=== PATIENT | female | born 1980 | race Caucasian/White ===

== ENCOUNTER 2020-04-26 08:40 | Outpatient (RCR) | payer OTHER, SELFPAY | END 2020-06-03 13:23 | disposition home or self-care (01) | LOC: HO.WCC 08:40 | PROVIDERS: PCP Internal Medicine; Visit Provider Plastic Surgery | DX: I87.311 Chronic venous hypertension (idiopathic) with ulcer of right lower extremity (principal); L97.812 Non-pressure chronic ulcer of other part of right lower leg with fat layer exposed; L89.891 Pressure ulcer of other site, stage 1; E66.01 Morbid (severe) obesity due to excess calories; I89.0 Lymphedema, not elsewhere classified | CPT/HCPCS: 11042 ==

== ENCOUNTER 2020-04-26 09:40 | Outpatient (REF) | payer OTHER, SELFPAY ==
[2020-04-26 11:41] LABS: Anion Gap 12 (12-20); Blood Urea Nitrogen 11 mg/dL (9-16); Carbon Dioxide 28 mmol/L (22-29); Chloride 103 mmol/L (96-108); Estimated Glomerular Filt Rate 56; Phosphorus 3.1 mg/dL (2.7-4.5); Potassium 4.2 mmol/l (3.3-5.1); Sodium 139 mmol/L (135-145)
[2020-04-26 11:54] LABS: Creatinine Urine 232.42 mg/dL; Microalbum/Creatinine Ratio Ur 5.4 ug/mg cr; Protein/Creatinine Ratio, Ur 0.08 (<0.2); Total Protein Urine Random 19 mg/dL (<12)
[2020-04-26 12:11] LABS: RBC Urine 0 /HPF (0); Squamous Epithelial Cell Urine 3+ /LPF
[2020-04-26 13:53] LABS: Appearance Urine CLOUDY; Color Urine YELLOW
[2020-04-26 13:54] LABS: Glucose Urine UA NEG (NEG); Leukocyte Esterase Urine 1+ (NEG); Nitrite Urine NEG (NEG); Specific Gravity - Urine 1.025 (1.005-1.025); Urine Blood NEG (NEG); Urine Ketones NEG (NEG); Urine Protein NEG (NEG-TRACE)
[2020-04-26 15:19] LABS: Renal w Reflex Lab Use Only Order verified
== END 2020-04-26 09:41 | disposition home or self-care (01) ==
LOC: HO.LAB 09:40
PROVIDERS: PCP Internal Medicine; Visit Provider Internal Medicine Nephrology
DX: A41.9 Sepsis, unspecified organism (principal); N17.9 Acute kidney failure, unspecified; E03.9 Hypothyroidism, unspecified; I89.0 Lymphedema, not elsewhere classified
CPT/HCPCS: 36415; 80051; 81001; 81003; 81015; 82043; 82310; 82565; 84100; 84156; 84520; 87086

== ENCOUNTER → 2020-06-09 13:13 | Outpatient (BNVA) | payer OTHER, SELFPAY | PROVIDERS: Visit Provider Internal Medicine | DX: Z76.89 Persons encountering health services in other specified circumstances (principal) ==

== ENCOUNTER 2023-12-11 07:30 | Outpatient (REF) | payer OTHER, SELFPAY ==
[2023-12-11 08:05] LABS: Hematocrit 40.8 % (37.0-47.0); Hemoglobin 12.3 g/dl (12.0-16.0); Mean Corpuscular HGB Conc 30.1 g/dl (31.0-35.0); Mean Corpuscular Hemoglobin 23.9 pg (27.0-33.0); Mean Corpuscular Volume 79.2 fL (80.0-98.0); Mean Platelet Volume 11.2 fL (9.4-12.3); Platelet Count 235 X10*3/uL (160-400); Red Blood Count 5.15 X10*6/uL (4.20-5.50); Red Cell Distribution Width 17.2 % (11.0-16.0)
[2023-12-11 08:12] LABS: Estimated Average Glucose 123 mg/dL; Hemoglobin A1c % 5.9 % (<6.0)
[2023-12-11 08:46] LABS: Alanine Aminotransferase 30 U/L (0-31); Alkaline Phosphatase 101 U/L (39-117); Anion Gap 13 (12-20); Aspartate Amino Transferase 18 U/L (5-31); Bilirubin Total 0.4 mg/dL (0.0-1.0); Blood Urea Nitrogen 10 mg/dL (9-16); Calcium 9.4 mg/dL (8.4-10.2); Carbon Dioxide 22 mmol/L (22-29); Chloride 109 mmol/L (96-108); Cholesterol 188 mg/dL (<200); Estimated Glomerular Filt Rate > 60; Glucose Fasting 134 mg/dL (60-99); HDL Cholesterol 34 mg/dL (>40); LDL Cholesterol Calculated 114 mg/dL (<100); Sodium 140 mmol/L (135-145); Total Protein 7.4 g/dL (6.5-8.0); Triglycerides 201 mg/dL (<150)
[2023-12-11 09:03] LABS: TSH reflex Free T4 9.68 uIU/mL (0.32-4.0); Vitamin D 25-OH Total 5.8 ng/mL (>30)
== END 2023-12-11 07:31 | disposition home or self-care (01) ==
LOC: HO.LAB 07:30
PROVIDERS: PCP Physician Assistant; Visit Provider Physician Assistant
DX: E78.2 Mixed hyperlipidemia (principal); R73.01 Impaired fasting glucose; E03.9 Hypothyroidism, unspecified; E55.9 Vitamin D deficiency, unspecified
CPT/HCPCS: 36415; 80053; 80061; 82306; 83036; 84439; 84443; 85027

== ENCOUNTER 2023-12-18 15:25 | Outpatient (AMB) | payer OTHER, SELFPAY ==
--- NOTE | 2023-12-18 15:28 | A.OFFPC_ITS ---
Vital Signs 12/18/23 15:29 Height 5 ft 5.5 in Weight 370 lb 9.553 oz BMI 60.7 BP 142/84 H Blood Pressure Location Rt radial Position Sitting Pulse 97 Pulse Source Pulse Oximeter Pulse Oximetry (%) 97 Oxygen Delivery Method Room Air Intake Visit Reasons: Follow Up [employer] Sales Consultant Required: No Accompanied by: Self / Same As Patient Allergies dog dander [DOG] Allergy (Unknown, Verified 12/18/23 16:08) SNEEZING/ITCHY pollen extracts [POLLEN] Allergy (Unknown, Verified 12/18/23 16:08) SNEEZING, ITCHY Medication List - Last Reconciled 12/18/23 by Hima Mccloud PA-C No Known Home Meds Tobacco use date assessed: 12/18/23 Dental Screening Dental Screen Date: 12/18/23 Did you have a dental visit in the last 12 months?: No Did you have a dental problem in the last 6 months where you did not have access to dental care?: No Was dental information given to patient?: Yes HPI Follow Up HPI Details ?patient is a 43 year female being here today for annual physical. Patient has a past medical history significant for morbid obesity, lymphedema, hypothyroidism and hyperlipidemia. Concern--> Patient does have severe agoraphobia and has not left home in over 3 years. She has severe anxiety about being in crowds or around other people. She reports her mood has been very up and down she feels as though she is bipolar. She is now interested in mental health medication and perhaps giving set up with a mental health therapist. .. Hypothyroid: Patient continues on levothyroxine 150 mcg. Most recent TSH elevated at 9. PLAN: Will increase her levothyroxine to 175 mcg . Hyperlipidemia: Again unable to get fasting labs due to her severe agoraphobia, has not been able to to leave her house in over 3 years. Most recent lipid panel showing excellent control over total cholesterol and LDL She continues on daily use of simvastatin .. ?smoker:? unfortunately patient continues to smoke and understands she does need to completely quit smoking. She reports she has been smoking more since she has been more anxious lately per Vaccines: Up-to-date with pneumonia vaccine, tetanus vaccine :Mammogram: Willing to do mammogram [facility] Medical History (Updated 12/18/23 @ 16:54 by Hima Mccloud PA-C) Lymphedema Hypothyroidism Surgical History No pertinent past surgical history Family History Father No problems noted. Mother Hypertension Hypothyroidism Maternal Grandmother Lung cancer Maternal Grandfather Colon cancer Maternal Uncle Bone cancer Social History Housing: Apartment Alcohol intake: never Patient Tobacco Use Status: Former Tobacco user Years Smoked: 20 e-Cigarette/Vaping Use: Never Used Second Hand Smoke Exposure: No Substance Use Type: Marijuana service: No Current occupational status: unemployed Cognitive needs: No Hearing needs: No Vision needs: Yes (glasses) Questionnaire PHQ-9 Over the last 2 weeks, how often have you been bothered by any of the following problems? 1. Little interest or pleasure in doing things: not at all 2. Feeling down, depressed, or hopeless: nearly every day 3. Trouble falling or staying asleep, or sleeping too much: nearly every day 4. Feeling tired or having little energy: nearly every day 5. Poor appetite or overeating: nearly every day 6. Feeling bad about yourself - or that you are a failure or have let yourself or your family down: nearly every day 7. Trouble concentrating on things, such as reading the newspaper or watching television: nearly every day 8. Moving or speaking so slowly that other people could have noticed. Or the opposite - being so fidgety or restless that you have been moving around a lot more than usual: nearly every day 9. Thoughts that you would be better off or of hurting yourself in some way: nearly every day Total score: 24 Depression Screening Interpretation: Positive Depression Screening Follow-up: Existing condition, New Medication prescribed and Community Mental Health Worker F/U Depression Screening Done: Yes 79965 - PHQ-9 Billing: Yes Source: Developed by Drs. Ryan Linn, Michelle Mckenzie, Edward Fletcher and colleagues, with an educational emil from [employer]. Thrive Questionnaire Date Thrive assessed: 12/18/23 I am a: Patient What is your living situation today?: I have a steady place to live Within the past 12 months, did the food you bought not last and you didn't have the money to get more?: Never true Within the past 12 months, did you worry whether your food would run out before you got money to buy more?: Never true Do you have trouble paying for medicines?: No Do you have trouble getting transportation to medical appointments?: No Do you have trouble paying your heating and electricity bill?: No Do you have trouble taking care of your child, family member or friend?: No Do you have trouble with day-to-day activities such as bathing, preparing meals, shopping, managing finances, etc.?: Yes Are you currently unemployed and looking for a job?: No Are you interested in more education?: No THRIVE Score: 0 AUDIT C Alcohol Use Questionnaire (AUDIT-C) 1. How often do you have a drink containing alcohol?: Never Total Score: 0 STEVEN-7 AMB Questionnaire STEVEN-7 Date STEVEN - 7 assessed: 12/18/23 Feeling nervous, anxious, or on edge: 3 = Nearly every day Not being able to stop or control worryin = Nearly every day Worrying too much about different things: 3 = Nearly every day Trouble relaxin = Nearly every day Being so restless that it is hard to sit still: 3 = Nearly every day Becoming easily annoyed or irritable: 3 = Nearly every day Feeling afraid as if something awful might happen: 3 = Nearly every day Total STEVEN-7 score (0-4 normal; 5-9 mild; 10-14 moderate; 15-21 severe): 21 Source: Developed by Drs. Ryan Linn, Michelle Mckenzie, Edward Fletcher and colleagues, with an educational emil from [employer]. STEVEN-7 Assessment Billing STEVEN-7 Assessment Tool: STEVEN-7 Assessment [id number] Review of Systems Const Denies body aches, Denies chills, Denies excessive sweating, Denies fatigue, Denies fever(s) and Denies headache(s) Eyes Denies blurry vision ENT Denies dysphagia, Denies vertigo, Denies dizziness, Denies headache(s), Denies hearing loss and Denies tinnitus Card Denies chest pain, Denies chest pain with activity, Denies syncope, Denies irregular heart rhythm and Denies dyspnea Resp Denies chest congestion, Denies cough, Denies hemoptysis, Denies dyspnea and Denies wheezing GI Denies abdominal pain, Denies melena, Denies hematochezia, Denies coffee ground emesis, Denies dysphagia, Denies diarrhea, Denies nausea and Denies vomiting Denies urinary frequency, Denies dysuria, Denies urinary hesitancy and Denies urinary urgency Musc Denies arthralgias, Denies limited range of motion, Denies muscle cramps and Denies muscle weakness Skin/Breast Denies rash and Denies skin ulcer Neuro Denies Abnormal speech present, Denies confusion, Denies vertigo, Denies dizziness, Denies syncope, Denies headache(s), Denies memory loss and Denies seizure-like activity Psych Denies anxiety, Denies confusion, Denies depression, Denies memory loss, Denies panic attacks and Denies paranoia Endo Denies excessive sweating, Denies fatigue, Denies flushing, Denies polydipsia an d Denies polyuria Aller/Immun Denies wheezing Physical exam (Primary Care) Vital Signs: Last Vital Signs Pulse 97 12/18/23 15:29 BP 142/84 H 12/18/23 15:29 Pulse Ox 97 12/18/23 15:29 Oxygen Delivery Method Room Air 12/18/23 15:29 BMI result Body Mass Index 60.7 BMI Assessment/Plan discussion: High BMI High, discussed plan: lifestyle, weight reduction, dietary and physical activity Tobacco/Smoking Status: Tobacco use Status Tobacco use date assessed 12/18/23 12/18/23 15:39 Patient Tobacco Use Status Former Tobacco user 12/18/23 15:40 Tobacco use type 12/18/23 15:40 e-Cigarette/Vaping Use Never Used 12/18/23 15:39 PHQ-9: PHQ-9 Score PHQ-9: Total score 12/18/23 16:14 Depression Screening Interpretation: Positive Depression Screening Follow-up: E xisting condition, New Medication prescribed and Community Mental Health Worker F/U Thrive Assessment: Date of Thrive Assessment Date Thrive assessed 12/18/23 12/18/23 15:39 Const Other: Morbidly obese General: cooperative, comfortable, no acute distress, alert and awake; No confusion Orientation/consciousness: oriented to person, oriented to place, patient oriented x3 and No confusion HENMT Head: Yes normocephalic Ears: external ears normal and TM's normal bilaterally Face and sinus: No sinus tenderness Mouth: Normal oral and palatal mucosa present and tongue normal Teeth and gingiva: dentition normal and gingiva normal Throat: Yes posterior oropharynx normal, Yes tonsils normal and Yes uvula midl ine Eyes Conjunctivae: conjunctivae normal Sclerae: sclerae normal Pupils: Equal, round and reactive pupils present EOM: EOMs intact bilaterally Direct Ophthalmoscopy: No no photophobia Neck Neck: Yes no lymphadenopathy, No tender and Yes no JVD Thyroid: Thyroid normal Carotids: no bruits Chest Chest palpation & inspection: no tenderness Resp Effort & Inspection: normal respiratory effort, no audible wheezes, not labored and no stridor Auscultation: no crackles, no rales, no rhonchi and no wheezes Cardio Jugular venous distension: no JVD Rate: regular rate, not bradycardic and not tachycardic Rhythm: regular rhythm Bruits: no carotid bruits Peripheral pulses: Peripheral pulses 2+ throughout GI Inspection: Yes normal to inspection, No abdominal wall ecchymosis and No visible herniation Palpation (GI): Soft to palpation, nontender, no guarding, not rigid and No hepatosplenomegaly present Auscultation: normoactive bowel sounds General: Yes no CVA tenderness Back/Spine/Pelvis Back: no CVA tenderness and No back tenderness Cervical Spine: cervical ROM normal Thoracic/Lumbar Spine: thoracic and lumbar spine normal to inspection, straight leg raise negative bilaterally, No thoraco-lumbar ROM limited and No lumbar spinal tenderness Skin Lesions: no lesions Rashes: no rashes Wounds: no wounds Neuro General: oriented to person, oriented to place, patient oriented x3, CN's II-XI intact bilaterally and No confusion Cranial nerves: Yes Equal, round and reactive pupils present and Yes Normal accommodation reflex present Cognition (Neuro): normal cognition Speech: No Abnormal speech present Gait exam (Neuro): Normal gait present Motor exam (neuro): 5/5 motor strength present throughout Extrem Right upper extremity: full ROM; no cyanosis Left upper extremity: full ROM; no cyanosis Right lower extremity: no edema Left lower extremity: no edema Psych Appearance: grossly normal Mental Status: mental status grossly normal Affect: normal affect Attitude: cooperative Thought process: Normal thought process present Assessment and Plan Assessment & Plan (1) Annual physical exam: Code(s): Z00.00 - Encounter for general adult medical examination without abnormal findings (2) Hypothyroidism: Code(s): E03.9 - Hypothyroidism, unspecified Qualifiers: Hypothyroidism type: unspecified Qualified Code(s): E03.9 - Hypothyroidism, unspecified Plan: Most recent TSH elevated at 9. Will increase her levothyroxine to 175 mcg. Again reviewed proper administration of the levothyroxine dose. (3) Agoraphobia: Code(s): F40.00 - Agoraphobia, unspecified Plan: She has extreme agoraphobia and has left her house in 3 years. Not interested in getting labs to check her cholesterol or thyroid at this time. Offered her telehealth mental health therapy though she is interested (4) HLD (hyperlipidemia): Code(s): E78.5 - Hyperlipidemia, unspecified Qualifiers: Hyperlipidemia type: mixed hyperlipidemia Qualified Code(s): E78.2 - Mixed hyperlipidemia Plan: WILL CONTINUE SIMVASTATIN. AGAIN ADVISED TO DO FASTING LABS. GOAL LDL TO BE BELOW 130 (5) Asthma: Code(s): J45.909 - Unspecified asthma, uncomplicated Qualifiers: Asthma complication type: uncomplicated Asthma persistence: intermittent Asthma severity: mild Qualified Code(s): J45.20 - Mild inter mittent asthma, uncomplicated Plan: PATIENT REPORTS HER ASTHMA HAS BEEN FAIRLY WELL CONTROLLED WITH P.R.N. USE OF HER ALBUTEROL INHALER. UNFORTUNATELY CONTINUES TO SMOKE AND DOES REPORT AT TIMES HAVING COUGHING FITS TO WHICH SHE ATTRIBUTES TO HER SMOKING.. (6) Tobacco dependence: Code(s): F17.200 - Nicotine dependence, unspecified, uncomplicated Plan: Patient does understand she needs to smoking declines my offers to start nicotin e replacement therapy and medications to help her quit. (7) MDD (major depressive disorder), recurrent episode, moderate: Code(s): F33.1 - Major depressive disorder, recurrent, moderate Plan: Patient's PHQ-9 score positive for depression which has been existing condition for her. She is now willing to try mental health medication. Will try Wellbutrin 150 SR to both help her with her depression and smoking. Will also try to set her up with a counselor to help her talk through for jameel feliz. (8) STEVEN (generalized anxiety disorder): Code(s): F41.1 - Generalized anxiety disorder Plan: Patient's STEVEN-7 score positive for anxiety which has been existing condition for her as well. Again will start Wellbutrin in hopes it will help her with her anxiety. She does use cigarette smoking to help her with her anxiety as well. (9) Breast cancer screening: Code(s): Z12.39 - Encounter for other screening for malignant neoplasm of breast Qualifiers: Breast cancer screening modality: mammogram Qualified Code(s): Z12.31 - Encounter for screening mammogram for malignant neoplasm of breast Plan: Willing to do mammogram (10) Bilateral knee pain: Code(s): M25.561 - Pain in right knee; M25.562 - Pain in left knee Qualifiers: Chronicity: chronic Qualified Code(s): M25.561 - Pain in right knee; M25.562 - Pain in left knee; G89.29 - Other chronic pain Plan: Having bilateral knee pain. Will get x-rays (11) Morbid obesity due to excess calories: Code(s): E66.01 - Morbid (severe) obesity due to excess calories Plan: Patient does understand her BMI is well over 50. She reports it is very difficult for her to exercise due to her mental health disorder. (12) Impaired glucose metabolism: Code(s): R73.09 - Other abnormal glucose Plan: Patient does understand her fasting blood sugar and A1c are in prediabetic range. She will work on low carbohydrate diet Orders: Orders XR knee LT 3V Today G89.29 - Other chronic pain, M25.561 - Pain in right knee, M25.562 - Pain in left knee Comprehensive [place]. Panel Fast 5 Months R73.01 - Impaired fasting glucose XR knee RT 3V Today G89.29 - Other chronic pain, M25.561 - Pain in right knee, M25.562 - Pain in left knee Hemoglobin A1c 5 Months R73.01 - Impaired fasting glucose Lipid Panel 5 Months E78.2 - Mixed hyperlipidemia Complete Blood Count no Diff 5 Months J45.20 - Mild intermittent asthma, uncomplicated TSH reflex Free T4 5 Months E03.9 - Hypothyroidism, unspecified MM screening mammo BI Today Z12.31 - Encounter for screening mammogram for malignant neoplasm of breast Referrals Counseling Referral F33.1 - Major depressive disorder, recurrent, moderate Medications: New mometasone 100 mcg/actuation (Asmanex HFA) 1 puff inhalation BID 30 days 13 grams 3RF J45.20 - Mild intermittent asthma, uncomplicated albuterol sulfate 90 mcg/actuation 1 inh inhalation QID 30 days PRN 8.5 grams 3RF shortness of breath or wheezing J45.20 - Mild intermittent asthma, uncomplicated simvastatin 20 mg PO DAILY 90 tabs 1RF E78.2 - Mixed hyperlipidemia levothyroxine 175 mcg PO DAILY 90 days 90 tabs 0RF E03.9 - Hypothyroidism, unspecified bupropion HCl SR (Wellbutrin SR) 150 mg PO BID 30 days 60 tabs 3RF F17.200 - Nicotine dependence, unspecified, uncomplicated Patient Instructions: Goal: LDL to be below 130 Barriers: Her agoraphobia, adherence to physical activity and healthy eating habits Coding Level of Care Code Est Pt Prev Care 40-64y(47320) Diagnoses Annual physical exam Z00.00 Hypothyroidism, unspecified type E03.9 Hypothyroidism type: unspecified Agoraphobia F40.00 Mixed hyperlipidemia E78.2 Hyperlipidemia type: mixed hyperlipidemia Mild intermittent asthma without complication J45.20 Asthma complication type: uncomplicated Asthma persistence: intermittent Asthma severity: mild Tobacco dependence F17.200 MDD (major depressive disorder), recurrent episode, moderate F33.1 STEVEN (generalized anxiety disorder) F41.1 Encounter for screening mammogram for malignant neoplasm of breast Z12.31 Breast cancer screening modality: mammogram Chronic pain of both knees M25.561; M25.562; G89.29 Chronicity: chronic Morbid obesity due to excess calories E66.01 Impaired glucose metabolism R73.09 Additional Codes STEVEN-7 Assessment Billing - STEVEN-7 Assessment Tool: STEVEN-7 Assessment [id number] ([id number])
[2023-12-18 15:29] VITALS: BP 142/84; PULSE 97; O2SAT 97; BMI 60.7
== END 2023-12-18 16:40 | disposition home or self-care (01) ==
PROVIDERS: PCP Physician Assistant; Visit Provider Physician Assistant
DX: Z00.00 Encounter for general adult medical examination without abnormal findings (principal); E03.9 Hypothyroidism, unspecified; F40.00 Agoraphobia, unspecified; E78.2 Mixed hyperlipidemia; J45.20 Mild intermittent asthma, uncomplicated; F17.200 Nicotine dependence, unspecified, uncomplicated; F33.1 Major depressive disorder, recurrent, moderate; F41.1 Generalized anxiety disorder; Z12.31 Encounter for screening mammogram for malignant neoplasm of breast; M25.561 Pain in right knee; E66.01 Morbid (severe) obesity due to excess calories; M25.562 Pain in left knee
CPT/HCPCS: 99396

== ENCOUNTER 2023-12-24 08:21 | Outpatient (REF) | payer OTHER, SELFPAY ==
--- NOTE | ~2023-12-24 | XR_ITS ---
EXAMINATION: XR KNEE, RIGHT CLINICAL INFORMATION: Pain in right knee COMPARISON: None available. TECHNIQUE: 3 views of the right knee. FINDINGS: No fracture. Moderate-sized joint effusion. Alignment is anatomic. There is mild narrowing of the medial joint compartment. Tricompartment marginal osteophytes are seen. No abnormal soft tissue calcification. XR/XR knee RT 3V IMPRESSION: 1. Mild osteoarthritis. 2. Moderate-sized joint effusion.
--- NOTE | ~2023-12-24 | XR_ITS ---
EXAMINATION: XR KNEE, LEFT CLINICAL INFORMATION: Pain in right knee COMPARISON: None available. TECHNIQUE: Three views of the left knee. FINDINGS: The bones are diffusely demineralized. Small joint effusion. Moderate narrowing of the medial compartment. Small tricompartmental osteophytes. XR/XR knee LT 3V IMPRESSION: Moderate degenerative changes.
== END 2023-12-24 08:22 | disposition home or self-care (01) ==
LOC: HO.XRAY 08:21
PROVIDERS: PCP Physician Assistant; Visit Provider Physician Assistant
DX: M25.561 Pain in right knee (principal); M25.562 Pain in left knee; G89.29 Other chronic pain
CPT/HCPCS: 73562

== ENCOUNTER 2024-01-15 11:37 | Outpatient (AMB) | payer OTHER, SELFPAY ==
--- NOTE | 2024-01-15 11:35 | A.OFFPC_ITS ---
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 Information Interpreted: non-clinical & clinical In Flight Technician: Not Required per policy Accompanied by: Self / Same As Patient Allergies dog dander [DOG] Allergy (Unknown, Verified 01/15/24 12:30) SNEEZING/ITCHY pollen extracts [POLLEN] Allergy (Unknown, Verified 01/15/24 12:30) SNEEZING, ITCHY Medication List - Last Reconciled 01/15/24 by Hima Mccloud PA-C albuterol sulfate 90 mcg/actuation 1 inh inhalation QID PRN 30 days budesonide 90 mcg/actuation (Pulmicort Flexhaler) 1 inh inhalation BID 30 days bupropion HCl SR (Wellbutrin SR) 150 mg PO BID 30 days levothyroxine 175 mcg PO DAILY 90 days simvastatin 20 mg PO DAILY Tobacco use date assessed: 12/18/23 Dental Screening Dental Screen Date: 12/18/23 HPI f/u mental health HPI Details Patient is a 43-year-old female being evaluated today via telephone. At last visit we discussed her anxiety and major depressive disorder and was started on Wellbutrin for both her depressive mood and her smoking. Unfortunately she reports she has not felt any difference in has not reduced her smoking. She is interested in trying a different medication to help her with her smoking. Also we discussed her knee x-rays which did show some mild arthritis and a moderate joint effusion. She is willing to see orthopedics to perhaps have fluid drained from knee. [facility] Medical History Lymphedema Hypothyroidism Surgical History No pertinent past surgical history Family History Father No problems noted. Mother Hypertension Hypothyroidism Maternal Grandmother Lung cancer Maternal Grandfather Colon cancer Maternal Uncle Bone cancer Social History Housing: Apartment Alcohol intake: never Patient Tobacco Use Status: Former Tobacco user Years Smoked: 20 e-Cigarette/Vaping Use: Never Used Second Hand Smoke Exposure: No Substance Use Type: Marijuana service: No Current occupational status: unemployed Cognitive needs: No Hearing needs: No Vision needs: Yes (glasses) Questionnaire Thrive Questionnaire Date Thrive assessed: 12/18/23 STEVEN-7 AMB Questionnaire STEVEN-7 Date STEVEN - 7 assessed: 12/18/23 Source: Developed by Drs. Ryan Linn, Michelle Mckenzie, Edward Fletcher and colleagues, with an educational emil from [employer]. Review of Systems Const Denies headache(s) Eyes Denies loss of vision ENT Denies vertigo, Denies dizziness, Denies headache(s) and Denies sore throat Card Denies chest pain, Denies leg edema and Denies lightheadedness Resp Denies cough, Denies hemoptysis and Denies wheezing GI Denies abdominal pain, Denies melena, Denies constipation, Denies diarrhea and Denies vomiting Denies urinary frequency, Denies dysuria and Denies urinary urgency Musc Denies arthralgias, Denies joint swelling, Denies numbness and Denies tingling Neuro Denies behavioral changes, Denies vertigo, Denies dizziness, Denies headache(s), Denies loss of vision, Denies memory loss, Denies numbness and Denies tingling Psych Denies anxiety, Denies behavioral changes, Denies depression, Denies memory loss and Denies panic attacks Kristian/Lymph Denies easy bleeding and Denies easy bruising Aller/Immun Denies wheezing Physical exam (Primary Care) Tobacco/Smoking Status: Tobacco use Status Tobacco use date assessed 12/18/23 01/15/24 11:35 Patient Tobacco Use Status Former Tobacco user 01/15/24 11:35 Tobacco use type 12/18/23 16:36 e-Cigarette/Vaping Use Never Used 01/15/24 11:35 Are you ready to quit: Yes Tobacco cessation counseling provided: Yes Items discussed: [employer]uitWorks Relapse Prevention: discussed the importance of a supportive environment, discussed negative mood or depression after quitting, weight gain after smoking is common and discussed dietary, exercise and/or lifestyle changes Number of minutes spent counselin CPT code: 69335 - 4-10 Minutes Thrive Assessment: Date of Thrive Assessment Date Thrive assessed 12/18/23 01/15/24 11:35 Telehealth Telehealth Telehealth Platform: Telephone Location of provider rendering services: practice address Location of patient: address on file Patient Identification confirmed using: Name, : Yes Telehealth method: voice only Patient verbally consented to treatment: Yes Patient verbally consented to billing insurance company: Yes Patient informed of any privacy concerns related to visit: Yes Minutes spent on Phone/Video with Pt.: 11 Assessment and Plan Assessment & Plan (1) Tobacco dependence: Code(s): F17.200 - Nicotine dependence, unspecified, uncomplicated Plan: As per HPI patient continues to smoke even reports smoking a bit more. Wellbutrin was not effective. She will like to try generic Chantix to help her with smoking cessation. Will follow-up in the next 4-6 weeks to evaluate the effectiveness of medication. (2) MDD (major depressive disorder), recurrent episode, moderate: Code(s): F33.1 - Major depressive disorder, recurrent, moderate Plan: Patient has started Wellbutrin for her depression though felt it was not effective for her depression and smoking cessation. Will discontinue Wellbutrin due to his being ineffective. Will start generic Chantix (3) Bilateral knee pain: Code(s): M25.561 - Pain in right knee; M25.562 - Pain in left knee Qualifiers: Chronicity: chronic Qualified Code(s): M25.561 - Pain in right knee; M25.562 - Pain in left knee; G89.29 - Other chronic pain Plan: Patient continues to have bilateral knee pain likely related to her weight. X- rays did show mild arthritis and moderate joint effusions. She is interested in seeing orthopedics for evaluation Orders: Referrals Orthopedics Referral G89.29 - Other chronic pain, M25.561 - Pain in right knee, M25.562 - Pain in left knee Medications: New varenicline 0.5 mg PO; Take 0.5 mg qd x 3 days, then 0.5 mg b.i.d. x4 days 11 tabs 0RF 7 days F17.200 - Nicotine dependence, unspecified, uncomplicated, F33.1 - Major depressive disorder, recurrent, moderate varenicline 1 mg PO BID 56 tabs 3RF 28 days F17.200 - Nicotine dependence, unspecified, uncomplicated, F33.1 - Major depressive disorder, recurrent, moderate mometasone 100 mcg/actuation (Asmanex HFA) 1 puff inhalation BID 13 grams 3RF 30 days G89.29 - Other chronic pain, M25.561 - Pain in right knee, M25.562 - Pain in left knee Discontinued bupropion HCl SR (Wellbutrin SR) Discontinued Reason: Doctor's Order 150 mg PO BID 30 days 60 tabs 3RF F17.200 - Nicotine dependence, unspecified, uncomplicated budesonide 90 mcg/actuation (Pulmicort Flexhaler) Discontinued Reason: Doctor's Order 1 inh inhalation BID 30 days 1 ea 3RF J45.20 - Mild intermittent asthma, uncomplicated Coding Level of Care Code Tele Est Pt Level 4 (23935) Diagnoses Tobacco dependence F17.200 MDD (major depressive disorder), recurrent episode, moderate F33.1 Chronic pain of both knees M25.561; M25.562; G89.29 Chronicity: chronic Additional Codes Vital Signs *Quality* - CPT code: 60999 - 4-10 Minutes ([id number])
== END 2024-01-15 13:27 | disposition home or self-care (01) ==
LOC: HO.HMGH 11:37
PROVIDERS: PCP Physician Assistant; Visit Provider Physician Assistant
DX: F17.200 Nicotine dependence, unspecified, uncomplicated (principal); F33.1 Major depressive disorder, recurrent, moderate; M25.561 Pain in right knee; M25.562 Pain in left knee; G89.29 Other chronic pain
CPT/HCPCS: 99214; 99406

== ENCOUNTER 2024-01-16 15:26 | Outpatient (REF) | payer OTHER, SELFPAY ==
--- NOTE | ~2024-01-16 | MM_ITS ---
EXAMINATION: MM SCREENING DIGITAL BREAST TOMOSYNTHESIS, BILATERAL CLINICAL INFORMATION: Screening. Asymptomatic. COMPARISON: Mammography: This is a baseline mammogram. TECHNIQUE: Digital breast tomosynthesis is performed in both the craniocaudal and mediolateral oblique views along with computer-aided detection (CAD). Synthesized 2D images are generated from the tomosynthesis. FINDINGS: The breasts are almost entirely fatty (ACR BI-RADS breast composition Category a). There are no significant masses, abnormal calcifications, or other abnormalities. MM/MM tomosynthesis screening BI IMPRESSION: No mammographic evidence of malignancy. ASSESSMENT: BI-RADS BI-RADS 1 - Negative RECOMMENDATION: Routine annual mammography screening. 1 year F/U This examination should not preclude the clinical evaluation of a suspicious palpable abnormality. This patient's information was entered into a reminder system with a target due date for their next mammogram.
== END 2024-01-16 15:27 | disposition home or self-care (01) ==
LOC: HO.MAMMO 15:26
PROVIDERS: PCP Physician Assistant; Visit Provider Physician Assistant
DX: Z12.31 Encounter for screening mammogram for malignant neoplasm of breast (principal)
CPT/HCPCS: 77063; 77067

== ENCOUNTER → 2024-01-16 15:30 | Outpatient (BNV) | payer OTHER, SELFPAY | PROVIDERS: PCP Physician Assistant; Visit Provider Radiology Diagnostic Radiology | DX: Z12.31 Encounter for screening mammogram for malignant neoplasm of breast (principal) | CPT/HCPCS: 77063; 77067 ==

== ENCOUNTER 2024-02-13 08:47 | Outpatient (AMB) | payer OTHER, SELFPAY ==
--- NOTE | 2024-02-13 08:53 | A.OFFVIS_ITS ---
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 Patient reports knee pain has been present for years with her right knee being the worse. States pain is located at the anterior, lateral and medial aspect of knee. Her pain is worse with prolong standing and walking as well as discomfort with sleeping. No previous tx. Finds no relief with Tylenol or Motrin. Allergies dog dander [DOG] Allergy (Unknown, Verified 02/13/24 09:01) SNEEZING/ITCHY pollen extracts [POLLEN] Allergy (Unknown, Verified 02/13/24 09:01) SNEEZING, ITCHY Medication List - Last Reconciled 02/13/24 by Franco Newby PA-C albuterol sulfate 90 mcg/actuation 1 inh inhalation QID PRN 30 days levothyroxine 175 mcg PO DAILY 90 days mometasone 100 mcg/actuation (Asmanex HFA) 1 puff inhalation BID 30 days simvastatin 20 mg PO DAILY varenicline 0.5 mg PO; Take 0.5 mg qd x 3 days, then 0.5 mg b.i.d. 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 She reports knee pain has been present for years with her right knee being the worse. She states pain is located at the anterior, lateral and medial aspect of knee. She reports that pain is worse with prolonged standing and walking. She has been experiencing discomfort while sleeping. Denies any previous treatment. She finds no relief with Tylenol or Motrin. She states she injured her right leg a couple of years ago. She has been experiencing sharp shooting pain while walking, sitting, and standing. She was concerned about bow legs. [facility] Medical History Lymphedema Hypothyroidism Surgical History No pertinent past surgical history Family History Father No problems noted. Mother Hypertension Hypothyroidism Maternal Grandmother Lung cancer Maternal Grandfather Colon cancer Maternal Uncle Bone cancer Social History Housing: Apartment Alcohol intake: never Patient Tobacco Use Status: Former Tobacco user Years Smoked: 20 e-Cigarette/Vaping Use: Never Used Second Hand Smoke Exposure: No Substance Use Type: Marijuana service: No Current occupational status: unemployed Cognitive needs: No Hearing needs: No Vision needs: Yes (glasses) Review of Systems Const All systems reviewed & are unremarkable except as noted in HPI and below Physical Exam Vital Signs: BMI result Body Mass Index 60.6 Const General: cooperative, healthy appearing, comfortable and no acute distress Orientation/consciousness: patient oriented x3 Neck Neck: Yes normal visual inspection and Yes no JVD Chest Chest palpation & inspection: normal inspection of the chest Resp Effort & Inspection: normal respiratory effort Auscultation: clear to auscultation bilaterally, crackles (no), rales (no), rhonchi (no) and wheezes (no) Cardio Jugular venous distension: no JVD Rate: regular rate Rhythm: regular rhythm Heart sounds: S1 normal heart sound present, S2 normal heart sound present, Murmur heart sound present (no) and Rub heart sound present (no) Neuro General: patient oriented x3 Extrem Other: Bilateral knee: Skin intact, no erythema or joint effusion. She has lateral retropatellar tenderness. Full ROM with crepitus. Negative Damion?s. No ligamentous laxity. NVI. General: Yes normal to inspection, Yes no pedal edema and Yes no calf tenderness Office Procedures Joint Injection/Drain Joint Injection/Drain Primary Site: left knee Secondary Site: right knee Prep: site was prepped using aseptic technique, ethochloride spray was applied and injection warnings given Injected: 40 mg of, DepoMedrol, with 8 mL of, 1% plain lidocaine and in the joint Approach Used: anterolateral Procedure: The patient tolerated the procedure well and there was some relief with the local anesthesia Coding 45529 - Glenohumeral/Tronchanteric Bursa/Intraarticular Procedure code (CPT) selection complete Results Reviewed Results Reviewed: xr of bilat knee obtained on 12/24/23 IMPRESSION: 1. Mild osteoarthritis. 2. Moderate-sized joint effusion. Assessment & Plan Assessment & Plan (1) Patellofemoral disorder of both knees: Code(s): M22.2X1 - Patellofemoral disorders, right knee; M22.2X2 - Patellofemoral disorders, left knee Category: Medical Plan We discussed options today, which include steroid injection. The patient did consent to move forward with the bilateral knee steroid injection, which was tolerated well. I recommended rest, ice, and elevation and OTC anti- inflammatories as needed for discomfort. If symptoms persist over the next 6-8 weeks, they will contact the office, otherwise as needed. We also discussed their diabetes and the effect the steroid injection can have on their blood glucose levels; therefore, they will continue to monitor these very closely over the next 72 hours. If there are any concerns, they should report to the ED immediately. Patient Instructions: Scribed for Franco Newby PA-C, by Rocío Soni medical records technician, on 02/13/2024 at 9:30 AM EST. IFranco PA-C, have personally reviewed and agree with the information entered by the scribe. Coding Level of Care Code New Pt Level 3 (74067) Diagnoses Patellofemoral disorder of both knees M22.2X1; M22.2X2 CPT Codes Coding - Joint 7: 20233 - Glenohumeral/Tronchanteric Bursa/Intraarticular ([id number])
[2024-02-13 09:00] VITALS: BMI 60.6
== END 2024-02-13 10:25 | disposition home or self-care (01) ==
LOC: HO.HOS 08:47
PROVIDERS: PCP Physician Assistant; Visit Provider Physician Assistant
DX: M22.2X1 Patellofemoral disorders, right knee (principal); M22.2X2 Patellofemoral disorders, left knee
CPT/HCPCS: 20610; 99203

== ENCOUNTER → 2024-02-13 08:47 | Outpatient (BNVA) | payer OTHER, SELFPAY | PROVIDERS: PCP Physician Assistant; Visit Provider Physician Assistant | DX: M22.2X1 Patellofemoral disorders, right knee (principal); M22.2X2 Patellofemoral disorders, left knee | CPT/HCPCS: 20610; 99202; J1010 ==

== ENCOUNTER 2024-08-06 10:44 | Outpatient (REF) | payer OTHER, SELFPAY ==
--- NOTE | ~2024-08-06 | XR_ITS ---
EXAMINATION: XR CERVICAL SPINE 2-3 VIEWS HISTORY: M54.2 - Cervicalgia COMPARISON: There are no prior studies for comparison. FINDINGS: AP, lateral, and open-mouth odontoid views of the cervical spine are submitted. Osseous mineralization is normal. Seven cervical vertebral bodies are identified maintaining normal height and alignment without evidence of fracture or subluxation. There is mild anterior osteophyte formation at C5-6 and C6-7. The remaining intervertebral disc spaces are maintained. The odontoid and lateral masses of C1 are intact. There is no prevertebral soft tissue swelling. XR/XR cervical spine 3V IMPRESSION: Minimal degenerative changes at C5-6 and C7. Electronically signed by: Ryan Mtz MD 08/08/2024 07:50 AM EST
--- NOTE | ~2024-08-06 | XR_ITS ---
EXAMINATION: XR ANKLE 3 OR MORE VIEWS LEFT HISTORY: M25.572 - Pain in left ankle and joints of left foot COMPARISON: There are no prior studies available for comparison. FINDINGS: Three views of the left ankle are submitted. Osseous mineralization is normal. There is no fracture or dislocation. The joint spaces are preserved. There are prominent calcaneal spurs at the plantar aspect and at the insertion of the Achilles tendon. The soft tissues are unremarkable. XR/XR ankle LT min 3V IMPRESSION: Calcaneal spurs at the plantar aspect and at the insertion of the Achilles tendon. Otherwise unremarkable examination of the left ankle. Electronically signed by: Ryan Mtz MD 08/08/2024 07:54 AM EST
--- NOTE | ~2024-08-06 | XR_ITS ---
EXAMINATION: XR CHEST 2 VIEWS HISTORY: R05.3 - Chronic cough COMPARISON: Comparison is made with the prior examination dated 03/17/2020. FINDINGS: PA and lateral views of the chest are submitted. The lungs are expanded and clear. There is no pleural effusion, pneumothorax, or pulmonary vascular congestion. The heart is normal in size. There is mild degenerative disc disease of the spine. XR/XR chest 2V IMPRESSION: No acute cardiopulmonary abnormality. Electronically signed by: Ryan Mtz MD 08/08/2024 07:55 AM EST
--- NOTE | ~2024-08-06 | XR_ITS ---
EXAMINATION: XR THORACIC SPINE 3 VIEWS HISTORY: M54.6 - Pain in thoracic spine COMPARISON: There are no prior studies for comparison. FINDINGS: AP and lateral views of the thoracic spine are submitted. Osseous mineralization is normal. The vertebral bodies maintain normal height and alignment without evidence of fracture or subluxation. There is mild degenerative disc disease with disc space narrowing and osteophyte formation. The visualized paraspinal soft tissues are unremarkable. XR/XR thoracic spine 3V IMPRESSION: Mild degenerative disc disease. Electronically signed by: Ryan Mtz MD 08/08/2024 07:51 AM EST
--- NOTE | ~2024-08-06 | XR_ITS ---
EXAMINATION: XR ELBOW 1-2 VIEWS LEFT HISTORY: M25.522 - Pain in left elbow COMPARISON: There are no prior studies available for comparison. FINDINGS: Three views of the left elbow are submitted. Osseous mineralization is normal. There is no fracture or dislocation. The joint spaces are preserved. The soft tissues are unremarkable. XR/XR elbow LT 2V IMPRESSION: Unremarkable examination of the left elbow. Electronically signed by: Ryan Mtz MD 08/08/2024 07:52 AM EST
--- NOTE | ~2024-08-06 | XR_ITS ---
EXAMINATION: XR LUMBAR SPINE 2-3 VIEWS HISTORY: M54.50 - Low back pain, unspecified COMPARISON: There are no prior studies for comparison. FINDINGS: AP, lateral, and coned down views of the lumbar spine are submitted. Osseous mineralization is normal. Five nonrib-bearing lumbar vertebral bodies are identified, maintaining normal height and alignment without evidence of fracture or spondylolisthesis. There is minimal degenerative disc disease with anterior osteophyte formation. The posterior elements are intact. The visualized paraspinal soft tissues are unremarkable. XR/XR lumbar spine 2-3V IMPRESSION: Minimal degenerative changes. Electronically signed by: Ryan Mtz MD 08/08/2024 07:54 AM [facility]
== END 2024-08-06 10:45 | disposition home or self-care (01) ==
LOC: HO.LAB 10:44
PROVIDERS: PCP Physician Assistant; Visit Provider Physician Assistant
DX: R73.09 Other abnormal glucose (principal); I10 Essential (primary) hypertension; R05.3 Chronic cough; Z23 Encounter for immunization; F33.1 Major depressive disorder, recurrent, moderate; F41.1 Generalized anxiety disorder; E03.9 Hypothyroidism, unspecified; E78.2 Mixed hyperlipidemia; M25.522 Pain in left elbow; M54.50 Low back pain, unspecified; G89.29 Other chronic pain; M25.572 Pain in left ankle and joints of left foot; M54.6 Pain in thoracic spine; M54.2 Cervicalgia; K59.01 Slow transit constipation; E66.813 Obesity, class 3; Z68.44 Body mass index [BMI] 60.0-69.9, adult; F17.200 Nicotine dependence, unspecified, uncomplicated; Z79.899 Other long term (current) drug therapy
CPT/HCPCS: 71046; 72040; 72072; 72100; 73070; 73610; 83036; 90471; 90656; 96127; 99212

== ENCOUNTER 2024-08-06 10:44 | Outpatient (AMB) | payer OTHER, SELFPAY ==
--- NOTE | 2024-08-06 10:52 | A.OFFPC_ITS ---
Vital Signs 08/06/24 10:59 Height 5 ft 5.5 in Weight 369 lb 14.97 oz BMI 60.6 BP 140/80 H Blood Pressure Location Lt brachial Position Sitting Pulse 92 Pulse Source Pulse Oximeter Temp 97.3 F Temp Source Temporal Artery Scan Pulse Oximetry (%) 97 Oxygen Delivery Method Room Air Intake Visit Reasons: f/u IGM/ HLD Special Delivery Messenger Required: No Accompanied by: Self / Same As Patient Allergies dog dander [DOG] Allergy (Unknown, Verified 08/06/24 11:11) SNEEZING/ITCHY pollen extracts [POLLEN] Allergy (Unknown, Verified 08/06/24 11:11) SNEEZING, ITCHY Medication List - Last Reconciled 08/06/24 by Hima Mccloud PA-C albuterol sulfate 90 mcg/actuation 1 inh inhalation QID PRN 90 days levothyroxine 175 mcg PO DAILY 90 days mometasone 100 mcg/actuation (Asmanex HFA) 1 puff inhalation BID 90 days simvastatin 20 mg PO DAILY varenicline 0.5 mg PO; Take 0.5 mg qd x 3 days, then 0.5 mg b.i.d. x4 days 7 days varenicline 1 mg PO BID 28 days Tobacco use date assessed: 08/06/24 Dental Screening Dental Screen Date: 08/06/24 Did you have a dental visit in the last 12 months?: No Did you have a dental problem in the last 6 months where you did not have access to dental care?: No Was dental information given to patient?: Patient declined HPI f/u IGM/ HLD HPI Details patient is a 44 year female being here today for follow-up visit Patient has a past medical history significant for morbid obesity, lymphedema, h ypothyroidism and hyperlipidemia. Concern--> patient reports having pain in her ankle, elbow, lower back and mid thoracic spine. She is asking for a full body scan . Unfortunately continues to suffer with agoraphobia though she is talking to a mental health therapist and working on getting out of the house more. Generally gets out of the house for medical appointments. .. Hypothyroid: Patient continues on levothyroxine 150 mcg. Most recent TSH elevated at 9. She continues on levothyroxine 175 mcg. Impaired glucose metabolism: Most recent A1c has improved to 5.7 . Hyperlipidemia: Again unable to get fasting labs due to her severe agoraphobia, has not been able to to leave her house in over 3 years. Most recent lipid panel showing excellent control over total cholesterol and LDL She continues on daily use of simvastatin .. ?smoker:? unfortunately patient continues to smoke and understands she does need to completely quit smoking. Has tried Chantix nicotine patches though have not been effective for her. She reports she has been smoking more since she has been more anxious lately . Laboratory Tests 03/19/20 12/11/23 08/06/24 03:04 07:49 10:54 RBC 5.15 Hgb 12.3 Creatinine 0.87 Fasting Glucose 134 H Hgb A1c (Clinic) 5.7 Hemoglobin A1c % 5.9 Triglycerides 201 H LDL Cholesterol, C alc 114 H TSH 3rd Generation 82.70 H TSH 9.68 H PFSH Medical History Lymphedema Hypothyroidism Surgical History No pertinent past surgical history Family History Father No problems noted. Mother Hypertension Hypothyroidism Maternal Grandmother Lung cancer Maternal Grandfather Colon cancer Maternal Uncle Bone cancer Social History Housing: Apartment Alcohol intake: never Patient Tobacco Use Status: Former Tobacco user Years Smoked: 20 e-Cigarette/Vaping Use: Never Used Second Hand Smoke Exposure: No Substance Use Type: Marijuana service: No Current occupational status: unemployed Cognitive needs: No Hearing needs: No Vision needs: Yes (glasses) Questionnaire PHQ-9 Over the last 2 weeks, how often have you been bothered by any of the following problems? 1. Little interest or pleasure in doing things: nearly every day 2. Feeling down, depressed, or hopeless: nearly every day 3. Trouble falling or staying asleep, or sleeping too much: nearly every day 4. Feeling tired or having little energy: nearly every day 5. Poor appetite or overeating: nearly every day 6. Feeling bad about yourself - or that you are a failure or have let yourself or your family down: nearly every day 7. Trouble concentrating on things, such as reading the newspaper or watching television: nearly every day 8. Moving or speaking so slowly that other people could have noticed. Or the opposite - being so fidgety or restless that you have been moving around a lot more than usual: nearly every day 9. Thoughts that you would be better off or of hurting yourself in some way: nearly every day Total score: 27 Depression Screening Interpretation: Positive Depression Screening Follow-up: Existing condition and In treatment Depression Screening Done: Yes 61544 - PHQ-9 Billing: Yes Source: Developed by Drs. Ryan Linn, Michelle Mckenzie, Edward Fletcher and colleagues, with an educational emil from [employer]. Thrive Questionnaire Date Thrive assessed: 08/06/24 I am a: Patient What is your living situation today?: I have a steady place to live Within the past 12 months, did the food you bought not last and you didn't have the money to get more?: Never true Within the past 12 months, did you worry whether your food would run out before you got money to buy more?: Never true Do you have trouble paying for medicines?: No Do you have trouble getting transportation to medical appointments?: No Do you have trouble paying your heating and electricity bill?: No Do you have trouble taking care of your child, family member or friend?: No Do you have trouble with day-to-day activities such as bathing, preparing meals, shopping, managing finances, etc.?: No Are you currently unemployed and looking for a job?: No Are you interested in more education?: No Please select the resources that you would like help with: None Currently or been in a relationship where the following occur: No concerns reported THRIVE Score: 0 AUDIT C Alcohol Use Questionnaire (AUDIT-C) 1. How often do you have a drink containing alcohol?: Never 3. How often do you have six or more drinks on one occasion?: Never Total Score: 0 STEVEN-7 AMB Questionnaire STEVEN-7 Date STEVEN - 7 assessed: 08/06/24 Feeling nervous, anxious, or on edge: 3 = Nearly every day Not being able to stop or control worryin = Nearly every day Worrying too much about different things: 3 = Nearly every day Trouble relaxin = Nearly every day Being so restless that it is hard to sit still: 3 = Nearly every day Becoming easily annoyed or irritable: 3 = Nearly every day Feeling afraid as if something awful might happen: 3 = Nearly every day Total STEVEN-7 score (0-4 normal; 5-9 mild; 10-14 moderate; 15-21 severe): 21 Source: Developed by Drs. Ryan Linn, Michelle Mckenzie, Edward Fletcher and colleagues, with an educational emil from [employer]. STEVEN-7 Assessment Billing STEVEN-7 Assessment Tool: STEVEN-7 Assessment 15379 Physical exam (Primary Care) Vital Signs: Last Vital Signs Temp 97.3 F 08/06/24 10:59 Pulse 92 08/06/24 10:59 BP 140/80 H 08/06/24 10:59 Pulse Ox 97 08/06/24 10:59 Oxygen Delivery Method Room Air 08/06/24 10:59 BMI result Body Mass Index 60.6 BMI Assessment/Plan discussion: High BMI High, discussed plan: lifestyle, weight reduction, dietary and physical activity Tobacco/Smoking Status: Tobacco use Status Tobacco use date assessed 08/06/24 08/06/24 11:12 Patient Tobacco Use Status Former Tobacco user 08/06/24 10:52 Tobacco use type 01/18/24 14:03 e-Cigarette/Vaping Use Never Used 08/06/24 10:52 Are you ready to quit: No Tobacco cessation counseling provided: Yes Items discussed: Nicotine replacement and QuitWorks Relapse Prevention: discussed the importance of a supportive environment, discussed negative mood or depression after quitting, weight gain after smoking is common and discussed dietary, exercise and/or lifestyle changes Number of minutes spent counselin CPT code: 00647 - 4-10 Minutes PHQ-9: PHQ-9 Score PHQ-9: Total score 27 08/06/24 11:22 Depression Screening Interpretation: Positive Depression Screening Follow-up: Existing condition and In treatment Thrive Assessment: Date of Thrive Assessment Date Thrive assessed 08/06/24 08/06/24 11:08 Currently or been in a relationship where the following occur: No concerns reported Office Procedures Flu Questionnaire Does the patient have a severe egg allergy?: No Does the patient have severe life threatening allergies?: No Does the patient have a fever or illness today?: No Has the patient ever had Guillain-[place] Syndrome?: No Has the patient ever had any past reaction to a flu shot?: No Results AMB Hemoglobin A1c AMB Hemoglobin A1c 5.7 % Last Edit by NICK Stacy on 08/06/24 11:09 Immunizations Fluarix Triv [id number] (PF) 45 mcg (15 mcg x 3)/0.5 mL IM syringe Performing Provider: Hima Mccloud PA-C [facility] Administered by: NICK Stacy on 08/06/24 11:09 Dose Route Admin Location Dispensed Lot Number Expiration Date [employer] 0.5 mL IM Left Deltoid 0.5 mL [id number] 01/19/25 [id number] [employer] VIS Given Date VIS Provided VIS Publication Date 08/06/24 Single Vaccine 21 Eligibility Eligibility Date Funding Source Not [facility] Eligible 08/06/24 Private Results Reviewed Results Reviewed: Laboratory Last Values Hgb A1c (Clinic) 5.7 % (4.0-6.0) 08/06/24 10:54 Coding Level of Care Code Est Pt Level 4 (69488) Diagnoses Impaired glucose metabolism R73.09 Primary hypertension I10 Hypertension type: primary hypertension Chronic cough R05.3 Cough type: chronic MDD (major depressive disorder), recurrent episode, moderate F33.1 STEVEN (generalized anxiety disorder) F41.1 Hypothyroidism, unspecified type E03.9 Hypothyroidism type: unspecified Mixed hyperlipidemia E78.2 Hyperlipidemia type: mixed hyperlipidemia Left elbow pain M25.522 Lumbar spine pain M54.50 Chronic pain of left ankle M25.572; G89.29 Chronicity: chronic Thoracic spine pain M54.6 Cervical spine pain M54.2 Slow transit constipation K59.01 Constipation type: slow transit constipation Class 3 obesity E66.813 Tobacco dependence F17.200 Additional Codes STEVEN-7 Assessment Billing - STEVEN-7 Assessment Tool: STEVEN-7 Assessment 16438 ([id number]) PHQ-9 - 39394 - PHQ-9 Billing: Yes ([id number]) Vital Signs *Quality* - CPT code: 40226 - 4-10 Minutes ([id number]) Assessment & Plan Assessment & Plan (1) Impaired glucose metabolism: Code(s): R73.09 - Other abnormal glucose Category: Medical Plan: Today's A1c of 5.7 from 5.9. Unfortunately has not lost much weight. She has been trying to work on a lower calorie diet. (2) HTN (hypertension): Code(s): I10 - Essential (primary) hypertension Category: Medical Qualifiers: Hypertension type: primary hypertension Qualified Code(s): I10 - Essential (primary) hypertension Plan: Patient's blood pressure elevated today in office. She is willing to start blood pressure medication. Will start hydrochlorothiazide 12.5 daily. Goal blood pressures to be below 140/90 (3) Cough: Code(s): R05.9 - Cough, unspecified Category: Medical Qualifiers: Cough type: chronic Qualified Code(s): R05.3 - Chronic cough Plan: Patient reports having a chronic cough over the last several years. She does understand this probably is related to her tobacco use disorder and her asthma. She is willing to get an x-ray of her chest to evaluate for any consolidation. Will also send for PFT testing to evaluate for asthma severity. She is willing to try a maintenance inhaler to help capture better control over asthma. Again advised strongly to stop smoking. (4) MDD (major depressive disorder), recurrent episode, moderate: Code(s): F33.1 - Major depressive disorder, recurrent, moderate Category: Medical Plan: Patient's PHQ-9 score positive for moderate to severe depression which has been existing condition for her.. Patient continues to suffer depression and she is speaking with a mental health therapist at this time. She is not interested in mental health medications at this time (5) STEVEN (generalized anxiety disorder): Code(s): F41.1 - Generalized anxiety disorder Category: Medical Plan: Patient's STEVEN-7 score positive for severe anxiety. Patient continues to suffer with anxiety particularly agoraphobia. She has been working with her mental therapist on this. (6) Hypothyroidism: Code(s): E03.9 - Hypothyroidism, unspecified Category: Medical Qualifiers: Hypothyroidism type: unspecified Qualified Code(s): E03.9 - Hypothyroidism, unspecified Plan: Patient continues on levothyroxine 175 mcg which was increased in the spring. Will recheck TSH to assure normal TSH (7) HLD (hyperlipidemia): Code(s): E78.5 - Hyperlipidemia, unspecified Category: Medical Qualifiers: Hyperlipidemia type: mixed hyperlipidemia Qualified Code(s): E78.2 - Mixed hyperlipidemia Plan: Most recent lipid panel showing good control over total cholesterol and LDL. Will continue simvastatin 20 mg with goal LDL to remain below 130 (8) Left elbow pain: Code(s): M25.522 - Pain in left elbow Category: Medical Plan: As per HPI (9) Lumbar spine pain: Code(s): M54.50 - Low back pain, unspecified Category: Medical Plan: As per HPI will get x-rays (10) Left ankle pain: Code(s): M25.572 - Pain in left ankle and joints of left foot Category: Medical Qualifiers: Chronicity: chronic Qualified Code(s): M25.572 - Pain in left ankle and joints of left foot; G89.29 - Other chronic pain Plan: As per HPI (11) Thoracic spine pain: Code(s): M54.6 - Pain in thoracic spine Category: Medical Plan: As above (12) Cervical spine pain: Code(s): M54.2 - Cervicalgia Category: Medical Plan: As above (13) Constipation: Code(s): K59.00 - Constipation, unspecified Category: Medical Qualifiers: Constipation type: slow transit constipation Qualified Code(s): K59.01 - Slow transit constipation Plan: Patient continues to suffer from constipation. This could be related to her mental health disorder as a irritable bowel constipation type. Will supply patient with thought her MiraLax to use to help reduce bowel movements. (14) Class 3 obesity: Code(s): E66.813 - Obesity, class 3 Category: Medical Plan: Patient does understand her BMI is over 60 and will try to work on better eating habits. She has not been able to be physically active due to her severe anxiety and her pain complaints. (15) Tobacco dependence: Code(s): F17.200 - Nicotine dependence, unspecified, uncomplicated Category: Medical Plan: Patient does understand she needs to quit smoking. Has tried Chantix and nicotine replacement though have not been effective. She has a lot of anxiety and reports smoking does help with her anxiety. Orders: Orders XR chest 2V 08/06/24 R05.3 - Chronic cough XR ankle LT min 3V 08/06/24 M25.572 - Pain in left ankle and joints of left foot XR lumbar spine 2-3V 08/06/24 M54.50 - Low back pain, unspecified XR elbow LT 2V 08/06/24 M25.522 - Pain in left elbow XR cervical spine 3V 08/06/24 M54.2 - Cervicalgia Influenza [id number] Immunization 08/06/24 Z23 - Encounter for immunization AMB Hemoglobin A1c 08/06/24 R73.09 - Other abnormal glucose Microalbumin, Random (w Creat) 08/06/24 I10 - Essential (primary) hypertension Comprehensive [place]. Panel Fast 08/06/24 R73.09 - Other abnormal glucose Lipid Panel 08/06/24 E78.2 - Mixed hyperlipidemia TSH reflex Free T4 08/06/24 E03.9 - Hypothyroidism, unspecified PFT pulmonary function test 08/06/24 J45.20 - Mild intermittent asthma, uncomplicated XR thoracic spine 3V 08/06/24 M54.6 - Pain in thoracic spine Medications: New polyethylene glycol 3350 (Miralax) Makes 17 g packet in to 8 oz of water and drink daily 17 grams PO DAILY 30 ea 2RF Constipation 30 days K59.01 - Slow transit constipation fluticasone propion-salmeterol 115-21 mcg/actuation (Advair HFA) 2 puffs inhalation BID 12 grams 3RF 30 days J45.20 - Mild intermittent asthma, uncomplicated hydrochlorothiazide 12.5 mg PO DAILY 90 tabs 1RF 90 days I10 - Essential (primary) hypertension Refilled simvastatin 20 mg PO DAILY 90 tabs 1RF E78.2 - Mixed hyperlipidemia albuterol sulfate 90 mcg/actuation 1 inh inhalation QID PRN 3 inhalers 3RF shortness of breath or wheezing 90 days J45.20 - Mild intermittent asthma, uncomplicated Discontinued varenicline Discontinued Reason: Doctor's Order 0.5 mg PO; Take 0.5 mg qd x 3 days, then 0.5 mg b.i.d. x4 days 7 days 11 tabs 0RF F17.200 - Nicotine dependence, unspecified, uncomplicated, F33.1 - Major depressive disorder, recurrent, moderate varenicline Discontinued Reason: Doctor's Order 1 mg PO BID 28 days 56 tabs 3RF F17.200 - Nicotine dependence, unspecified, uncomplicated, F33.1 - Major depressive disorder, recurrent, moderate mometasone 100 mcg/actuation (Asmanex HFA) Discontinued Reason: Doctor's Order 1 puff inhalation BID 90 days 3 i katialers 3RF J45.20 - Mild intermittent asthma, uncomplicated
[2024-08-06 10:59] VITALS: BP 140/80; PULSE 92; TEMP 36.3; O2SAT 97; BMI 60.6
== END 2024-08-06 11:40 | disposition home or self-care (01) ==
PROVIDERS: PCP Physician Assistant; Visit Provider Physician Assistant
DX: Z23 Encounter for immunization (principal); R73.09 Other abnormal glucose

== ENCOUNTER 2024-08-14 07:42 | Outpatient (REF) | payer OTHER, SELFPAY ==
--- NOTE | ~2024-08-14 | XR_ITS ---
EXAMINATION: XR ANKLE 3 OR MORE VIEWS RIGHT HISTORY: M25.571 - Pain in right ankle and joints of right foot COMPARISON: There are no prior studies available for comparison. FINDINGS: Three views of the right ankle are submitted. Osseous mineralization is normal. There is no fracture or dislocation. The joint spaces are preserved. There are prominent calcaneal spurs at the plantar aspect and at the insertion of the Achilles tendon. The soft tissues are unremarkable. XR/XR ankle RT min 3V IMPRESSION: Prominent calcaneal spurs at the plantar aspect and at the insertion of the Achilles tendon. Electronically signed by: Ryan Mtz MD 08/14/2024 02:09 PM [facility]
== END 2024-08-14 07:43 | disposition home or self-care (01) ==
LOC: HO.XRAY 07:42
PROVIDERS: PCP Physician Assistant; Visit Provider Physician Assistant
DX: M25.571 Pain in right ankle and joints of right foot (principal)
CPT/HCPCS: 73610

== ENCOUNTER → 2024-08-14 09:04 | Outpatient (BNV) | payer OTHER, SELFPAY | PROVIDERS: PCP Physician Assistant; Visit Provider Radiology Diagnostic Radiology | DX: M77.31 Calcaneal spur, right foot (principal) | CPT/HCPCS: 73610 ==

== ENCOUNTER → 2024-08-27 08:21 | Outpatient (BNVA) | payer OTHER, SELFPAY | PROVIDERS: PCP Physician Assistant; Visit Provider Physician Assistant Surgical ==

== ENCOUNTER 2024-09-10 08:05 | Outpatient (AMB) | payer OTHER, SELFPAY ==
--- NOTE | 2024-09-10 10:30 | MHC.OFFVISWM ---
VS Expanded 09/10/24 10:42 Height 5 ft 5.5 in Weight 357 lb 2 oz BMI 58.5 Body Fat % 48.7 Body Fat Mass 174 Fat Free Mass 183.2 Visceral Fat Rating 20 Body Water % 36.7 Body Water Mass 131 Basal Metabolic Rate/Score 2,671 Intake Visit Reasons: TV JUMPBASTING [employer] [facility] M[facility] Allergies dog dander [DOG] Allergy (Unknown, Verified 09/10/24 10:30) SNEEZING/ITCHY pollen extracts [POLLEN] Allergy (Unknown, Verified 08/06/24 11:11) SNEEZING, ITCHY Medication List - Last Reconciled 09/10/24 by Tyson Mackay MD albuterol sulfate 90 mcg/actuation 1 inh inhalation QID PRN 90 days fluticasone propion-salmeterol 115-21 mcg/actuation (Advair HFA) 2 puffs inhalation BID 30 days hydrochlorothiazide 12.5 mg PO DAILY 90 days levothyroxine 175 mcg PO DAILY 90 days polyethylene glycol 3350 (Miralax) 17 grams PO DAILY 30 days simvastatin 20 mg PO DAILY HPI HPI TV JUMPBASTING [employer]VAS BASTER MWL: Details: Start time: 10.27am, End time: 11.12am ?I spent 40 minutes speaking with the patient on the phone plus an additional 5 minutes reviewing and updating records for a total of 45 minutes HPI Comments Details: Previous weight loss efforts: self diets Wakes up: 8am, Sleeps: 12am Breakfast: none Lunch: none Dinner: 4pm (chicken, pasta, vegetables) Snacks: 1-2 times before dinner (chips, cookies, crackers), 3-4 times after dinner (dessert, fruit) Exercise: Has a stationary bike (no calorie tracking) Fluids: Coffee/tea: none, soda: Pepsi (2 lt per week), Crystal light iced tea, ETOH: none PFSH Medical History (Updated 09/10/24 @ 10:35 by Tyson Mackay MD) Morbid obesity Lymphedema Hypothyroidism Surgical History No pertinent past surgical history Family History Father No problems noted. Mother Hypertension Hypothyroidism Maternal Grandmother Lung cancer Maternal Grandfather Colon cancer Maternal Uncle Bone cancer Social History (Updated 08/27/24 @ 08:39 by Radha Leonard [facility]) Housing: Apartment Alcohol intake: current Alcohol intake frequency: holidays/special occasions only Patient Tobacco Use Status: Current everyday Tobacco user Tobacco use type: Cigarette Cigarette Packs Per Day: 1 Cigarettes Per Day: 20 e-Cigarette/Vaping Use: Never Used Second Hand Smoke Exposure: No Substance Use Type: Marijuana service: No Current occupational status: unemployed Cognitive needs: No Hearing needs: No Vision needs: Yes (glasses) Telehealth Telehealth Telehealth Platform: Telephone Location of provider rendering services: practice address Location of patient: address on file Patient Identification confirmed using: Name, : Yes Telehealth method: voice only Patient verbally consented to treatment: Yes Patient verbally consented to billing insurance company: Yes Patient informed of any privacy concerns related to visit: Yes Minutes spent on Phone/Video with Pt.: 45 Assessment & Plan Assessment & Plan (1) Morbid obesity: Code(s): E66.01 - Morbid (severe) obesity due to excess calories Category: Medical Plan: 1.? Plan for lap sleeve gastrectomy. If diaphragmatic or ventral hernias are present at time of surgery, these will be repaired laparoscopically as well. I emphasized the importance of close follow-up, adherence to instructions and good communication. The surgery does not replace the need to change your lifestlyle which is the cause of the obesity problem. The surgery provides the motivation to try again to change your lifestyle, it reduces the appetite and make the transition to a better lifestyle easier and doubles the amount of weight you would lose compared to doing the lifestyle change without the surgery. You will need to be on a liquid diet with protein shakes for 2 weeks before surgery to maximize weight loss and boost your nutritional status to recover better from surgery and also for the first two weeks after surgery to let the stomach heal before we introduce other foods. After the first 2 weeks we will introduce protein bars and soft foods like scrambled eggs, cottage cheese and yogurt and after the 6th week will introduce meat, fish and cooked vegetables in small amounts. Over time you should be able to eat everything in small amounts. Side effects like nausea, vomiting, heartburn or abdominal pain are not common in the practice unless you are not following in the practice. This operation requires lifetime commitment to following in our practice and communication with me. You will much less weight and experience side effects if you don?t communicate or not following in the practice. Complications are rare and in our practice is about 1/10 of the national average. However, you can develop bleeding that may require transfusion (hasn?t happened for year in the practice), you may from complications (we did not have any deaths in the practice) and infections. Infections are usually a result of breakdown in communication or not understanding or following directions correctly. They are difficult to treat, they can happen during the first 6 weeks, they may require to be in the hospital for weeks or even months, not being able to eat by mouth and you may have drains and surgeries to try and correct the issue. Other risks and complications include possible conversion to an open procedure, leaks, small bowel obstruction, blood clots, cardiac, or pulmonary complications, as fci complications such as ulcers, insufficient weight loss and vitamin deficiencies. 2. You will receive a link of our software brigido to generate an individualized nutritional and exercise plan specific for you. Please send me a screenshot of the plans you will generate Meal to include lean meat (beef, fish, pork, turkey, chicken), or ethiopian yogurt, or egg whites, or beans with a salad with olive oil and fruits (berries, pears, apples, kiwi). Avoid salt, breads, potatoes, rice, pasta, desserts. ?3. If you choose shakes, each shake would be drunk slowly, like coffee in a period of 2 hours. ?4. If you choose bars, cut each bar in 4 pieces and eat each piece in 30min ?to make each bar last 2 hours. ?5. I emphasized the importance of measuring accurately the food portion and measure it when serving the food in plate ?6. The meal portions include a specific number of forks of meat and salad. You always eat the meat portion but you can replace up to half of salad/vegetables portion with rice, potatoes or pasta, or a fruit ?if you like. The less you do it the better weight loss will be. ?7. One full-size fork is what it can be scooped on the fork without falling aside and not what can be bit with the fork. Use regular forks like those you find in a typical restaurant. ?8.? Please buy the body composition scale we discussed and send me weight measurements as soon as possible and then once a week. Always include your diet and exercise plan. 9. The best choice would be to purchase a stationary bike, elliptical or treadmill at home that can track calories. Let me know if you do so I can give you an exercise plan. ?10.?It is important of avoiding and for at least 18 months postoperatively and has been discussed at the infosession. ?11. Goal is to lose at least 1.5-2lbs per week ?12. Goal to lose 10% of your weight before surgery, which is about 37lbs. Ultimate weight goal: 320lbs before surgery 13. Please follow the diet plan exactly without any change. If you don't like something about the plan or you feel hungry you need to communicate with me so I can help you revise the plan. You should not change the plan yourself. 14. To be scheduled for EGD due to the history of GERD. The possibility of biopsies was discussed. Patient needs to avoid use of NSAIDs and aspirin for 1 week prior to EGD. You must be on liquids only the day before your endoscopy. Risks of perforation and bleeding was discussed with the patient. This will be an outpatient procedure with IV sedation. Orders: Orders Insulin Today E03.9 - Hypothyroidism, unspecified, E66.01 - Morbid (severe) obesity due to excess calories, E78.2 - Mixed hyperlipidemia, I10 - Essential (primary) hypertension Hemoglobin A1c Today E03.9 - Hypothyroidism, unspecified, E66.01 - Morbid (severe) obesity due to excess calories, E78.2 - Mixed hyperlipidemia, I10 - Essential (primary) hypertension H Pylori Breath Test Today E03.9 - Hypothyroidism, unspecified, E66.01 - Morbid (severe) obesity due to excess calories, E78.2 - Mixed hyperlipidemia, I10 - Essential (primary) hypertension Lipid Panel Today E03.9 - Hypothyroidism, unspecified, E66.01 - Morbid (severe) obesity due to excess calories, E78.2 - Mixed hyperlipidemia, I10 - Essential (primary) hypertension IRON PROFILE Today E03.9 - Hypothyroidism, unspecified, E66.01 - Morbid (severe) obesity due to excess calories, E78.2 - Mixed hyperlipidemia, I10 - Essential (primary) hypertension Vitamin A Today E03.9 - Hypothyroidism, unspecified, E66.01 - Morbid (severe) obesity due to excess calories, E78.2 - Mixed hyperlipidemia, I10 - Essential (primary) hypertension TSH reflex Free T4 Today E03.9 - Hypothyroidism, unspecified, E66.01 - Morbid (severe) obesity due to excess calories, E78.2 - Mixed hyperlipidemia, I10 - Essential (primary) hypertension Vitamin D 25-OH Total Today E03.9 - Hypothyroidism, unspecified, E66.01 - Morbid (severe) obesity due to excess calories, E78.2 - Mixed hyperlipidemia, I10 - Essential (primary) hypertension FL upper GI w air Today E03.9 - Hypothyroidism, unspecified, E66.01 - Morbid (severe) obesity due to excess calories, E78.2 - Mixed hyperlipidemia, I10 - Essential (primary) hypertension Complete Blood Count Auto Diff Today E03.9 - Hypothyroidism, unspecified, E66.01 - Morbid (severe) obesity due to excess calories, E78.2 - Mixed hyperlipidemia, I10 - Essential (primary) hypertension Comprehensive Met. Panel Today E03.9 - Hypothyroidism, unspecified, E66.01 - Morbid (severe) obesity due to excess calories, E78.2 - Mixed hyperlipidemia, I10 - Essential (primary) hypertension Vitamin B12 and Folate Today E03.9 - Hypothyroidism, unspecified, E66.01 - Morbid (severe) obesity due to excess calories, E78.2 - Mixed hyperlipidemia, I10 - Essential (primary) hypertension Zinc Today E03.9 - Hypothyroidism, unspecified, E66.01 - Morbid (severe) obesity due to excess calories, E78.2 - Mixed hyperlipidemia, I10 - Essential (primary) hypertension C Reactive Protein Today E03.9 - Hypothyroidism, unspecified, E66.01 - Morbid (severe) obesity due to excess calories, E78.2 - Mixed hyperlipidemia, I10 - Essential (primary) hypertension Vitamin B1 Today E03.9 - Hypothyroidism, unspecified, E66.01 - Morbid (severe) obesity due to excess calories, E78.2 - Mixed hyperlipidemia, I10 - Essential (primary) hypertension Ferritin Today E03.9 - Hypothyroidism, unspecified, E66.01 - Morbid (severe) obesity due to excess calories, E78.2 - Mixed hyperlipidemia, I10 - Essential (primary) hypertension US abdomen comp w elastography Today E03.9 - Hypothyroidism, unspecified, E66.01 - Morbid (severe) obesity due to excess calories, E78.2 - Mixed hyperlipidemia, I10 - Essential (primary) hypertension XR chest 2V Today E03.9 - Hypothyroidism, unspecified, E66.01 - Morbid (severe) obesity due to excess calories, E78.2 - Mixed hyperlipidemia, I10 - Essential (primary) hypertension ECG 12 lead EKG Today E03.9 - Hypothyroidism, unspecified, E66.01 - Morbid (severe) obesity due to excess calories, E78.2 - Mixed hyperlipidemia, I10 - Essential (primary) hypertension Referrals Behavioral Health Referral E03.9 - Hypothyroidism, unspecified, E66.01 - Morbid (severe) obesity due to excess calories, E78.2 - Mixed hyperlipidemia, I10 - Essential (primary) hypertension Nutrition/Dietitian Referral E03.9 - Hypothyroidism, unspecified, E66.01 - Morbid (severe) obesity due to excess calories, E78.2 - Mixed hyperlipidemia, I10 - Essential (primary) hypertension
[2024-09-10 10:42] VITALS: BMI 58.5
== END 2024-09-10 11:13 | disposition home or self-care (01) ==
LOC: HO.HBS 08:05
PROVIDERS: PCP Physician Assistant; Visit Provider Surgery
DX: E66.01 Morbid (severe) obesity due to excess calories (principal); E66.813 Obesity, class 3; Z68.43 Body mass index [BMI] 50.0-59.9, adult
CPT/HCPCS: 99204

== ENCOUNTER → 2024-09-10 08:05 | Outpatient (BNVA) | payer OTHER, SELFPAY | PROVIDERS: PCP Physician Assistant; Visit Provider Surgery ==

== ENCOUNTER 2024-09-12 10:01 | Outpatient (REF) | payer OTHER, SELFPAY ==
--- NOTE | ~2024-09-12 | XR_ITS ---
EXAMINATION: XR CHEST CLINICAL INFORMATION: E66.01 - Morbid (severe) obesity due to excess calories COMPARISON: 08/07/2024. TECHNIQUE: 2 views of the chest were obtained. FINDINGS: The cardiac, hilar, and mediastinal contours are normal. The lungs are clear bilaterally. There is no pneumothorax or pleural effusion. There is no focal osseous or soft tissue abnormality. XR/XR chest 2V IMPRESSION: Normal chest. Electronically signed by: Peter Beavers MD 09/12/2024 04:26 PM [facility]
--- NOTE | 2024-09-12 10:07 | ECG_ITS ---
Test Reason : mor obs Blood Pressure : */* mmHG Vent. Rate : 80 BPM Atrial Rate : 80 BPM P-R Int : 188 ms QRS Dur : 98 ms QT Int : 378 ms P-R-T Axes : 64 30 30 degrees QTcB Int : 435 ms Normal sinus rhythm Normal ECG When compared with ECG of 17-Mar-2020 14:30, Nonspecific T wave abnormality, improved in Anterolateral leads Referred By: Tyson Mackay Electronically Signed By: RICHELLE FRIED
[2024-09-12 10:25] LABS: MANUAL DIFF FLAG NO
[2024-09-12 11:37] LABS: Basophils Absolute Auto 0.1 X10*3/uL (0.0-0.2); Basophils Percent Auto 0.6 % (0-2); Eosinophils Absolute Auto 0.3 X10*3/uL (0.0-0.4); Eosinophils Percent Auto 2.8 % (0-4); Hemoglobin 11.5 g/dl (12.0-16.0); Imm Gran Abs Auto 0.04 X10*3/uL (0.00-0.03); Imm Gran Pct Auto 0.4 % (0.0-0.4); Lymphocytes Absolute Auto 2.2 X10*3/uL (1.2-4.9); Lymphocytes Percent Auto 22.5 % (20-40); Mean Corpuscular HGB Conc 30.3 g/dl (31.0-35.0); Mean Corpuscular Hemoglobin 23.5 pg (27.0-33.0); Mean Corpuscular Volume 77.7 fL (80.0-98.0); Mean Platelet Volume 11.4 fL (9.4-12.3); Monocytes Absolute Auto 0.6 X10*3/uL (0.1-1.2); Monocytes Percent Auto 6.3 % (2-11); Neutrophils Absolute Auto 6.7 x10*3/uL (2.0-8.3); Neutrophils Percent Auto 67.4 % (45-73); Platelet Count 224 X10*3/uL (160-400); Red Blood Count 4.89 X10*6/uL (4.20-5.50); Red Cell Distribution Width 17.7 % (11.0-16.0); White Blood Count 9.9 X10*3/uL (4.8-10.8)
[2024-09-12 11:44] LABS: Estimated Average Glucose 123 mg/dL; Hemoglobin A1c % 5.9 % (<6.0); Total Hemoglobin (HGBA1C) 3046.5748 umol/L
[2024-09-12 12:32] LABS: Alanine Aminotransferase 31 U/L (0-31); Albumin Level 3.7 g/dL (3.5-5.0); Alkaline Phosphatase 98 U/L (39-117); Anion Gap 11 (12-20); Aspartate Amino Transferase 25 U/L (5-31); Bilirubin Total 0.3 mg/dL (0.0-1.0); Blood Urea Nitrogen 16 mg/dL (9-16); C Reactive Protein 1.11 mg/dL (< or = 0.50); Calcium 8.9 mg/dL (8.4-10.2); Carbon Dioxide 26 mmol/L (22-29); Chloride 105 mmol/L (96-108); Cholesterol 150 mg/dL (<200); Estimated Glomerular Filt Rate > 60; Glucose Random 107 mg/dL (60-115); HDL Cholesterol 45 mg/dL (>40); Iron 23 mcg/dL (30-160); LDL Cholesterol Calculated 90 mg/dL (<100); Percent Iron Saturation 7 % (15-50); Potassium 4.1 mmol/L (3.3-5.1); Sodium 138 mmol/L (135-145); Total Iron Binding Capacity 315 mcg/dL (228-428); Total Protein 7.2 g/dL (6.5-8.0); Triglycerides 75 mg/dL (<150); Unsaturated Iron Binding 292 ug/dL
[2024-09-12 12:40] LABS: Ferritin 8 ng/mL (10-250)
[2024-09-12 12:45] LABS: Folate 5.6 ng/mL (> or = 4.0); Vitamin B12 238 pg/mL (200-900)
[2024-09-12 13:13] LABS: Insulin 22 uU/mL (2-29)
[2024-09-16 12:08] LABS: Zinc 60 mcg/dL (60-130)
[2024-09-16 18:33] LABS: Vitamin A 41 mcg/dL (38-98)
[2024-09-18 14:44] LABS: Vitamin B1 8 nmol/L (8-30)
== END 2024-09-12 10:02 | disposition home or self-care (01) ==
LOC: HO.LAB 10:01
PROVIDERS: PCP Physician Assistant; Visit Provider Surgery
DX: E66.01 Morbid (severe) obesity due to excess calories (principal); E03.9 Hypothyroidism, unspecified; E78.2 Mixed hyperlipidemia; I10 Essential (primary) hypertension
CPT/HCPCS: 36415; 71046; 80053; 80061; 82306; 82607; 82728; 82746; 83036; 83525; 83540; 84425; 84443; 84590; 84630; 85025; 86140; 93005

== ENCOUNTER → 2024-09-12 10:07 | Outpatient (BNV) | payer OTHER, SELFPAY | PROVIDERS: PCP Physician Assistant; Visit Provider Internal Medicine | DX: E66.01 Morbid (severe) obesity due to excess calories (principal) | CPT/HCPCS: 93010 ==

== ENCOUNTER → 2024-09-12 10:33 | Outpatient (BNV) | payer OTHER, SELFPAY | PROVIDERS: PCP Physician Assistant; Visit Provider Radiology Diagnostic Radiology | DX: E66.01 Morbid (severe) obesity due to excess calories (principal); Z01.818 Encounter for other preprocedural examination | CPT/HCPCS: 71046 ==

== ENCOUNTER 2024-09-16 09:47 | Outpatient (RCR) | payer OTHER, SELFPAY ==
--- NOTE | 2024-07-10 16:22 | MHC.PT.EP ---
[facility] [place] [facility] [place] [facility] [place] [facility] [address] [place]ada [address] [phone] F: [phone] F: [phone] F: [phone] F: [phone] Physical Therapy Plan of Care Date of Evaluation: 07/10/24 Date of Surgery: Diagnosis: patellofemoral syndrome B knees. Assessment: Pt is a 43 y/o female with Hx of hypothyroidism, anxiety, lymphedema who is referred to PT for eval and treat of B knee PF syndrome which is resulting in decreased tolerance for sitting for duration, static standing, squatting and heavy HH chores, negotiating stairs and curbs as well as disturbed sleep secondary to decreased B knee and hip strength, mild gait abnormalities, mild TTP R joint line, Hx of agoraphobia which contributes to her sedentary lifestyle. Pt is deemed an appropriate candidate to receive skilled PT services to address their physical impairments in order to improve their functional ability. Frequency and Duration: The patient will be seen 1 x / wk x 6 wks. Short Term Goals: Initiate home program. Pt will improve baseline pain to < 3-4-/10; initial: 4-6/10. Porcelain Mixer Goals: I with home program. Pt will improve LEFI outcome measure by at least 9 points. Pt will improve B knee extension strength by at least 1/2 MMT strength. Pt will improve B hip abd strength by at least 1/2 MMT grade. Pt will report able to walk 2 blocks with at most moderate difficulty; initial: extreme difficulty or unable to perform. Treatment Plan: Modalities to reduce pain, spasms and effusion. Manual therapy to restore motion and function. Therapeutic exercise to improve strength and flexibility. Neuromuscular re-education for posture and balance. Therapeutic activities to return to functional activities of daily living. Electronically signed by: Vivek Yang PT. Please sign and return to therapist. Thank you for your referral.
--- NOTE | 2024-09-16 12:42 | MHC.PT.DC ---
[facility] [place] Office [place] Office [place] Office [address] [facility] [phone] F: [phone] F: [phone] F: [phone] F: [phone] Physical Therapy Discharge Report Diagnosis: patellofemoral syndrome B knees. Date of Surgery: Date of Evaluation: 07/10/24 Date of Discharge: 09/16/24 Treatments to Date: 12 Cancellations to Date: 1 No Shows to Date: Discharge Status: Improved Function Independent with HEP Discharge Summary: Gabby has been an active and motivated participant in her therapy in and out of the clinic, she has med many of her therapeutic goals, has become I with her home program, and though persists with knee pain has improved her function. Electronically signed by: Vivek Yang PT. Please sign and return to therapist. Thank you for your referral.
== END 2024-09-16 12:42 | disposition home or self-care (01) ==
LOC: HO.PT 09:47
PROVIDERS: PCP Physician Assistant; Visit Provider Physician Assistant
DX: M22.2X1 Patellofemoral disorders, right knee (principal); M22.2X2 Patellofemoral disorders, left knee
CPT/HCPCS: 97110; 97161; 97530

== ENCOUNTER → 2024-10-08 10:09 | Outpatient (AMB) | payer OTHER, SELFPAY ==
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
--- OUTSIDE RECORDS SUMMARY | 2024-10-08 11:46 | XMS_ITS | Clinical Summary ---
Author Organization 175 [facility] Address 175 [place] [address] Phone Care Team Providers Care Detail Supervisor Name Role Phone Hima Mccloud Primary Care Provider Social History Tobacco Use Types Packs/Day Years Used Date Smoking Tobacco: Never Assessed Comments Unknown Sex and Gender Information Value Date Recorded Sex Assigned at Not on file Legal Sex Female 1:34 PM EDT Gender Identity Not on file Sexual Orientation Not on file Plan of Treatment Upcoming Encounters Date Type Department Care Team (Late st Contact Info) Description 11/24/2024 10:45 AM EDT Consult Orthopedic Surgery - [place] [address] [address] Kolby Blankenship, DPM [address] [address] Health Maintenance Due Date Last Done Comments Breast Cancer Screening 1981 DTaP,Tdap,and Td Vaccines (1 - Tdap) 2000 Hepatitis B Vaccines (1 of 3 - 19+ 3-dose series) 2000 Cervical Cancer Screening: P ap Smear 2002 COVID-19 Vaccine ( - 2023-2 5 season) 2024 Influenza Vaccine (#1) 2024 Depression Screening 09/29/2024 HIV Screening 09/29/2024 Hepatitis C Screening 09/29/2024 Social Influencers of Health Screening 09/29/2024 HIB Vaccines Aged Out No longer eligi ble based on patient's age to complete this topic HPV Vaccines Aged Out No longer eligi ble based on patient's age to complete this topic Hepatitis A Vaccines Aged Out No long er eligible based on patient's age to complete this topic IPV Vaccines Aged Out No longer eligi ble based on patient's age to complete this topic MMR Vaccines Aged Out No longer eligi ble based on patient's age to complete this topic Meningococcal ACWY Vaccine Aged Out N o longer eligible based on patient's age to complete this topic Meningococcal B Vacine Aged Out No lo nger eligible based on patient's age to complete this topic Pneumococcal Vaccine: Pediat rics (0 to 5 Years) and At-Risk Patients (6 to 64 Years) Aged Out No longer eligible b ased on patient's age to complete this topic RSV Immunization Patients Un johnna 20 months Aged Out No longer eligible b ased on patient's age to complete this topic Varicella Vaccines Aged Out No longer eligible based on patient's age to complete this topic Insurance [facility] Care Teams Detail Supervisor Relationship Specialty Start Date End Date Hima Mccloud PA [address] [place] [phone] PCP - General Physician Joint Special Operations 09/29/24
== END ==
PROVIDERS: PCP Physician Assistant; Visit Provider Counselor Mental Health
DX: F43.9 Reaction to severe stress, unspecified (principal); F32.A Depression, unspecified
CPT/HCPCS: 90791

== ENCOUNTER 2024-10-10 08:44 | Outpatient (REF) | payer OTHER, SELFPAY ==
--- NOTE | 2024-10-10 08:52 | PFT_ITS ---
Flows: FEV1: 102 % of predicted at 3.11 L FVC: 110 % of predicted at 4.14 L FEV1/FVC: 75 % Bronchodilator response: Absent Volumes: Total lung capacity: 110 % of predicted at 5.96 L Residual volume: 135 % of predicted at 1.88 L Slow vital capacity: 102 % of predicted at 4.08 L Expiratory reserve volume: 94 % of predicted at 1.16 L Diffusion capacity: Normal Impression: Obstructive or restrictive ventilatory defect. No bronchodilator response. Increased residual volume suggests air trapping. MTDD
--- OUTSIDE RECORDS SUMMARY | 2024-10-10 09:02 | XMS_ITS | Clinical Summary ---
Author Organization 175 [facility] Address [address] [place] [address] Phone Care Team Providers Care Coal Washer Name Role Phone Hima Mccloud Primary Care [...] 10:45 AM EDT Consult Orthopedic Surgery - [place] [address] [address] Kolby Blankenship, DPM [address] [address] Health Maintenance Due Date Last Done Comments [...] patient's age to complete this topic Insurance [facility] Care Teams Coal Washer Relationship Specialty Start Date End Date Hima Mccloud PA [address] [place] [phone] PCP - General Physician Instrument Repair Supervisor 09/29/24
[2024-10-10 09:34] VITALS: PULSE 100; O2SAT 97
== END 2024-10-10 08:45 | disposition home or self-care (01) ==
LOC: HO.RESP 08:44
PROVIDERS: PCP Physician Assistant; Visit Provider Physician Assistant
DX: J45.20 Mild intermittent asthma, uncomplicated (principal)
CPT/HCPCS: 94010; 94640; 94727; 94729

== ENCOUNTER → 2024-10-10 08:52 | Outpatient (BNV) | payer OTHER, SELFPAY | PROVIDERS: PCP Physician Assistant; Visit Provider Internal Medicine Pulmonary Disease | DX: J45.909 Unspecified asthma, uncomplicated (principal) | CPT/HCPCS: 94060; 94727; 94729 ==

== ENCOUNTER 2024-10-10 12:02 | Day surgery (SDC) | payer OTHER, SELFPAY ==
[2024-09-29 10:51] VITALS: BMI 58.5
[2024-10-08 11:00] VITALS: BMI 58.5
--- NOTE | 2024-10-08 15:05 | P.CONAN_ITS ---
Documented by User: Nyasia Galan NP 10/08/24 15:06 HPI - Anesthesia Eval Consult details Narrative: 44yo F for Upper Endoscopy Anesthesia Pre-Procedure Meds Is the patient on any of the following meds?: GLP1/DPP4 PMFSH Active Problems Active Problems: All Active Problems Morbid obesity (Acute) Left foot pain (Acute) Calcaneal spur, left foot (Acute) Right ankle pain (Acute) Class 3 obesity (Acute) Constipation (Acute) Cervical spine pain (Acute) Thoracic spine pain (Acute) Left ankle pain (Acute) Lumbar spine pain (Acute) Left elbow pain (Acute) Cough (Acute) HTN (hypertension) (Acute) Patellofemoral disorder of both knees (Acute) Impaired glucose metabolism (Acute) Bilateral knee pain (Acute) Breast cancer screening (Acute) STEVEN (generalized anxiety disorder) (Acute) MDD (major depressive disorder), recurrent episode, moderate (Acute) Annual physical exam (Acute) Elevated fasting blood sugar (Acute) Tobacco dependence (Acute) Agoraphobia (Acute) HLD (hyperlipidemia) (Acute) Asthma (Acute) Goiter (Acute) Vitamin D deficiency (Acute) Hypothyroidism (Acute) Influenza vaccine needed (Acute) Lymphedema (Acute) Morbid obesity due to excess calories (Acute) Smoking (Acute) Past Medical History Medical History (Updated 10/10/24 @ 13:11 by Autumn Major RN) Anemia Asthma Elevated cholesterol HTN (hypertension) Morbid obesity Lymphedema Hypothyroidism Family History Family History Father No problems noted. Mother Hypertension Hypothyroidism Maternal Grandmother Lung cancer Maternal Grandfather Colon cancer Maternal Uncle Bone cancer Surgical History Surgical History No pertinent past surgical history Social History Social History (Updated 08/27/24 @ 08:39 by Radha Leonard CMA) Housing: Apartment Alcohol intake: current Alcohol intake frequency: holidays/special occasions only Patient Tobacco Use Status: Current everyday Tobacco user Tobacco use type: Cigarette Cigarette Packs Per Day: 1 Cigarettes Per Day: 20 e-Cigarette/Vaping Use: Never Used Second Hand Smoke Exposure: No Substance Use Type: Marijuana service: No Current occupational status: unemployed Cognitive needs: No Hearing needs: No Vision needs: Yes (glasses) Meds Allergies Allergy/AdvReac Type Severity Reaction Status Date / Time dog dander [DOG] Allergy Unknown SNEEZING/IT Verified 10/10/24 13:12 CLAU pollen extracts [POLLEN] Allergy Unknown SNEEZING, Verified 10/10/24 13:12 ITCHY Exam Height,Weight and Vital Signs: Height 5 ft 5.5 in Weight 162.023 kg Narrative Narrative: EKG 08/2024 Vent. Rate : 80 BPM Atrial Rate : 80 BPM P-R Int : 188 ms QRS Dur : 98 ms QT Int : 378 ms P-R-T Axes : 64 30 30 degrees QTcB Int : 435 ms Normal sinus rhythm Normal ECG When compared with ECG of 17-Mar-2020 14:30, Nonspecific T wave abnormality, improved in Anterolateral leads Assessment and Plan Assessment Anesthesia Assessment: Chart Reviewed Documented by User: Cricket Vigil MD 10/10/24 14:03 [facility] Past Medical History Medical History (Updated 10/10/24 @ 13:11 by Autumn Major RN) Anemia Asthma Elevated cholesterol HTN (hypertension) Morbid obesity Lymphedema Hypothyroidism Patient : No Family History Family History Father No problems noted. Mother Hypertension Hypothyroidism Maternal Grandmother Lung cancer Maternal Grandfather Colon cancer Maternal Uncle Bone cancer Family history of problems with anesthesia: No Surgical History Surgical History No pertinent past surgical history History of Problems with Anesthesia: No Social History Social History (Updated 08/27/24 @ 08:39 by Radha Leonard CMA) Housing: Apartment Alcohol intake: current Alcohol intake frequency: holidays/special occasions only Patient Tobacco Use Status: Current everyday Tobacco user Tobacco use type: Cigarette Cigarette Packs Per Day: 1 Cigarettes Per Day: 20 e-Cigarette/Vaping Use: Never Used Second Hand Smoke Exposure: No Substance Use Type: Marijuana service: No Current occupational status: unemployed Cognitive needs: No Hearing needs: No Vision needs: Yes (glasses) Meds Allergies Allergy/AdvReac Type Severity Reaction Status Date / Time dog dander [DOG] Allergy Unknown SNEEZING/IT Verified 10/10/24 13:12 CLAU pollen extracts [POLLEN] Allergy Unknown SNEEZING, Verified 10/10/24 13:12 ITCHY Exam Airway Mallampati Class: I TM Dist: <=3cm Neck ROM: Full Loose/Missing/Broken Teeth: Yes, Upper and Lower Heart: ok. Lungs: ok. Sat 96% on ra. Assessment and Plan Assessment Anesthesia Assessment: Anesthesia Plan Discussed Final Anesthetic Review Family History of Problems with Anesthesia: No History of Problems with Anesthesia: No NPO: Yes ASA Class: III Final Preanesthetic Review: No Changes in Pt Med Stat, Meds/Allgs Chart Reviewed, Consent Obtained/Reviewed and Anes Risks/Benef Reviewed Patient Risk: High Procedure Risk: Intermediate Anesthetic Plan Anesthetic Plan: Agree w/ Assess. and Plan and TIVA Disposition: Standard PACU
[2024-10-10 13:15] LABS: UPreg QC Valid YES; Urine Pregnancy NEGATIVE (NEGATIVE)
[2024-10-10 13:18] VITALS: BMI 57.4
[2024-10-10 13:30] VITALS: BP 137/79; PULSE 90; RESP 16; TEMP 36.5; O2SAT 96
[2024-10-10] MEDS: Lactated Ringers 1,000 ML 100 ML IVCONT (13:41)
--- NOTE | 2024-10-10 13:50 | MHC.SHP ---
Pre-Procedural Eval Section A - 24 Hr Update-Section A only Date of Service: 10/10/24 The patient is an INPATIENT: No The patient has been examined within 24 hours of the surgical procedure. The History & Physical has been completed within 30 days and I have reviewed it.: Yes Section B - Complete if H&P > 30 days Chief Complaint: Morbid (severe) obesity due to excess calories Relevant Family History (Specify if Yes): No Relevant Social History: None Present Medications: None Medical History: No relevant PMH History of Previous Operations: No relevant previous surgery Allergies: Allergies Allergy/AdvReac Type Severity Reaction Status Date / Time dog dander [DOG] Allergy Unknown SNEEZING/IT Verified 10/10/24 13:12 CLAU pollen extracts [POLLEN] Allergy Unknown SNEEZING, Verified 10/10/24 13:12 ITCHY Review of Systems Sugical H&P ROS: Negative: Constitution, Cardiovascular, Respiratory, Neurological, Psychiatric, Hem-Onc, Allergic/Immunologic, Gastrointestinal, Genitourinary, Musculoskeletal, Integumentary, Endocrine and Eyes/Ears/Nose/Throat Exam Surgical H&P Exam: Normal: HEENT, Normal: Heart, Normal: Lungs, Normal: Extremities, Normal: Abdomen, Normal: Skin and Normal: Neurological Plan Diagnosis/Plan: Unchanged ( EGD to assess the stomach's anatomy. Risks of bleeding and perforation were discussed with the patient and she is in agreement with the plan.) I have reviewed the history and physical and performed a pertinent physical examination on my patient. No changes have occurred unless specified. Time Spent With Patient Time: Total time managing care of this patient today ____ minutes.
--- NOTE | 2024-10-10 13:53 | P.BOP_ITS ---
Brief Operative Note Date of Service: 10/10/24 Pre-op diagnosis: Morbid obesity Post-op diagnosis: same Procedure: PROCEDURE DATE: 10/10/2024 PREOPERATIVE DIAGNOSIS: Morbid obesity POSTOPERATIVE DIAGNOSIS: ?Same as above. Normal PROCEDURE: [id number] with biopsies Surgeon: ?Darrin Mackay M.D.. Ph.D. Corporate Compliance Manager: None ? Anesthesia: IV sedation Estimated blood loss: ?Minimal FINDINGS AND PROCEDURE: ? OPERATIVE INDICATIONS: ?The patient is a 44 year old female known to me who is interested in bariatric surgery. Based on this information I recommended an upper endoscopy to evaluate the stomach's anatomy. Risks and complications of the surgery were discussed with the patient in advance particularly the possibility of perforation or bleeding that may require surgical intervention. The patient understood the risks and was in agreement with the plan. ? PROCEDURE: After informed consent was obtained by the patient, the patient was ?transferred to the Operating Room and was placed in the supine position.? After successful induction of IV sedation, a mouth block was inserted and the patient was placed in the left lateral decubitus position. An upper endoscopy was performed next, the oropharynx and esophagus appeared within the normal limits. There was no hiatal hernia. The z-line was smooth. Two biopsies were obtained from the distal esophagus 2-3 cm proximal to the GE ez ction and two additional biopsies from the GE junction. The stomach was entered and it appeared to be of normal size. There was no gastritis. There was no stricture or ulcer. A biopsy was obtained from the gastric fundus and the antrum. No significant bleeding was noted from any of the biopsy sites. Retroflexion of the scope confirmed a normal GE junction. The scope was then advanced into the duodenum which appeared to be normal as well. At that point the duodenum ?and the stomach were decompressed and the scope was withdrawn from the patient's mouth. The patient extubated and was transferred in stable condition to the Recovery Room for further care. I was present and performed all steps of the procedure. There were no residents to assist with this case. Darrin Mackay M.D., Ph.D. Surgeon: Tyson Mackay MD Anesthesia: MAC Was an Corporate Compliance Manager used for this Procedure?: No Estimated blood loss (mL): 0 IV fluids (mL): 400 Urine output (mL): 0 (No Botello to record output) Pathology: other (1) antrum x1, 2) fundus x1, 3) GE junction x2, 4) distal esophagus x2) Condition: stable Disposition: PACU
[2024-10-10 14:40] VITALS: BP 133/68; PULSE 128; RESP 26; TEMP 36.1; O2SAT 93
[2024-10-10 14:55] VITALS: BP 102/56; PULSE 96; RESP 20; O2SAT 91
[2024-10-10 15:10] VITALS: BP 119/67; PULSE 91; RESP 20; O2SAT 93
[2024-10-10 15:25] VITALS: BP 117/69; PULSE 100; RESP 18; O2SAT 95
[2024-10-10 15:40] VITALS: BP 115/73; PULSE 95; RESP 16; TEMP 36.1; O2SAT 95
== END 2024-10-10 15:56 | disposition home or self-care (01) ==
PROVIDERS: Nurse Practitioner; PCP Physician Assistant; Visit Provider Surgery
PROC: 0DJ08ZZ Inspection of Upper Intestinal Tract, Via Natural or Artificial Opening Endoscopic (ICD-10-PCS; CPT 43235; principal; 2024-10-10 14:00)
DX: E66.01 Morbid (severe) obesity due to excess calories (principal); Z68.43 Body mass index [BMI] 50.0-59.9, adult; I10 Essential (primary) hypertension; I89.0 Lymphedema, not elsewhere classified; E78.2 Mixed hyperlipidemia; E03.9 Hypothyroidism, unspecified; D64.9 Anemia, unspecified; J45.909 Unspecified asthma, uncomplicated; Z79.51 Long term (current) use of inhaled steroids; Z79.899 Other long term (current) drug therapy; F17.210 Nicotine dependence, cigarettes, uncomplicated; Z56.0 Unemployment, unspecified
CPT/HCPCS: 43239; 81025; 88305; 88313; 88342; J2003; J2704; J3010

== ENCOUNTER → 2024-10-10 12:02 | Outpatient (BNV) | payer OTHER, SELFPAY | PROVIDERS: PCP Physician Assistant; Visit Provider Surgery | DX: E66.813 Obesity, class 3 (principal); Z68.42 Body mass index [BMI] 45.0-49.9, adult | CPT/HCPCS: 43239 ==

== ENCOUNTER 2024-10-15 08:46 | Outpatient (REF) | payer OTHER, SELFPAY ==
--- NOTE | ~2024-10-15 | US_ITS ---
EXAMINATION: US ABDOMEN COMPLETE WITH LIVER ELASTOGRAPHY HISTORY: E66.01 - Morbid (severe) obesity due to excess calories TECHNIQUE: Real-time grayscale ultrasound imaging of the abdomen was performed and images were reviewed. COMPARISON: There are no prior studies for comparison. FINDINGS: Liver: The right lobe of the liver measures 21.4 cm in size. The left lobe of the liver measures 14.0 cm in size. The liver demonstrates increased echotexture, consistent with steatosis. No focal mass or intrahepatic biliary ductal dilatation is identified. There is normal hepatopedal flow in the portal vein. Ultrasound elastography of the liver was performed with 10 separate measurements of the liver parenchyma with the patient in the supine position. Measurements were obtained approximately 2 cm below Jason's capsule and perpendicular to the capsule. Images are of satisfactory quality. The median shear wave velocity is 1.25 m/s. The interquartile range/median (IQR/median) is 0.12. Gallbladder and biliary tree: The gallbladder is unremarkable, without evidence of calculi, wall thickening, or pericholecystic fluid. There is no sonographic Yancey sign. The common bile duct is normal in caliber measuring 5 mm. Kidneys: The right kidney measures 11.4 cm in length. The left kidney measures 12.8 cm in length. The kidneys are unremarkable, without evidence of masses, hydronephrosis, or calculi. Pancreas: The pancreatic head, neck, and body are unremarkable. The pancreatic tail is obscured by bowel gas. Spleen: The spleen is normal in size and contour, measuring 10.8 cm in length. Abdominal aorta and inferior vena cava: The visualized portions of the abdominal aorta and inferior vena cava are normal in caliber. There is no free fluid in the abdomen. US/US abdomen comp w elastography IMPRESSION: Hepatomegaly and hepatic steatosis. The median shear wave velocity in the liver is 1.25 m/s, corresponding to a median liver stiffness of 4.78 kPa. The IQR/median value is 0.12. This is indicative of a quality data set. Findings are indicative of a normal elastography value with a low likelihood of severe fibrosis or cirrhosis. REFERENCE: Society of Radiologists in Ultrasound Liver Stiffness Thresholds (2020): LIVER STIFFNESS THRESHOLDS: *Shear wave velocity less than 1.3 m/s (Liver Stiffness equal or less than 5 kPa): High probability of being normal. *Shear wave velocity less than 1.7 m/s (Liver Stiffness less than 9 kPa): In the absence of other known clinical signs, rules out compensated advanced chronic liver disease. *Shear wave velocity between 1.7-2.1 m/s (Liver Stiffness 9-13 kPa): Suggestive of compensated advanced chronic liver disease but need further test for confirmation. *Shear wave velocity between 2.1-2.4 m/s (Liver Stiffness 13-17 kPa): Rules in compensated advanced chronic liver disease. *Shear wave velocity greater than 2.4 m/s (Liver Stiffness over 17 kPa): Suggestive of clinically significant portal hypertension. QUALITY OF DATA SET: *IQR/Median value equal or less than 0.15 implies a quality data set. *IQR/Median value over 0.15 implies a poor quality data set. SIGNIFICANT CHANGE FROM PRIOR EXAM: Significant change if liver stiffness measurement is 10% or greater from prior exam. OTHER CONSIDERATIONS: The stage of liver fibrosis may be overestimated in the setting of acute hepatitis, liver inflammation, elevated liver function tests, hepatic vascular congestion, obstructive cholestasis, non-fasting state, and infiltrative diseases such as amyloidosis and lymphoma. In some patients with NAFLD, the liver stiffness thresholds for compensated advanced chronic liver disease may be lower. In causes other than viral hepatitis and NAFLD, liver stiffness thresholds are not well established. Electronically signed by: Ryan Mtz MD 10/15/2024 10:40 AM EDT
--- OUTSIDE RECORDS SUMMARY | 2024-10-15 09:25 | XMS_ITS | Clinical Summary ---
Author Organization 175 [facility] Address [address] [place] [address] Phone Care Team Providers Care Cement Truck Loader Name Role Phone Hima Mccloud Primary Care [...] 10:45 AM EDT Consult Orthopedic Surgery - [place] [address] [address] Kolby Blankenship, DPM [address] [address] Health Maintenance Due Date Last Done Comments [...] patient's age to complete this topic Insurance [facility] Care Teams Cement Truck Loader Relationship Specialty Start Date End Date Hima Mccloud PA [address] [place] [phone] PCP - General Physician Protohistorian 09/29/24
== END 2024-10-15 08:47 | disposition home or self-care (01) ==
LOC: HO.US 08:46
PROVIDERS: PCP Physician Assistant; Visit Provider Surgery
DX: E03.9 Hypothyroidism, unspecified (principal); E66.01 Morbid (severe) obesity due to excess calories; E78.2 Mixed hyperlipidemia; I10 Essential (primary) hypertension
CPT/HCPCS: 76700; 76981

== ENCOUNTER → 2024-10-15 08:49 | Outpatient (BNV) | payer OTHER, SELFPAY | PROVIDERS: PCP Physician Assistant; Visit Provider Radiology Diagnostic Radiology | DX: R16.0 Hepatomegaly, not elsewhere classified (principal); K76.0 Fatty (change of) liver, not elsewhere classified | CPT/HCPCS: 76700; 76981 ==

== ENCOUNTER 2024-11-07 08:19 | Outpatient (AMB) | payer OTHER, SELFPAY ==
--- NOTE | 2024-11-07 08:30 | MHC.OFFVIS ---
Intake Visit Reasons: OV-B/L knee pain mild arthritis-F/U due to pain Intake Note: Gabby is a 44 year old female who presents today for a follow up of bilateral knee OA, last injection on 02/13/24. Patient reports she did find relief with these injections for roughly 2 months. She says she started a weight program and she has been becoming more active doing exercises such as biking and ambulation so she would like to repeat injections to help her continue being active. Allergies dog dander [DOG] Allergy (Unknown, Verified 11/07/24 08:31) SNEEZING/ITCHY pollen extracts [POLLEN] Allergy (Unknown, Verified 11/07/24 08:31) SNEEZING, ITCHY Medication List - Last Reconciled 11/07/24 by Franco Newby PA-C albuterol sulfate 90 mcg/actuation 1 inh inhalation QID PRN 90 days fluticasone propion-salmeterol 115-21 mcg/actuation (Advair HFA) 2 puffs inhalation BID 30 days hydrochlorothiazide 12.5 mg PO DAILY 90 days levothyroxine 175 mcg PO DAILY 90 days polyethylene glycol 3350 (Miralax) 17 grams PO DAILY 30 days simvastatin 20 mg PO DAILY HPI HPI OV-B/L knee pain mild arthritis-F/U due to pain: Details: 44-year-old female returns to the office today for bilateral knee pain. She states the injection lasted for a few months and as she was doing physical therapy she was able to increase her activities and is working on weight loss. Over the last several months she has noticed worsening pain and limitations in activities which prompted her to return for potential injections. [facility] Medical History (Updated 10/15/24 @ 12:45 by Hima Mccloud PA-C) Anemia Asthma Elevated cholesterol HTN (hypertension) Morbid obesity Lymphedema Hypothyroidism Surgical History No pertinent past surgical history Family History Father No problems noted. Mother Hypertension Hypothyroidism Maternal Grandmother Lung cancer Maternal Grandfather Colon cancer Maternal Uncle Bone cancer Social History Housing: Apartment Alcohol intake: current Alcohol intake frequency: holidays/special occasions only Patient Tobacco Use Status: Current everyday Tobacco user Tobacco use type: Cigarette Cigarette Packs Per Day: 1 Cigarettes Per Day: 20 e-Cigarette/Vaping Use: Never Used Second Hand Smoke Exposure: No Substance Use Type: Marijuana service: No Current occupational status: unemployed Cognitive needs: No Hearing needs: No Vision needs: Yes (glasses) Review of Systems Const All systems reviewed & are unremarkable except as noted in HPI and below Physical Exam Const General: cooperative, healthy appearing, comfortable and no acute distress Orientation/consciousness: patient oriented x3 Neck Neck: Yes normal visual inspection and Yes no JVD Chest Chest palpation & inspection: normal inspection of the chest Resp Effort & Inspection: normal respiratory effort Auscultation: clear to auscultation bilaterally, crackles (no), rales (no), rhonchi (no) and wheezes (no) Cardio Jugular venous distension: no JVD Rate: regular rate Rhythm: regular rhythm Heart sounds: S1 normal heart sound present, S2 normal heart sound present, Murmur heart sound present (no) and Rub heart sound present (no) Neuro General: patient oriented x3 Extrem Other: Bilateral knee: Skin intact, no erythema or joint effusion. She has lateral retropatellar tenderness. Full ROM with crepitus. Negative Damion?s. No ligamentous laxity. NVI. General: Yes normal to inspection, Yes no pedal edema and Yes no calf tenderness Office Procedures AMB Joint Injection/Aspiration Joint Injection/Aspiration Primary Site: right knee Secondary Site: left knee Prep: site was prepped using aseptic technique, ethochloride spray was applied and injection warnings given Injected: 40 mg of, DepoMedrol, with 8 mL of, 1% plain lidocaine and in the joint Approach Used: anterolateral Procedure: The patient tolerated the procedure well and there was some relief with the local anesthesia Coding 33863 - Glenohumeral/Tronchanteric Bursa/Intraarticular Procedure code (CPT) selection complete Assessment & Plan Assessment & Plan (1) Patellofemoral disorder of both knees: Code(s): M22.2X1 - Patellofemoral disorders, right knee; M22.2X2 - Patellofemoral disorders, left knee Category: Medical Plan We discussed options today, which include steroid injection. The patient did consent to move forward with the bilateral knee steroid injection, which was tolerated well. I recommended rest, ice, and elevation and OTC anti-inflammatories as needed for discomfort. If symptoms persist over the next 6-8 weeks, they will contact the office, otherwise as needed. We also discussed their diabetes and the effect the steroid injection can have on their blood glucose levels; therefore, they will continue to monitor these very closely over the next 72 hours. If there are any concerns, they should report to the ED immediately. Coding Level of Care Code Est Pt Level 3 (37832) Complex EM visit Add On G2211 Diagnoses Patellofemoral disorder of both knees M22.2X1; M22.2X2 CPT Codes Coding - Joint 7: 30703 - Glenohumeral/Tronchanteric Bursa/Intraarticular ([id number])
--- OUTSIDE RECORDS SUMMARY | 2024-11-07 08:36 | XMS_ITS | Clinical Summary ---
Author Organization 175 [facility] Address 175 [place] [address] Phone Care Team Providers Care Ski Base Trimmer Name Role Phone Hima Mccloud Primary Care Provider Social History Tobacco Use Types Packs/Day Years Used Date Smoking Tobacco: Never Assessed Comments Unknown Sex and Gender Information Value Date Recorded Sex Assigned at Not on file Legal Sex Female 1:34 PM EDT Gender Identity Not on file Sexual Orientation Not on file Plan of Treatment Upcoming Encounters Date Type Department Care Team ([facility] st Contact Info) Description 11/24/2024 10:45 AM EDT Consult Orthopedic Surgery - [place] [address] [address] Kolby Blankenship, DPM [address] [address] Health Maintenance Due Date Last Done Comments Breast Cancer Screening 1981 DTaP,Tdap,and Td Vaccines (1 - Tdap) 2000 Hepatitis B Vaccines (1 of 3 - 19+ 3-dose series) 2000 Cervical Cancer Screening: P ap Smear 2002 COVID-19 Vaccine ( - 2023-2 5 season) 2024 Depression Screening 09/29/2024 HIV Screening 09/29/2024 Hepatitis C Screening 09/29/2024 Social Influencers of Health Screening 09/29/2024 Influenza Vaccine (Season Ended) 2025 HIB Vaccines Aged Out No longer eligi [...] age to complete this topic Meningococcal B Vaccine Aged Out No l onger eligible based on patient's age to complete [...] patient's age to complete this topic Insurance Care Teams Ski Base Trimmer Relationship Specialty Start Date End Date Hima Mccloud PA PCP - General Physician Roller Setter 09/29/24
== END 2024-11-07 10:23 | disposition home or self-care (01) ==
LOC: HO.HOS 08:19
PROVIDERS: PCP Physician Assistant; Visit Provider Physician Assistant
DX: M22.2X1 Patellofemoral disorders, right knee (principal); M22.2X2 Patellofemoral disorders, left knee
CPT/HCPCS: 20610; 99213

== ENCOUNTER → 2024-11-07 08:19 | Outpatient (BNVA) | payer OTHER, SELFPAY | PROVIDERS: PCP Physician Assistant; Visit Provider Physician Assistant | DX: M22.2X1 Patellofemoral disorders, right knee (principal); M22.2X2 Patellofemoral disorders, left knee | CPT/HCPCS: 20610; 99212; J1010; J2003 ==

== ENCOUNTER 2024-12-01 08:25 | Outpatient (REF) | payer OTHER, SELFPAY ==
--- NOTE | ~2024-12-01 | FL_ITS ---
EXAMINATION: XR FLUOROSCOPY UPPER GI WITH AIR CLINICAL INFORMATION: Moderate to severe obesity due to excess calories COMPARISON: Ultrasound abdomen 10/15/2024. TECHNIQUE: Routine upper GI air contrast study was performed in upright and lying position. FINDINGS: Following oral administration of thick barium in upright view there is normal propagation bolus from the oral cavity through the pharynx, esophagus into stomach without any evidence of obstruction, narrowing or stricture. On placing patient in supine and prone lying the course, caliber and peristalsis of the stomach, duodenal bulb and sweep is normal. The mucosal pattern of the stomach, duodenum is normal. FLUOROSCOPY TIME: 1 minute 31 seconds DOSE AREA PRODUCT: 266.7 uGy-m2 (microgray-meter squared) FL/FL upper GI w air IMPRESSION: Unremarkable upper GI air contrast study. Electronically signed by: Skip Smith MD 12/01/2024 02:03 PM EDT
--- OUTSIDE RECORDS SUMMARY | 2024-12-01 08:30 | XMS_ITS | Clinical Summary ---
Author Organization 175 [facility] Address [address] [place] [address] Phone Care Team Providers Care External Grinder Tender Name Role Phone Hima Mccloud Primary Care Provider Allergies Active Allergy Reactions Criticality Noted Date Comments Dog Dander 11/21/2024 Pollen Extracts 11/21/2024 Medications albuterol HFA (PROAIR HFA ; PROVENTIL HFA ; VENTOLIN HFA) 90 mcg/actuation inhaler Inhale 2 puffs by mouth every 6 (six) hours if needed for wheezing. Active levothyroxine (SYNTHROID, LEVOTHROID) 175 mcg tablet Take 1 tablet (175 mcg total) by mouth 1 (one) time each day before breakfast. Active mometasone (ASMANEX) 220 mcg/ actuation (14) inhaler Inhale 1 puff by mouth 1 (one) time each day in the evening. Rinse mouth with water after use to reduce aftertaste and incidence of candidiasis. Do not swallow. Active simvastatin (ZOCOR) 20 mg tablet Take 1 tablet (20 mg total) by mouth at bedtime. Active varenicline tartrate (CHANTIX) 0.5 mg tablet Take 1 tablet (0.5 mg total) by mouth 2 (two) times daily after breakfast and dinner. Take with full glass of water. Active varenicline tartrate (CHANTIX) 1 mg tablet Take 1 tablet (1 mg total) by mouth 2 (two) times daily after breakfast and dinner. Take with full glass of water. Active ammonium lactate (AmLactin) 12 % lotion Apply topically if needed for dry skin. 400 g 2 5 11/25/19 26 Active Encounters Date Type Department Care Team Description 11/24/2024 10:45 AM EDT Consult Orthopedic Surgery [facility] [address] [address] Kolby Blankenship DPM Pain in left foot (Primary Dx); Calcaneal spur, left foot; Metatarsalgia of right foot; Hammertoes of both feet; Dermatophytosis, nail from Last 3 Months Social History Tobacco Use Types Packs/Day Years Used Date Smoking Tobacco: Never Assessed Comments Unknown Sex and Gender Information Value Date Recorded Sex Assigned at Not on file Legal Sex Female 1:34 PM EDT Gender Identity Not on file Sexual Orientation Not on file Last Filed Vital Signs Vital Sign Reading Time Taken Comments Blood Pressure - - Pulse - - Temperature - - Respiratory Rate - - Oxygen Saturation - - Inhaled Oxygen Concentration - - Weight 167 kg (369 lb) 11/24/2024 10:53 AM EDT Height 175.3 cm (5' 9 ) 11/24/2024 10:53 AM EDT Body Mass Index 54.49 11/24/2024 10:53 AM EDT Plan of Treatment Upcoming Encounters Date Type Department Care Team (Late st Contact Info) Description 01/19/2025 10:00 AM EDT Office Visit Orthopedic Surgery [facility] [address] [address] Kolby Blankenship DPM [address] [address] Health Maintenance Due Date Last Done Comments [...] patient's age to complete this topic [place] [address] Care Teams External Grinder Tender Relationship Specialty Start Date End Date Hima Mccloud PA [address] [place] [address] PCP - General Physician Display Artist 09/29/24
== END 2024-12-01 08:26 | disposition home or self-care (01) ==
LOC: HO.XRAY 08:25
PROVIDERS: PCP Physician Assistant; Visit Provider Surgery
DX: E66.01 Morbid (severe) obesity due to excess calories (principal); E03.9 Hypothyroidism, unspecified; E78.2 Mixed hyperlipidemia; I10 Essential (primary) hypertension
CPT/HCPCS: 74246

== ENCOUNTER → 2024-12-01 08:26 | Outpatient (BNV) | payer OTHER, SELFPAY | PROVIDERS: PCP Physician Assistant; Visit Provider Radiology Diagnostic Radiology | DX: E66.01 Morbid (severe) obesity due to excess calories (principal) | CPT/HCPCS: 74246 ==

== ENCOUNTER 2024-12-10 08:47 | Outpatient (AMB) | payer OTHER, SELFPAY ==
--- NOTE | 2024-12-10 08:56 | A.OFFVIS_ITS ---
Intake Visit Reasons: INJ- b/l knee Euflexxa injection #1 Intake Note: Gabby is a 44 year old female who presents today for bilateral knee Euflexxa injection #1. Allergies dog dander [DOG] Allergy (Unknown, Verified 12/10/24 09:00) SNEEZING/ITCHY pollen extracts [POLLEN] Allergy (Unknown, Verified 12/10/24 09:00) SNEEZING, ITCHY HPI HPI INJ- b/l knee Euflexxa injection #1: Details: 44 year old female who presents today for bilateral knee Euflexxa injection #1. [facility] Medical History (Updated 10/15/24 @ 12:45 by Hima Mccloud PA-C) Anemia Asthma Elevated cholesterol HTN (hypertension) Morbid obesity Lymphedema Hypothyroidism Surgical History No pertinent past surgical history Family History Father No problems noted. Mother Hypertension Hypothyroidism Maternal Grandmother Lung cancer Maternal Grandfather Colon cancer Maternal Uncle Bone cancer Social History Housing: Apartment Alcohol intake: current Alcohol intake frequency: holidays/special occasions only Patient Tobacco Use Status: Current everyday Tobacco user Tobacco use type: Cigarette Cigarette Packs Per Day: 1 Cigarettes Per Day: 20 e-Cigarette/Vaping Use: Never Used Second Hand Smoke Exposure: No Substance Use Type: Marijuana service: No Current occupational status: unemployed Cognitive needs: No Hearing needs: No Vision needs: Yes (glasses) Review of Systems Const All systems reviewed & are unremarkable except as noted in HPI and below Physical Exam Const General: cooperative, healthy appearing, comfortable and no acute distress Orientation/consciousness: patient oriented x3 Neck Neck: Yes normal visual inspection and Yes no JVD Chest Chest palpation & inspection: normal inspection of the chest Resp Effort & Inspection: normal respiratory effort Auscultation: clear to auscultation bilaterally, crackles (no), rales (no), rhonchi (no) and wheezes (no) Cardio Jugular venous distension: no JVD Rate: regular rate Rhythm: regular rhythm Heart sounds: S1 normal heart sound present, S2 normal heart sound present, Murmur heart sound present (no) and Rub heart sound present (no) Neuro General: patient oriented x3 Extrem Other: Bilateral knee: Skin intact, no erythema or joint effusion. She has lateral retropatellar tenderness. Full ROM with crepitus. Negative Damion?s. No ligamentous laxity. NVI. General: Yes normal to inspection, Yes no pedal edema and Yes no calf tenderness Office Procedures AMB Joint Injection/Aspiration Joint Injection/Aspiration Details: #1 bilat knee euflexxa Primary Site: right knee Secondary Site: left knee Prep: site was prepped using aseptic technique, ethochloride spray was applied and injection warnings given Injected: in the joint Approach Used: anterolateral Procedure: The patient tolerated the procedure well Coding 66181 - Glenohumeral/Tronchanteric Bursa/Intraarticular Procedure code (CPT) selection complete Assessment & Plan Assessment & Plan (1) Patellofemoral disorder of both knees: Code(s): M22.2X1 - Patellofemoral disorders, right knee; M22.2X2 - Patellofemoral disorders, left knee Category: Medical Plan: Plan was to proceed with gel injection today. #1 Bilateral knee Euflexxa Injection performed today which the patient tolerated well. She will rest ice and use anti-inflammatories as needed for the next several days. I will see her back in 1 week for injection number 2 Coding Level of Care Code Procedure Only Diagnoses Patellofemoral disorder of both knees M22.2X1; M22.2X2 CPT Codes Coding - Joint 7: 94135 - Glenohumeral/Tronchanteric Bursa/Intraarticular ([id number])
--- OUTSIDE RECORDS SUMMARY | 2024-12-10 10:04 | XMS_ITS | Clinical Summary ---
Author Organization 175 [facility] Address [address] [place] [address] Phone Care Team Providers Care Outside Residential Sales Professional Name Role Phone Hima Mccloud Primary Care [...] 11/24/2024 10:45 AM EDT Consult Orthopedic Surgery [facility] [address] [address] Kolby Blankenship DPM Pain in left foot [...] 10:00 AM EDT Office Visit Orthopedic Surgery [facility] [address] [address] Kolyb Blankenship DPM [address] [address] Health Maintenance Due Date Last Done Comments [...] patient's age to complete this topic [place] [address] [place] [address] Care Teams Outside Residential Sales Professional Relationship Specialty Start Date End Date Hima Mccloud PA [address] [place] [address] PCP - General Physician Digital Strategy Manager 09/29/24
== END 2024-12-10 09:52 | disposition home or self-care (01) ==
LOC: HO.HOS 08:47
PROVIDERS: PCP Physician Assistant; Visit Provider Physician Assistant
DX: M22.2X1 Patellofemoral disorders, right knee (principal); M22.2X2 Patellofemoral disorders, left knee
CPT/HCPCS: 20610

== ENCOUNTER → 2024-12-10 08:47 | Outpatient (BNVA) | payer OTHER, SELFPAY | PROVIDERS: PCP Physician Assistant; Visit Provider Physician Assistant | DX: M22.2X1 Patellofemoral disorders, right knee (principal); M22.2X2 Patellofemoral disorders, left knee | CPT/HCPCS: 20610; J7323 ==

== ENCOUNTER 2024-12-17 08:46 | Outpatient (AMB) | payer OTHER, SELFPAY ==
--- NOTE | 2024-12-17 08:57 | A.OFFVIS_ITS ---
Intake Visit Reasons: INJ- b/l knee Euflexxa injection #2 Intake Note: Gabby is a 44 year old female who presents today for bilateral knee Euflexxa injection #2. Allergies dog dander [DOG] Allergy (Unknown, Verified 12/17/24 08:57) SNEEZING/ITCHY pollen extracts [POLLEN] Allergy (Unknown, Verified 12/17/24 08:57) SNEEZING, ITCHY HPI HPI INJ- b/l knee Euflexxa injection #2: Details: 44 year old female who presents today for bilateral knee Euflexxa injection #2. [facility] Medical History (Updated 10/15/24 @ 12:45 by Hima Mccloud PA-C) Anemia Asthma Elevated cholesterol HTN (hypertension) Morbid obesity Lymphedema Hypothyroidism Surgical History No pertinent past surgical history Family History Father No problems noted. Mother Hypertension Hypothyroidism Maternal Grandmother Lung cancer Maternal Grandfather Colon cancer Maternal Uncle Bone cancer Social History Housing: Apartment Alcohol intake: current Alcohol intake frequency: holidays/special occasions only Patient Tobacco Use Status: Current everyday Tobacco user Tobacco use type: Cigarette Cigarette Packs Per Day: 1 Cigarettes Per Day: 20 e-Cigarette/Vaping Use: Never Used Second Hand Smoke Exposure: No Substance Use Type: Marijuana service: No Current occupational status: unemployed Cognitive needs: No Hearing needs: No Vision needs: Yes (glasses) Review of Systems Const All systems reviewed & are unremarkable except as noted in HPI and below Physical Exam Const General: cooperative, healthy appearing, comfortable and no acute distress Orientation/consciousness: patient oriented x3 Neck Neck: Yes normal visual inspection and Yes no JVD Chest Chest palpation & inspection: normal inspection of the chest Resp Effort & Inspection: normal respiratory effort Auscultation: clear to auscultation bilaterally, crackles (no), rales (no), rhonchi (no) and wheezes (no) Cardio Jugular venous distension: no JVD Rate: regular rate Rhythm: regular rhythm Heart sounds: S1 normal heart sound present, S2 normal heart sound present, Murmur heart sound present (no) and Rub heart sound present (no) Neuro General: patient oriented x3 Extrem Other: Bilateral knee: Skin intact, no erythema or joint effusion. She has lateral retropatellar tenderness. Full ROM with crepitus. Negative Damion?s. No ligamentous laxity. NVI. General: Yes normal to inspection, Yes no pedal edema and Yes no calf tenderness Office Procedures AMB Joint Injection/Aspiration Joint Injection/Aspiration Details: #1 euflexxa Primary Site: right knee Secondary Site: left knee Prep: site was prepped using aseptic technique, ethochloride spray was applied and injection warnings given Injected: in the joint Approach Used: anterolateral Coding - Glenohumeral/Tronchanteric Bursa/Intraarticular Procedure code (CPT) selection complete Assessment & Plan Assessment & Plan (1) Patellofemoral disorder of both knees: Code(s): M22.2X1 - Patellofemoral disorders, right knee; M22.2X2 - Patellofemoral disorders, left knee Category: Medical Plan Plan was to proceed with gel injection today. #1 bilat knee euflexxa Injection performed today which the patient tolerated well. She will rest ice and use anti-inflammatories as needed for the next several days. I will see her back in 1 week for injection number 2 Coding Level of Care Code Procedure Only Diagnoses Patellofemoral disorder of both knees M22.2X1; M22.2X2 CPT Codes Coding - Joint 7: - Glenohumeral/Tronchanteric Bursa/Intraarticular ([id number])
--- OUTSIDE RECORDS SUMMARY | 2024-12-17 09:07 | XMS_ITS | Clinical Summary ---
Author Organization 175 [facility] Address [address] [place] [address] Phone Care Team Providers Care Orchardist Name Role Phone Hima Mccloud Primary Care [...] 11/24/2024 10:45 AM EDT Consult Orthopedic Surgery [facility] [address] [address] Kolby Blankenship DPM Pain in left foot [...] 10:00 AM EDT Office Visit Orthopedic Surgery [facility] [address] [address] Kolby Blankenship DPM [address] [address] Health Maintenance Due Date Last Done Comments [...] patient's age to complete this topic Insurance [address] [address] [place] [address] Care Teams Orchardist Relationship Specialty Start Date End Date Hima Mccloud PA [address] [place] [address] PCP - General Physician Casing Flusher 09/29/24
== END 2024-12-17 09:41 | disposition home or self-care (01) ==
LOC: HO.HOS 08:47
PROVIDERS: PCP Physician Assistant; Visit Provider Physician Assistant
DX: M22.2X1 Patellofemoral disorders, right knee (principal); M22.2X2 Patellofemoral disorders, left knee
CPT/HCPCS: 20610

== ENCOUNTER 2024-12-17 08:46 | Outpatient (REF) | payer OTHER, SELFPAY ==
[2024-12-17 10:37] LABS: Alanine Aminotransferase 44 U/L (0-31); Albumin Level 3.7 g/dL (3.5-5.0); Alkaline Phosphatase 77 U/L (39-117); Anion Gap 10 (12-20); Aspartate Amino Transferase 33 U/L (5-31); Bilirubin Total 0.2 mg/dL (0.0-1.0); Blood Urea Nitrogen 14 mg/dL (9-16); Calcium 8.6 mg/dL (8.4-10.2); Carbon Dioxide 24 mmol/L (22-29); Chloride 109 mmol/L (96-108); Cholesterol 164 mg/dL (<200); Estimated Glomerular Filt Rate > 60; Glucose Fasting 101 mg/dL (60-99); HDL Cholesterol 39 mg/dL (>40); LDL Cholesterol Calculated 106 mg/dL (<100); Potassium 4.2 mmol/L (3.3-5.1); Sodium 139 mmol/L (135-145); Total Protein 6.5 g/dL (6.5-8.0); Triglycerides 99 mg/dL (<150)
[2024-12-17 10:44] LABS: TSH reflex Free T4 25.16 uIU/mL (0.32-4.0)
[2024-12-17 11:20] LABS: Free T4 (Free Thyroxine) 0.82 ng/dL (0.71-1.85)
== END 2024-12-17 08:47 | disposition home or self-care (01) ==
LOC: HO.LAB 08:46
PROVIDERS: Absent Provider Physician Assistant; PCP Physician Assistant; Visit Provider Physician Assistant
DX: M22.2X1 Patellofemoral disorders, right knee (principal); M22.2X2 Patellofemoral disorders, left knee; R73.09 Other abnormal glucose; E78.2 Mixed hyperlipidemia; E03.9 Hypothyroidism, unspecified
CPT/HCPCS: 20610; 36415; 80053; 80061; 84439; 84443; J7323

== ENCOUNTER 2024-12-23 08:46 | Outpatient (AMB) | payer OTHER, SELFPAY ==
--- NOTE | 2024-12-23 08:58 | MHC.PC.OV ---
Vital Signs 12/23/24 08:59 Height 5 ft 5.5 in Weight 362 lb 7.039 oz BMI 59.4 BP 130/74 Blood Pressure Location Lt brachial Position Sitting Pulse 81 Pulse Source Pulse Oximeter Temp 97.3 F Temp Source Temporal Artery Scan Pulse Oximetry (%) 96 Oxygen Delivery Method Room Air Intake Visit Reasons: Annual Exam Intake Note: Patient is here today for a physical. Gaming Cage Worker Required: No Hydraulic Design Engineer: Not Required per policy Accompanied by: Self / Same As Patient Allergies dog dander [DOG] Allergy (Unknown, Verified 12/23/24 09:17) SNEEZING/ITCHY pollen extracts [POLLEN] Allergy (Unknown, Verified 12/23/24 09:17) SNEEZING, ITCHY Medication List - Last Reconciled 12/23/24 by Hima Mccloud PA-C albuterol sulfate 90 mcg/actuation 1 inh inhalation QID PRN 90 days fluticasone propion-salmeterol 115-21 mcg/actuation (Advair HFA) 2 puffs inhalation BID 30 days hydrochlorothiazide 12.5 mg PO DAILY 90 days levothyroxine 175 mcg PO DAILY 90 days polyethylene glycol 3350 (Miralax) 17 grams PO DAILY 30 days simvastatin 20 mg PO DAILY Tobacco use date assessed: 12/23/24 Dental Screening Dental Screen Date: 08/06/24 [facility] Annual Exam HPI Details patient is a 44 year female being here today for follow-up visit Patient has a past medical history significant for morbid obesity, lymphedema, hypothyroidism and hyperlipidemia. Concern--> patient reports she has been having more frequent and severe headaches. Has a long-term history of migraine disorder. She has been using obgn-geo-rvyimyr Excedrin and ibuprofen though have not been effective on reducing her headaches. PLAN: Will supply patient with magnesium and vitamin B2 supplement to help reduce frequency of migraines. Also will supply patient with Imitrex to use to abort migraines. Knee pain: Now followed by Orthopedics and getting a series of gel injections. She reports some minimal improvement though still has knee pain. .. Hypothyroid: Patient continues on levothyroxine 150 mcg. Most recent TSH elevated at 25. PLAN: Will increase her levothyroxine to 200 mcg. Impaired glucose metabolism: Most recent A1c has improved to 5.7 . Hyperlipidemia: Again unable to get fasting labs due to her severe agoraphobia, has not been able to to leave her house in over 3 years. Most recent lipid panel showing excellent control over total cholesterol and LDL She continues on daily use of simvastatin .. ?smoker:? unfortunately patient continues to smoke and understands she does need to completely quit smoking. Has tried Chantix nicotine patches though have not been effective for her. She reports she has been smoking more since she has been more anxious lately .. Class 3 obesity: Unfortunately patient has gained weight over the last few months. Unclear if this is related to her thyroid issue. Fortunately not able to be physically active due to chronic knee pain and agoraphobia of leaving her home. Breast cancer screening: Has upcoming appointment for mammogram January 21 2025 Cervical cancer screening: Need PAP though declines at this time as she is still getting over fears of having this done. Vaccines: Up-to-date with tetanus vaccine, flu vaccine, needs PCV-20 Laboratory Tests 04/25/19 09/12/24 12/17/24 09:35 10:23 09:25 Fasting Glucose 101 H AST 33 H ALT 44 H LDL Cholesterol, C alc 90 106 H TSH 2.80 25.16 H Thyroid Peroxidase Ab 1774 H PFSH Medical History Anemia Asthma Elevated cholesterol HTN (hypertension) Morbid obesity Lymphedema Hypothyroidism Surgical History History of endoscopy Family History Father No problems noted. Mother Hypertension Hypothyroidism Maternal Grandmother Lung cancer Maternal Grandfather Colon cancer Maternal Uncle Bone cancer Social History (Updated 12/23/24 @ 09:22 by Hima Mccloud PA-C) Housing: Apartment Alcohol intake: current Alcohol intake frequency: holidays/special occasions only Patient Tobacco Use Status: Current everyday Tobacco user Tobacco use type: Cigarette Cigarette Packs Per Day: 1 Cigarettes Per Day: 20 e-Cigarette/Vaping Use: Never Used Second Hand Smoke Exposure: Yes Substance Use Type: Marijuana service: No Current occupational status: unemployed Cognitive needs: No Hearing needs: No Vision needs: Yes (glasses) Questionnaire PHQ-9 Over the last 2 weeks, how often have you been bothered by any of the following problems? 1. Little interest or pleasure in doing things: nearly every day 2. Feeling down, depressed, or hopeless: nearly every day 3. Trouble falling or staying asleep, or sleeping too much: nearly every day 4. Feeling tired or having little energy: nearly every day 5. Poor appetite or overeating: more than half the days 6. Feeling bad about yourself - or that you are a failure or have let yourself or your family down: nearly every day 7. Trouble concentrating on things, such as reading the newspaper or watching television: nearly every day 8. Moving or speaking so slowly that other people could have noticed. Or the opposite - being so fidgety or restless that you have been moving around a lot more than usual: more than half the days 9. Thoughts that you would be better off or of hurting yourself in some way: nearly every day Total score: 25 Depression Screening Interpretation: Positive Depression Screening Follow-up: Existing condition Depression Screening Done: Yes 51593 - PHQ-9 Billing: Yes Source: Developed by Drs. Ryan Linn, Michelle Mckenzie, Edward Fletcher and colleagues, with an educational emil from [employer]. Thrive Questionnaire Date Thrive assessed: 12/23/24 I am a: Patient What is your living situation today?: I have a place to live, but I am worried about losing it in the future Within the past 12 months, did the food you bought not last and you didn't have the money to get more?: Sometimes True Within the past 12 months, did you worry whether your food would run out before you got money to buy more?: Sometimes True Do you have trouble paying for medicines?: No Do you have trouble getting transportation to medical appointments?: No Do you have trouble paying your heating and electricity bill?: I choose not to answer this question Do you have trouble taking care of your child, family member or friend?: No Do you have trouble with day-to-day activities such as bathing, preparing meals, shopping, managing finances, etc.?: I choose not to answer this question Are you currently unemployed and looking for a job?: I choose not to answer this question Are you interested in more education?: I choose not to answer this question Please select the resources that you would like help with: None Currently or been in a relationship where the following occur: No concerns reported THRIVE Score: 3 AUDIT C Alcohol Use Questionnaire (AUDIT-C) 1. How often do you have a drink containing alcohol?: Never Total Score: 0 STEVEN-7 AMB Questionnaire STEVEN-7 Date STEVEN - 7 assessed: 12/23/24 Feeling nervous, anxious, or on edge: 3 = Nearly every day Not being able to stop or control worryin = Nearly every day Worrying too much about different things: 3 = Nearly every day Trouble relaxin = Nearly every day Being so restless that it is hard to sit still: 3 = Nearly every day Becoming easily annoyed or irritable: 3 = Nearly every day Feeling afraid as if something awful might happen: 2 = More than half the days Total STEVEN-7 score (0-4 normal; 5-9 mild; 10-14 moderate; 15-21 severe): 20 Source: Developed by Drs. Ryan Linn, Michelle Mckenzie, Edward Fletcher and colleagues, with an educational emil from [employer]. STEVEN-7 Assessment Billing STEVEN-7 Assessment Tool: STEVEN-7 Assessment 11733 Review of Systems Const Denies body aches, Denies chills, Denies excessive sweating, Denies fatigue, Denies fever(s) and Denies headache(s) Eyes Denies blurry vision ENT Denies dysphagia, Denies vertigo, Denies dizziness, Denies headache(s), Denies hearing loss and Denies tinnitus Card Denies chest pain, Denies chest pain with activity, Denies syncope, Denies irregular heart rhythm and Denies dyspnea Resp Denies chest congestion, Denies cough, Denies hemoptysis, Denies dyspnea and Denies wheezing GI Denies abdominal pain, Denies melena, Denies hematochezia, Denies coffee ground emesis, Denies dysphagia, Denies diarrhea, Denies nausea and Denies vomiting Denies urinary frequency, Denies dysuria, Denies urinary hesitancy and Denies urinary urgency Musc Denies arthralgias, Denies limited range of motion, Denies muscle cramps and Denies muscle weakness Skin/Breast Denies rash and Denies skin ulcer Neuro Denies Abnormal speech present, Denies confusion, Denies vertigo, Denies dizziness, Denies syncope, Denies headache(s), Denies memory loss and Denies seizure-like activity Psych Denies anxiety, Denies confusion, Denies depression, Denies memory loss, Denies panic attacks and Denies paranoia Endo Denies excessive sweating, Denies fatigue, Denies flushing, Denies polydipsia and Denies polyuria Aller/Immun Denies wheezing Physical exam (Primary Care) Vital Signs: Last Vital Signs Temp 97.3 F 12/23/24 08:59 Pulse 81 12/23/24 08:59 BP 130/74 12/23/24 08:59 Pulse Ox 96 12/23/24 08:59 Oxygen Delivery Method Room Air 12/23/24 08:59 BMI result Body Mass Index 59.4 BMI Assessment/Plan discussion: High BMI High, discussed plan: lifestyle, weight reduction, dietary and physical activity Tobacco/Smoking Status: Tobacco use Status Tobacco use date assessed 12/23/24 12/23/24 09:05 Patient Tobacco Use Status Current everyday Tobacco 12/23/24 09:22 Tobacco use type Cigarette 12/23/24 09:22 e-Cigarette/Vaping Use Never Used 12/23/24 09:22 Are you ready to quit: No Tobacco cessation counseling provided: Yes Items discussed: Nicotine replacement Relapse Prevention: discussed the importance of a supportive environment, discussed negative mood or depression after quitting, weight gain after smoking is common and discussed dietary, exercise and/or lifestyle changes Number of minutes spent counselin CPT code: 88429 - 4-10 Minutes PHQ-9: PHQ-9 Score PHQ-9: Total score 12/23/24 09:37 Depression Screening Interpretation: Positive Depression Screening Follow-up: Existing condition Thrive Assessment: Date of Thrive Assessment Date Thrive assessed 12/23/24 12/23/24 09:05 Currently or been in a relationship where the following occur: No concerns reported Const Other: Morbidly obese General: cooperative, comfortable, no acute distress, alert and awake; No confusion Orientation/consciousness: oriented to person, oriented to place, patient oriented x3 and No confusion HENMT Head: Yes normocephalic Ears: external ears normal and TM's normal bilaterally Face and sinus: No sinus tenderness Mouth: Normal oral and palatal mucosa present and tongue normal Teeth and gingiva: dentition normal and gingiva normal Throat: Yes posterior oropharynx normal, Yes tonsils normal and Yes uvula midline Eyes Conjunctivae: conjunctivae normal Sclerae: sclerae normal Pupils: Equal, round and reactive pupils present EOM: EOMs intact bilaterally Direct Ophthalmoscopy: No no photophobia Neck Neck: Yes no lymphadenopathy, No tender and Yes no JVD Thyroid: Thyroid normal Carotids: no bruits Chest Chest palpation & inspection: no tenderness Resp Effort & Inspection: normal respiratory effort, no audible wheezes, not labored and no stridor Auscultation: no crackles, no rales, no rhonchi and no wheezes Cardio Jugular venous distension: no JVD Rate: regular rate, not bradycardic and not tachycardic Rhythm: regular rhythm Bruits: no carotid bruits Peripheral pulses: Peripheral pulses 2+ throughout GI Inspection: Yes normal to inspection, No abdominal wall ecchymosis and No visible herniation Palpation (GI): Soft to palpation, nontender, no guarding, not rigid and No hepatosplenomegaly present Auscultation: normoactive bowel sounds General: Yes no CVA tenderness Back/Spine/Pelvis Back: no CVA tenderness and No back tenderness Cervical Spine: cervical ROM normal Thoracic/Lumbar Spine: thoracic and lumbar spine normal to inspection, straight leg raise negative bilaterally, No thoraco-lumbar ROM limited and No lumbar spinal tenderness Skin Lesions: no lesions Rashes: no rashes Wounds: no wounds Neuro General: oriented to person, oriented to place, patient oriented x3, CN's II-XI intact bilaterally and No confusion Cranial nerves: Yes Equal, round and reactive pupils present and Yes Normal accommodation reflex present Cognition (Neuro): normal cognition Speech: No Abnormal speech present Gait exam (Neuro): Normal gait present Motor exam (neuro): 5/5 motor strength present throughout Extrem Right upper extremity: full ROM; no cyanosis Left upper extremity: full ROM; no cyanosis Right lower extremity: no edema Left lower extremity: no edema Psych Appearance: grossly normal Mental Status: mental status grossly normal Affect: normal affect Attitude: cooperative Thought process: Normal thought process present Immunizations pneumoc 20-katty conj-dip cr(PF) 0.5 mL IM syringe Performing Provider: Hima Mccloud PA-C Performing Location: [facility] Administered by: Carmina Rubio CMA on 12/23/24 09:37 Dose Route Admin Location Dispensed Lot Number Expiration Date NDC Student Teacher 0.5 mL IM Left Deltoid 0.5 mL [id number] 09/19/25 [employer] Calendar VIS Given Date VIS Provided VIS Publication Date 12/23/24 Single Vaccine 22 Eligibility Eligibility Date Funding Source Not [facility] Eligible 12/23/24 Private Coding Level of Care Code Est Pt Level 4 (71965) Diagnoses Annual physical exam Z00.00 Impaired glucose metabolism R73.09 Primary hypertension I10 Hypertension type: primary hypertension Hypothyroidism, unspecified type E03.9 Hypothyroidism type: unspecified Mixed hyperlipidemia E78.2 Hyperlipidemia type: mixed hyperlipidemia Class 3 obesity E66.813 Tobacco dependence F17.200 Migraine without status migrainosus, not intractable, unspecified migraine type G43.909 Intractability: not intractable Migraine type: unspecified Status migrainosus presence: without status migrainosus Additional Codes PHQ-9 - 86242 - PHQ-9 Billing: Yes ([id number]) STEVEN-7 Assessment Billing - STEVEN-7 Assessment Tool: STEVEN-7 Assessment 77488 ([id number]) Vital Signs *Quality* - CPT code: 28935 - 4-10 Minutes ([id number]) Assessment & Plan Assessment & Plan (1) Annual physical exam: Code(s): Z00.00 - Encounter for general adult medical examination without abnormal findings Category: Medical Plan: As per HPI (2) Impaired glucose metabolism: Code(s): R73.09 - Other abnormal glucose Category: Medical Plan: Today's A1c of 5.7 from 5.9. Unfortunately has not lost much weight. She has been trying to work on a lower calorie diet. (3) HTN (hypertension): Code(s): I10 - Essential (primary) hypertension Category: Medical Qualifiers: Hypertension type: primary hypertension Qualified Code(s): I10 - Essential (primary) hypertension Plan: Patient's blood pressure acceptable today in office. She continues on hydrochlorothiazide with good effect. Goal blood pressures to be below 140/90 (4) Hypothyroidism: Code(s): E03.9 - Hypothyroidism, unspecified Category: Medical Qualifiers: Hypothyroidism type: unspecified Qualified Code(s): E03.9 - Hypothyroidism, unspecified Plan: Patient continues on levothyroxine 175 mcg which was increased in the spring. Unfortunately TSH elevated at 25. Will increase her levothyroxine 200 mcg every morning Refer to endocrinology as she has had high doses of levothyroxine and TSH still difficult to manage (5) HLD (hyperlipidemia): Code(s): E78.5 - Hyperlipidemia, unspecified Category: Medical Qualifiers: Hyperlipidemia type: mixed hyperlipidemia Qualified Code(s): E78.2 - Mixed hyperlipidemia Plan: Most recent lipid panel showing good control over total cholesterol and LDL. Will continue simvastatin 20 mg with goal LDL to remain below 130 (6) Class 3 obesity: Code(s): E66.813 - Obesity, class 3 Category: Medical Plan: Patient does understand her BMI is over 60 and will try to work on better eating habits. She has not been able to be physically active due to her severe anxiety and her pain complaints. (7) Tobacco dependence: Code(s): F17.200 - Nicotine dependence, unspecified, uncomplicated Category: Medical Plan: Patient does understand she needs to quit smoking. Has tried Chantix and nicotine replacement though have not been effective. She has a lot of anxiety and reports smoking does help with her anxiety. (8) Migraine: Code(s): G43.909 - Migraine, unspecified, not intractable, without status migrainosus Category: Medical Qualifiers: Intractability: not intractable Migraine type: unspecified Status migrainosus presence: without status migrainosus Qualified Code(s): G43.909 - Migraine, unspecified, not intractable, without status migrainosus Plan: Patient reporting 20 years of migraines though lately has been more frequent and severe. Will supply patient with Imitrex to use for migraine . Will also start magnesium and riboflavin supplementation to help reduce her frequency of migraines. Orders: Orders Pneumococcal 20 Immunization Today E03.9 - Hypothyroidism, unspecified, Z23 - Encounter for immunization TSH reflex Free T4 Today E03.9 - Hypothyroidism, unspecified Complete Blood Count no Diff Today E03.9 - Hypothyroidism, unspecified Lipid Panel Today E78.2 - Mixed hyperlipidemia Comprehensive [place]. Panel Fast Today E03.9 - Hypothyroidism, unspecified Referrals Endocrinology Referral E03.9 - Hypothyroidism, unspecified Medications: New magnesium oxide 250 mg PO BID 180 tabs 1RF 90 days G43.909 - Migraine, unspecified, not intractable, without status migrainosus, R51.9 - Headache, unspecified levothyroxine 200 mcg PO DAILY 30 tabs 3RF 30 days E03.9 - Hypothyroidism, unspecified sumatriptan succinate take 1 tab at onset of headache; if no relief may repeat 1 tab after at least 2 hrs; max = 4 tabs/24 hr PO 9 tabs 1RF 30 days G43.909 - Migraine, unspecified, not intractable, without status migrainosus riboflavin (vitamin B2) 400 mg PO DAILY 90 tabs 1RF 90 days G43.909 - Migraine, unspecified, not intractable, without status migrainosus On Hold levothyroxine Hold Comment: Doctor's Order 175 mcg PO DAILY 90 days 90 tabs 0RF E03.9 - Hypothyroidism, unspecified
[2024-12-23 08:59] VITALS: BP 130/74; PULSE 81; TEMP 36.3; O2SAT 96; BMI 59.4
--- OUTSIDE RECORDS SUMMARY | 2024-12-23 09:19 | XMS_ITS | Clinical Summary ---
Author Organization 175 [facility] Address [address] [place] [address] Phone Care Team Providers Care Executive Vice President Name Role Phone Hima Mccloud Primary Care [...] 11/24/2024 10:45 AM EDT Consult Orthopedic Surgery [facility] [address] [phone] Kolby Blankenship DPM Pain in left foot [...] 10:00 AM EDT Office Visit Orthopedic Surgery [facility] [address] [phone] Kolby Blankenship DPM [address] [address] Health Maintenance Due Date Last Done Comments Breast Cancer Screening 1981 DTaP,Tdap,and Td Vaccines (1 - Tdap) 2000 Hepatitis B Vaccines (1 of 3 - 19+ 3-dose series) 2000 Cervical Cancer Screening: P ap Smear 2002 COVID-19 Vaccine (2023-2 5 season) 2024 Depression Screening 09/29/2024 HIV [...] patient's age to complete this topic Insurance [facility] Care Teams Executive Vice President Relationship Specialty Start Date End Date Hima Mccloud PA PCP - General Physician Wheel Worker 09/29/24
== END 2024-12-23 09:42 | disposition home or self-care (01) ==
LOC: HO.HMCH 08:47
PROVIDERS: PCP Physician Assistant; Visit Provider Physician Assistant
DX: Z00.00 Encounter for general adult medical examination without abnormal findings (principal); R73.09 Other abnormal glucose; I10 Essential (primary) hypertension; Z68.43 Body mass index [BMI] 50.0-59.9, adult; E66.813 Obesity, class 3; E03.9 Hypothyroidism, unspecified; E78.2 Mixed hyperlipidemia; F17.200 Nicotine dependence, unspecified, uncomplicated; G43.909 Migraine, unspecified, not intractable, without status migrainosus; Z23 Encounter for immunization

== ENCOUNTER → 2024-12-23 08:46 | Outpatient (BNVA) | payer OTHER, SELFPAY | PROVIDERS: PCP Physician Assistant; Visit Provider Physician Assistant | DX: Z00.00 Encounter for general adult medical examination without abnormal findings (principal); E03.9 Hypothyroidism, unspecified; F17.210 Nicotine dependence, cigarettes, uncomplicated; E66.813 Obesity, class 3; M25.569 Pain in unspecified knee; R73.01 Impaired fasting glucose; I10 Essential (primary) hypertension; E78.2 Mixed hyperlipidemia; G43.909 Migraine, unspecified, not intractable, without status migrainosus; Z23 Encounter for immunization; Z68.43 Body mass index [BMI] 50.0-59.9, adult | CPT/HCPCS: 90471; 90677; 96127; 99212; 99396 ==

== ENCOUNTER 2024-12-24 08:48 | Outpatient (AMB) | payer OTHER, SELFPAY ==
--- NOTE | 2024-12-24 08:57 | MHC.OFFVIS ---
Intake Visit Reasons: INJ- b/l knee Euflexxa injection #3 Intake Note: Gabby is a 44 year old female who presents today for bilateral knee Euflexxa injection #3. Allergies dog dander [DOG] Allergy (Unknown, Verified 12/23/24 09:17) SNEEZING/ITCHY pollen extracts [POLLEN] Allergy (Unknown, Verified 12/23/24 09:17) SNEEZING, ITCHY Medication List - Last Reconciled 12/24/24 by Franco Newby PA-C albuterol sulfate 90 mcg/actuation 1 inh inhalation QID PRN 90 days fluticasone propion-salmeterol 115-21 mcg/actuation (Advair HFA) 2 puffs inhalation BID 30 days hydrochlorothiazide 12.5 mg PO DAILY 90 days levothyroxine 200 mcg PO DAILY 30 days levothyroxine 175 mcg PO DAILY 90 days magnesium oxide 250 mg PO BID 90 days polyethylene glycol 3350 (Miralax) 17 grams PO DAILY 30 days riboflavin (vitamin B2) 400 mg PO DAILY 90 days simvastatin 20 mg PO DAILY sumatriptan succinate take 1 tab at onset of headache; if no relief may repeat 1 tab after at least 2 hrs; max = 4 tabs/24 hr PO 30 days HPI HPI INJ- b/l knee Euflexxa injection #3: Details: 44 year old female who presents today for bilateral knee Euflexxa injection #3 PFSH Medical History Anemia Asthma Elevated cholesterol HTN (hypertension) Morbid obesity Lymphedema Hypothyroidism Surgical History History of endoscopy Family History Father No problems noted. Mother Hypertension Hypothyroidism Maternal Grandmother Lung cancer Maternal Grandfather Colon cancer Maternal Uncle Bone cancer Social History (Updated 12/23/24 @ 09:22 by Hima Mccloud PA-C) Housing: Apartment Alcohol intake: current Alcohol intake frequency: holidays/special occasions only Patient Tobacco Use Status: Current everyday Tobacco user Tobacco use type: Cigarette Cigarette Packs Per Day: 1 Cigarettes Per Day: 20 e-Cigarette/Vaping Use: Never Used Second Hand Smoke Exposure: Yes Substance Use Type: Marijuana service: No Current occupational status: unemployed Cognitive needs: No Hearing needs: No Vision needs: Yes (glasses) Review of Systems Const All systems reviewed & are unremarkable except as noted in HPI and below Physical Exam Const General: cooperative, healthy appearing, comfortable and no acute distress Orientation/consciousness: patient oriented x3 Neck Neck: Yes normal visual inspection and Yes no JVD Chest Chest palpation & inspection: normal inspection of the chest Resp Effort & Inspection: normal respiratory effort Auscultation: clear to auscultation bilaterally, crackles (no), rales (no), rhonchi (no) and wheezes (no) Cardio Jugular venous distension: no JVD Rate: regular rate Rhythm: regular rhythm Heart sounds: S1 normal heart sound present, S2 normal heart sound present, Murmur heart sound present (no) and Rub heart sound present (no) Neuro General: patient oriented x3 Extrem Other: Bilateral knee: Skin intact, no erythema or joint effusion. She has lateral retropatellar tenderness. Full ROM with crepitus. Negative Damion?s. No ligamentous laxity. NVI. General: Yes normal to inspection, Yes no pedal edema and Yes no calf tenderness Office Procedures AMB Joint Injection/Aspiration Joint Injection/Aspiration Details: #3 euflexxa Primary Site: right knee Secondary Site: left knee Prep: site was prepped using aseptic technique, ethochloride spray was applied and injection warnings given Injected: in the joint Approach Used: anterolateral Procedure: The patient tolerated the procedure well Coding - Glenohumeral/Tronchanteric Bursa/Intraarticular Procedure code (CPT) selection complete Assessment & Plan Assessment & Plan (1) Patellofemoral disorder of both knees: Code(s): M22.2X1 - Patellofemoral disorders, right knee; M22.2X2 - Patellofemoral disorders, left knee Category: Medical Plan Plan was to proceed with gel injection today. #3 bilat knee euflexxa Injection performed today which the patient tolerated well. She will rest ice and use anti-inflammatories as needed for the next several days. She will see me back prn if symptoms persist. Coding Level of Care Code Procedure Only Diagnoses Patellofemoral disorder of both knees M22.2X1; M22.2X2 CPT Codes Coding - Joint 7: 70432 - Glenohumeral/Tronchanteric Bursa/Intraarticular ([id number])
--- OUTSIDE RECORDS SUMMARY | 2024-12-24 09:08 | XMS_ITS | Clinical Summary ---
Author Organization 175 [facility] Address [address] [place] [address] Phone Care Team Providers Care Deli Department Manager Name Role Phone Hima Mccloud Primary Care [...] 11/24/2024 10:45 AM EDT Consult Orthopedic Surgery [facility] [address] [phone] Kolby Blankenship DPM Pain in left foot [...] 10:00 AM EDT Office Visit Orthopedic Surgery [facility] [address] [phone] Kolby Blankenship DPM [address] [address] Health Maintenance Due Date Last Done Comments [...] [facility] Care Teams Deli Department Manager Relationship Specialty Start Date End Date Hima Mccloud PA PCP - General Physician Training Development Director 09/29/24
== END 2024-12-24 10:19 | disposition home or self-care (01) ==
LOC: HO.HOS 08:50
PROVIDERS: PCP Physician Assistant; Visit Provider Physician Assistant
DX: M22.2X1 Patellofemoral disorders, right knee (principal); M22.2X2 Patellofemoral disorders, left knee
CPT/HCPCS: 20610

== ENCOUNTER → 2024-12-24 08:48 | Outpatient (BNVA) | payer OTHER, SELFPAY | PROVIDERS: PCP Physician Assistant; Visit Provider Physician Assistant | DX: M22.2X1 Patellofemoral disorders, right knee (principal); M22.2X2 Patellofemoral disorders, left knee | CPT/HCPCS: 20610; J7323 ==

== ENCOUNTER 2024-12-29 10:23 | Outpatient (REF) | payer OTHER, SELFPAY ==
[2024-12-29 11:12] LABS: MANUAL DIFF FLAG NO
[2024-12-29 11:33] LABS: Basophils Absolute Auto 0.1 X10*3/uL (0.0-0.2); Basophils Percent Auto 0.9 % (0-2); Eosinophils Absolute Auto 0.2 X10*3/uL (0.0-0.4); Hematocrit 39.8 % (37.0-47.0); Imm Gran Abs Auto 0.02 X10*3/uL (0.00-0.03); Imm Gran Pct Auto 0.2 % (0.0-0.4); Lymphocytes Absolute Auto 2.4 X10*3/uL (1.2-4.9); Lymphocytes Percent Auto 27.1 % (20-40); Mean Corpuscular HGB Conc 30.2 g/dl (31.0-35.0); Mean Corpuscular Hemoglobin 23.4 pg (27.0-33.0); Mean Corpuscular Volume 77.6 fL (80.0-98.0); Mean Platelet Volume 11.1 fL (9.4-12.3); Monocytes Absolute Auto 0.6 X10*3/uL (0.1-1.2); Monocytes Percent Auto 6.7 % (2-11); Neutrophils Absolute Auto 5.5 x10*3/uL (2.0-8.3); Neutrophils Percent Auto 63.1 % (45-73); Platelet Count 297 X10*3/uL (160-400); Red Blood Count 5.13 X10*6/uL (4.20-5.50); Red Cell Distribution Width 18.9 % (11.0-16.0); White Blood Count 8.8 X10*3/uL (4.8-10.8)
[2024-12-29 12:11] LABS: Alanine Aminotransferase 21 U/L (0-31); Albumin Level 4.1 g/dL (3.5-5.0); Alkaline Phosphatase 77 U/L (39-117); Anion Gap 12 (12-20); Aspartate Amino Transferase 19 U/L (5-31); Bilirubin Total 0.3 mg/dL (0.0-1.0); Blood Urea Nitrogen 10 mg/dL (9-16); Calcium 9.3 mg/dL (8.4-10.2); Carbon Dioxide 26 mmol/L (22-29); Chloride 106 mmol/L (96-108); Cholesterol 163 mg/dL (<200); Estimated Glomerular Filt Rate > 60; Glucose Fasting 94 mg/dL (60-99); HDL Cholesterol 39 mg/dL (>40); LDL Cholesterol Calculated 93 mg/dL (<100); Sodium 140 mmol/L (135-145); Total Protein 7.1 g/dL (6.5-8.0); Triglycerides 157 mg/dL (<150)
[2024-12-29 12:13] LABS: TSH reflex Free T4 19.98 uIU/mL (0.32-4.0)
[2024-12-29 12:45] LABS: Free T4 (Free Thyroxine) 1.07 ng/dL (0.71-1.85)
[2025-01-02 21:18] LABS: Class Alternaria alternata 0; Class Aspergillus fumigatus 0; Class Bermuda Grass 0; Class Birch 0; Class Cat Dander 0; Class Cladosporium herbarum 0; Class Cockroach 0; Class Common Ragweed 0; Class Cottonwood 0; Class Derm. pterony 2; Class Dermatophagoides farinae 0/1; Class Dog Dander 0; Class Elm 0; Class Maple Box Elder 0; Class Mountain Cedar 0; Class Mouse Urine Protein 0; Class Mugwort 0; Class Oak 0; Class Penicillium crysogenum 0; Class Rough Pigweed 0; Class Sheep Sorrel 0; Class Sycamore 0; Class Timothy Grass 0; Class Walnut Tree 0; Class White Ash 0; Class White Mulberry 0; D001 IgE D pteronyssinus 0.72 kU/L; E001 - IgE Cat Dander <0.10 kU/L; E005 - IgE Dog Dander <0.10 kU/L; E072-IgE Mouse Urine <0.10 kU/L; G002 IgE Bermuda Grass <0.10 kU/L; G006 - IgE Timothy Grass <0.10 kU/L; I006-IgE Cockroach, German <0.10 kU/L; Immunoglobulin E 238 kU/L (<OR=114); M001 IgE Penicillium chrysogen <0.10 kU/L; M002 - IgE Cladosporium herbar <0.10 kU/L; M003 - IgE Aspergillus fumigat <0.10 kU/L; M006 - IgE Alternaria alternat <0.10 kU/L; T001 IgE Maple/Box Elder <0.10 kU/L; T003 IgE Common Silver Birch <0.10 kU/L; T006 - IgE Cedar, Mountain <0.10 kU/L; T007 - IgE Oak, White <0.10 kU/L; T008 IgE Elm, American <0.10 kU/L; T010 - IgE Walnut <0.10 kU/L; T011 - IgE Maple Leaf Sycamore <0.10 kU/L; T014 - IgE Cottonwood <0.10 kU/L; T015 - IgE Ash, White <0.10 kU/L; T070 - IgE White Mulberry <0.10 kU/L; W001 - IgE Ragweed, Short <0.10 kU/L; W006 - IgE Mugwort <0.10 kU/L; W014 IgE Pigweed, Common <0.10 kU/L; W018 IgE Sheep Sorrel <0.10 kU/L
== END 2024-12-29 10:24 | disposition home or self-care (01) ==
LOC: HO.LAB 10:23
PROVIDERS: PCP Physician Assistant; Referring Provider Physician Assistant; Visit Provider Nurse Practitioner Family
DX: E03.9 Hypothyroidism, unspecified (principal); E78.2 Mixed hyperlipidemia; Z91.09 Other allergy status, other than to drugs and biological substances; J45.20 Mild intermittent asthma, uncomplicated; R04.2 Hemoptysis; F17.210 Nicotine dependence, cigarettes, uncomplicated; Z71.6 Tobacco abuse counseling
CPT/HCPCS: 36415; 80053; 80061; 82785; 84439; 84443; 85025; 86003; 99202

== ENCOUNTER 2024-12-29 10:23 | Outpatient (AMB) | payer OTHER, SELFPAY ==
[2024-12-29 10:25] VITALS: BP 136/88; PULSE 69; O2SAT 97; BMI 59.4
--- NOTE | 2024-12-29 10:25 | MHC.OFFVIS ---
Vital Signs 12/29/24 10:25 Height 5 ft 5.5 in Weight 362 lb 10.566 oz BMI 59.4 BP 136/88 Blood Pressure Location Rt brachial Position Sitting Pulse 69 Pulse Source Pulse Oximeter Pulse Oximetry (%) 97 Oxygen Delivery Method Room Air Intake Visit Reasons: Abnormal PFT Allergies dog dander [DOG] Allergy (Unknown, Verified 12/29/24 10:29) SNEEZING/ITCHY pollen extracts [POLLEN] Allergy (Unknown, Verified 12/29/24 10:29) SNEEZING, ITCHY HPI HPI Abnormal PFT: Details: Gabby is a pleasant 44 year old female, current smoker, with approximately 40 pack year history with underlying asthma, HTN, hypothyroidism, and HLD. She was referred by PCP for pulmonary evaluation for worsening control of asthma, currently on Advair 115 mcg with suboptimal effect, requiring frequent use of albuterol MDI. She continues with dyspnea on exertion, intermittent cough occasionally with small volume hemoptypsis, wheezing and chest tightness. She reports asthma diagnosed as a child, never requiring intubation, symptoms resolved up until 10 years ago. She endorses seasonal allergies, no recent allergy testing. She denies occupational exposures. She reports mother with respiratory symptoms unknown, and multiple first degree family members with asthma. Recent PFT 51491 revealed no obstructive or restrictive ventilatory defect and no bronchodilator response. There was note of increased residual volume suggests air trapping. DLCO normal. CXR 09/16 unremarkable. She currently smokes an average 1 ppd since the age of 11, did smoke 2 ppd 5-7 years and previously trialed NRT as well as Chantix with no effect. She is not interested in quitting at this time. [facility] Medical History Anemia Asthma Elevated cholesterol HTN (hypertension) Morbid obesity Lymphedema Hypothyroidism Surgical History History of endoscopy Family History Father No problems noted. Mother Hypertension Hypothyroidism Maternal Grandmother Lung cancer Maternal Grandfather Colon cancer Maternal Uncle Bone cancer Social History Housing: Apartment Alcohol intake: current Alcohol intake frequency: holidays/special occasions only Patient Tobacco Use Status: Current everyday Tobacco user Tobacco use type: Cigarette Cigarette Packs Per Day: 1 Cigarettes Per Day: 20 e-Cigarette/Vaping Use: Never Used Second Hand Smoke Exposure: Yes Substance Use Type: Marijuana service: No Current occupational status: unemployed Cognitive needs: No Hearing needs: No Vision needs: Yes (glasses) Review of Systems Const Denies chills, Denies excessive sweating, Denies fever(s), Denies headache(s) and Denies night sweats Eyes Denies dry eyes, Denies irritation and Denies itchy eyes ENT Reports Normal hearing present, Denies headache(s), Reports nasal congestion, Denies nasal discharge, Reports post nasal drip and Denies sore throat Card Denies chest pain, Denies chest pain at rest, Denies chest pain with activity, Denies claudication, Denies leg edema, Reports dyspnea on exertion, Denies orthopnea and Denies paroxysmal nocturnal dyspnea Resp Denies chest congestion, Reports cough, Reports hemoptysis, Denies excessive phlegm production, Denies pain on inspiration, Denies pain with cough, Reports dyspnea on exertion, Denies stridor and Reports wheezing Musc Denies myalgias Neuro Reports Normal hearing present and Denies headache(s) Endo Denies excessive sweating Kristian/Lymph Denies lymphadenopathy Aller/Immun Denies itchy eyes and Reports wheezing Physical Exam Vital Signs: Last Vital Signs Pulse 69 12/29/24 10:25 BP 136/88 12/29/24 10:25 Pulse Ox 97 12/29/24 10:25 Oxygen Delivery Method Room Air 12/29/24 10:25 BMI result Body Mass Index 59.4 Const General: cooperative, healthy appearing, comfortable, no acute distress, well developed and alert Nutritional Appearance: obese Orientation/consciousness: patient oriented x3 Limitations: no limitations HEENT Head: Yes normal to inspection, Yes normocephalic and Yes atraumatic Ears: hearing grossly normal bilaterally and external ears normal Eyes General: appearance normal, both eyes and all related structures Eyelids: Yes eyelids normal Sclerae: sclerae normal EOM: EOMs intact bilaterally Neck Neck: Yes normal visual inspection and Yes no lymphadenopathy Lymphatic: no lymphadenopathy noted Chest Chest palpation & inspection: normal inspection of the chest Resp Effort & Inspection: normal respiratory effort, able to speak in complete sentences, no audible wheezes, no cough, no stridor, not tachypneic, no tripod positioning and no use of accessory muscles Auscultation: diminished lung sounds Cardio Jugular venous distension: no JVD Rate: regular rate Rhythm: regular rhythm Skin Other: warm, dry General skin exam: no rashes or lesions noted Neuro General: patient oriented x3 Cranial nerves: Yes Normal hearing present Cognition (Neuro): normal cognition Gait exam (Neuro): Normal gait present Extrem General: Yes normal to inspection, Yes capillary refill normal, Yes no clubbing, cyanosis or edema and Yes no pedal edema Psych Appearance: grossly normal and well kempt Speech and movement: Normal speech and movement present and Clear speech present Affect: normal affect Attitude: cooperative Thought process: Normal thought process present Thought content: Normal thought content present Insight: Good insight present (Psych) Judgement: Good judgement present (Psych) Assessment & Plan Assessment & Plan (1) Asthma: Code(s): J45.909 - Unspecified asthma, uncomplicated Category: Medical Qualifiers: Asthma severity: mild Asthma persistence: intermittent Asthma complication type: uncomplicated Qualified Code(s): J45.20 - Mild intermittent asthma, uncomplicated (2) Hemoptysis: Code(s): R04.2 - Hemoptysis Category: Medical (3) Nicotine dependence, cigarettes, uncomplicated: Code(s): F17.210 - Nicotine dependence, cigarettes, uncomplicated Category: Medical Plan Gabby presents for pulmonary evaluation for suboptimal control of asthma. Will increase Advair to 230mcg and discussed importance of good oral hygiene to prevent thrush. Patient reports intermittent hemoptypsis likely from bronchitis however will send for CTA to assess for any underlying vascular malformations. She reports worsening respiratory symptoms triggered by seasonal allergies, will send for RAST. Smoking cessation reviewed, patient not ready to quit at this time. All questions were answered and patient is in agreement of plan. Will follow up in 6-8 weeks or sooner if needed. Orders: Orders Immunoglobulin E Today Z91.09 - Other allergy status, other than to drugs and biological substances Resp Allergy Profile Region I Today Z91.09 - Other allergy status, other than to drugs and biological substances Complete Blood Count Auto Diff Today Z91.09 - Other allergy status, other than to drugs and biological substances CT angio chest PE protocol Today R04.2 - Hemoptysis Medications: New fluticasone propion-salmeterol 230-21 mcg/actuation (Advair HFA) 2 puffs inhalation Q12H 12 grams 6RF Coding Level of Care Code New Pt Level 4 (17242) Diagnoses Mild intermittent asthma without complication J45.20 Asthma severity: mild Asthma persistence: intermittent Asthma complication type: uncomplicated Hemoptysis R04.2 Nicotine dependence, cigarettes, uncomplicated F17.210
--- OUTSIDE RECORDS SUMMARY | 2024-12-29 11:36 | XMS_ITS | Clinical Summary ---
Author Organization 175 [facility] Address [address] [place] [address] Phone Care Team Providers Care Delimber Operator Name Role Phone Hima Mccloud Primary Care Provider [phone] Allergies Active Allergy Reactions Criticality Noted Date [...] 11/24/2024 10:45 AM EDT Consult Orthopedic Surgery [facility] [address] [phone] Kolby Blankenship DPM Pain in left foot [...] 10:00 AM EDT Office Visit Orthopedic Surgery [facility] [address] [phone] Kolby Blankenship DPM [address] [address] Health Maintenance Due Date Last Done Comments [...] patient's age to complete this topic Insurance [facility] Care Teams Delimber Operator Relationship Specialty Start Date End Date Hima Mccloud PA PCP - General Physician Die Filer 09/29/24
== END 2024-12-29 10:56 | disposition home or self-care (01) ==
LOC: HO.HPS 10:24
PROVIDERS: PCP Physician Assistant; Referring Provider Physician Assistant; Visit Provider Nurse Practitioner Family
DX: J45.20 Mild intermittent asthma, uncomplicated (principal); R04.2 Hemoptysis; F17.210 Nicotine dependence, cigarettes, uncomplicated
CPT/HCPCS: 99204

== ENCOUNTER 2025-01-15 08:21 | Outpatient (AMB) | payer OTHER, SELFPAY ==
--- NOTE | 2025-01-15 08:23 | A.OFFVIS_ITS ---
Vital Signs 01/15/25 08:24 Weight 350 lb BP 108/68 Blood Pressure Location Lt brachial Position Sitting Pulse 76 Pulse Source Pulse Oximeter Pulse Oximetry (%) 93 Oxygen Delivery Method Room Air Intake Visit Reasons: Hypothyroidism (Adult) Intake Note: New patient present today for Hypothyroidism (Adult). Wildlife Photographer Required: No Accompanied by: Self / Same As Patient Allergies dog dander (DOG) Allergy (Unknown, Verified 01/15/25 08:29) SNEEZING/ITCHY pollen extracts (POLLEN) Allergy (Unknown, Verified 01/15/25 08:29) SNEEZING, ITCHY Medication List - Last Reconciled 01/15/25 by Loida Jacobsen MD albuterol sulfate 90 mcg/actuation 1 inh inhalation QID PRN 90 days fluticasone propion-salmeterol 115-21 mcg/actuation (Advair HFA) 2 puffs inhalation BID 30 days fluticasone propion-salmeterol 230-21 mcg/actuation (Advair HFA) 2 puffs inhalation Q12H hydrochlorothiazide 12.5 mg PO DAILY 90 days levothyroxine 200 mcg PO DAILY 30 days magnesium oxide 250 mg PO BID 90 days polyethylene glycol 3350 (Miralax) 17 grams PO DAILY 30 days riboflavin (vitamin B2) 400 mg PO DAILY 90 days simvastatin 20 mg PO DAILY sumatriptan succinate take 1 tab at onset of headache; if no relief may repeat 1 tab after at least 2 hrs; max = 4 tabs/24 hr PO 30 days HPI Comments Details: 44-year-old female here today for initial evaluation of hypothyroidism. Hypothyroidism diagnosed sometime around 2014 Reports initially was not good about taking the medication but now for the past 2 years good about taking the medicine Now on levothyroxine 200 mcg daily, was previously on 175 for at least a year , increased 12/23/24. Says in the last month she might have missed it 3-4 times. Back in August 2024 TSH was normal at 2.8, then in November 2024 TSH went up to 25.16 with free T4 normal at 0.82, labs repeated 12/29/2024 showed TSH improved but still high at 19.98 with a free T4 of 1.07. Patient currently denies hair loss, , mood changes, changes in appearance of eyes or vision changes,, increased diaphoresis or dry skin. Reports some increased tiredness. Has constipation resolved with miralax. no palpitations. Has some history of anxiety and associated tremors. ?has lost some weight but seeing bariatric surgery with plan for sleeve gastrectomy in the future and working on weight loss with them. Reports some difficulty swallowing. Feels she is getting a lisp intermittently Patient denies any history of childhood neck radiation. Denies having ever used lithium, amiodarone or biotin supplements. Patient denies any family history of thyroid cancer. Mother: hypothyroidism Maternal uncle: hypothyroidism. Physical exam General: sitting comfortably in no acute distress HEENT: normocephalic/atraumatic, skin tags noted on the neck Neck: supple, symmetrical Cardiac: normal heart sounds Pulm: normal breath sounds B/L, no added breath sounds Abd: not distended, no tenderness Extremities: no edema, no signs of myxedema Neuro: AAO x3, Speech: normal, no facial droop, moving all 4 extremities Laboratory Tests 01/22/19 04/25/19 12/11/23 15:49 09:35 07:49 Free T4 < 0.40 L 1.00 TSH 9.68 H Thyroid Peroxidase Ab 1774 H 09/12/24 12/17/24 12/29/24 10:23 09:25 11:11 Free T4 0.82 1.07 TSH 2.80 25.16 H 19.98 H Thyroid Peroxidase Ab PFSH Medical History Anemia Asthma Elevated cholesterol HTN (hypertension) Morbid obesity Lymphedema Hypothyroidism Surgical History History of endoscopy Family History Father No problems noted. Mother Hypertension Hypothyroidism Maternal Grandmother Lung cancer Maternal Grandfather Colon cancer Maternal Uncle Bone cancer Social History Housing: Apartment Alcohol intake: current Alcohol intake frequency: holidays/special occasions only Patient Tobacco Use Status: Current everyday Tobacco user Tobacco use type: Cigarette Cigarette Packs Per Day: 1 Cigarettes Per Day: 20 e-Cigarette/Vaping Use: Never Used Second Hand Smoke Exposure: Yes Substance Use Type: Marijuana service: No Current occupational status: unemployed Cognitive needs: No Hearing needs: No Vision needs: Yes (glasses) Physical Exam Vital Signs: Last Vital Signs Pulse 76 01/15/25 08:24 BP 108/68 01/15/25 08:24 Pulse Ox 93 01/15/25 08:24 Oxygen Delivery Method Room Air 01/15/25 08:24 Assessment & Plan Assessment & Plan (1) Hypothyroidism: Code(s): E03.9 - Hypothyroidism, unspecified Category: Medical Qualifiers: 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 Back in August 2024 TSH was normal at 2.8, then in November 2024 TSH went up to 25.16 with free T4 normal at 0.82, labs repeated 12/29/2024 showed TSH improved but still high at 19.98 with a free T4 of 1.07. 12/23/2024: PCP increased dose of levothyroxine from 175 to 200 mcg daily. At this point it has only been 3 weeks since dose change, I have asked her to repeat blood work in another 3 weeks for us to see if 200 is working better for her. At this time she is saying she has mostly been taking the medication she maybe missed it 3 or 4 times in the past month. We discussed importance of taking it 1st thing in the morning on an empty stomach and waiting at least an hour before she eats breakfast or coffee or tea. She has been taking it with ice tea, I told her to take it with only plain water to avoid any absorption issues. I also told her to separate it out from her other medications by at least an hour 2. Plan: -continue levothyroxine 200 mcg daily -do blood work ordered TSH, free T4 in 3 weeks , we will reach out with the results -follow up in 10 weeks (2) Morbid obesity due to excess calories: Code(s): E66.01 - Morbid (severe) obesity due to excess calories Category: Medical Plan: Noted some skin tags on the neck, very high BMI, does have some spacing between her teeth, reports increase in shoe size, does not wear rings to tell me if there has been an increase in ring size, but some of these features could be concerning for possible acromegaly. We will check IGF-1 and growth hormone levels. Plan: -ordered IGF-1 and growth hormone levels Plan I spent 45 minutes in reviewing the record, seeing the patient and documenting in the medical record. 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
[2025-01-15 08:24] VITALS: BP 108/68; PULSE 76; O2SAT 93
--- OUTSIDE RECORDS SUMMARY | 2025-01-15 08:35 | XMS_ITS | Clinical Summary ---
Author Organization 175 [facility] Address [address] [place] [address] Phone Care Team Providers Care Electrician Name Role Phone Hima Mccloud Primary Care [...] 11/24/2024 10:45 AM EDT Consult Orthopedic Surgery [facility] [address] [phone] Kolby Blankenship DPM Pain in left foot [...] 10:00 AM EDT Office Visit Orthopedic Surgery [facility] [address] [phone] Kolby Blankenship DPM [address] [address] Health Maintenance Due Date Last Done Comments [...] patient's age to complete this topic Insurance [address] [address] Care Teams Electrician Relationship Specialty Start Date End Date Hima Mccloud PA PCP - General Physician Wash And Greaser 09/29/24
== END 2025-01-15 09:07 | disposition home or self-care (01) ==
LOC: HO.ENCR 08:22
PROVIDERS: PCP Physician Assistant; Visit Provider Student in an Organized Health Care Education/Training Program
DX: E06.3 Autoimmune thyroiditis (principal); E66.01 Morbid (severe) obesity due to excess calories
CPT/HCPCS: 99204

== ENCOUNTER → 2025-01-15 08:21 | Outpatient (BNVA) | payer OTHER, SELFPAY | PROVIDERS: PCP Physician Assistant; Visit Provider Student in an Organized Health Care Education/Training Program | DX: E06.3 Autoimmune thyroiditis (principal); E66.01 Morbid (severe) obesity due to excess calories | CPT/HCPCS: 99202 ==

== ENCOUNTER 2025-02-02 08:23 | Outpatient (REF) | payer OTHER, SELFPAY ==
--- NOTE | ~2025-02-02 | CT_ITS ---
EXAMINATION: CT ANGIOGRAM CHEST CLINICAL INFORMATION: Hemoptysis. COMPARISON: None available. TECHNIQUE: Multiple axial images were obtained through the chest after the administration of 65 mL of Omnipaque 350 intravenous contrast. Extensive vascular post-processing including two-dimensional and three-dimensional reformatted images were created and reviewed on an independent workstation. SmartPrep technique. This CT examination was performed using dose optimization techniques as appropriate, variously including the following: *Automated exposure control *Adjustment of mA and/or kV according to patient size (this includes techniques or standardized protocols for targeted exams where dose is matched to indication/reason for exam; i.e. extremities or head) *Use of iterative reconstruction technique DLP: 222 mGy centimeter. FINDINGS: Patient's large body habitus/obesity. Inadequate smart prepped technique. Suboptimal IV contrast enhancement of the main left and right pulmonary artery branches and the subsegmental pulmonary branches. No aneurysm or dissection, thoracic aorta. No pericardial effusion. No mediastinal lymphadenopathy. No hemothorax. No pneumothorax. No gross pleural effusion. No gross consolidation. No bronchiectasis. No honeycombing. The respiratory airways is patent. No acute rib fracture. Multilevel spondylosis without acute fracture or listhesis in the axial skeleton. CT/CT angio chest PE protocol IMPRESSION: Inadequate evaluation of the pulmonary artery and its subsegmental pulmonary branches. No aneurysm or dissection, thoracic aorta. No acute airspace disease. Fleischner guidelines were followed. Electronically signed by: Michael Gould MD 02/02/2025 09:34 AM EDT
--- OUTSIDE RECORDS SUMMARY | 2025-02-02 08:26 | XMS_ITS | Clinical Summary ---
Author Organization 175 [facility] Address [address] [place] [address] Phone Care Team Providers Care Epic Professional Name Role Phone Hima Mccloud Primary [...] needed for dry skin. 400 g 2 05/0511/25/19 26 Active Encounters Date Type Department Care Team Description 11/24/2024 10:45 AM EDT Consult Orthopedic Surgery - [place] [address] [place] [address] [place] [phone] Kolby Blankenship, DPFaar Pain in left foot (Primary Dx); Calcaneal [...] 11/24/2024 10:53 AM EDT Plan of Treatment Health Maintenance Due Date Last Done Comments Breast Cancer Screening 1981 DTaP,Tdap,and Td Vaccines (1 - Tdap) 2000 Hepatitis B Vaccines (1 of 3 - 19+ 3-dose series) 2000 Cervical Cancer Screening: P ap Smear 2002 COVID-19 Vaccine (2023-2 5 season) 2024 Depression Screening 09/29/2024 HIV Screening 09/29/2024 Hepatitis C Screening 09/29/2024 Social Influencers of Health Screening 09/29/2024 Influenza Vaccine (#1) 2025 HIB Vaccines Aged Out No longer [...] 5 Years) and At-Risk Patients (6 to 49 Years) Aged Out No longer eligible b ased on patient's age to complete this topic RSV Immunization Patients Un johnna 20 months Aged Out No longer eligible b ased on patient's age to complete this topic Varicella Vaccines Aged Out No longer eligible based on patient's age to complete this topic Insurance [facility] [employer] Care Teams Epic Professional Relationship Specialty Start Date End Date Hima Mccloud PA PCP - General Physician Cloth Folder Machine 09/29/24
[2025-02-02] MEDS: iohexoL 350 MG/ML 100 ML INFUS..BTL IV (09:22)
[2025-02-02 10:38] LABS: Free T4 (Free Thyroxine) 1.15 ng/dL (0.71-1.85); Thyroid Stimulating Hormone 5.86 uIU/mL (0.32-4.0)
== END 2025-02-02 08:24 | disposition home or self-care (01) ==
LOC: HO.CT 08:23
PROVIDERS: Absent Provider Student in an Organized Health Care Education/Training Program; PCP Physician Assistant; Visit Provider Nurse Practitioner Family
DX: R04.2 Hemoptysis (principal); E03.9 Hypothyroidism, unspecified; E66.01 Morbid (severe) obesity due to excess calories; E66.813 Obesity, class 3
CPT/HCPCS: 36415; 71275; 83003; 84305; 84439; 84443; Q9967

== ENCOUNTER → 2025-02-02 08:25 | Outpatient (BNV) | payer OTHER, SELFPAY | PROVIDERS: Absent Provider Student in an Organized Health Care Education/Training Program; PCP Physician Assistant; Visit Provider Radiology Diagnostic Radiology | DX: R04.2 Hemoptysis (principal) | CPT/HCPCS: 71275 ==

== ENCOUNTER 2025-02-23 09:41 | Outpatient (AMB) | payer OTHER, SELFPAY ==
--- NOTE | 2025-02-23 09:47 | A.OFFVIS_ITS ---
Vital Signs 02/23/25 09:48 Height 5 ft 5.5 in Weight 356 lb BMI 58.3 BP 118/69 Blood Pressure Location Rt brachial Position Sitting Respiration 18 Pulse 75 Pulse Source Pulse Oximeter Pulse Oximetry (%) 97 Oxygen Delivery Method Room Air Intake Visit Reasons: Abnormal PFT Angle Shear Operator Required: No Allergies dog dander (DOG) Allergy (Unknown, Verified 02/23/25 09:47) SNEEZING/ITCHY pollen extracts (POLLEN) Allergy (Unknown, Verified 02/23/25 09:47) SNEEZING, ITCHY HPI HPI Abnormal PFT: Details: Gabby is a pleasant 44 year old female, current smoker, with approximately 40 pack year history with underlying asthma, HTN, hypothyroidism, and HLD. At the last visit she reported suboptimal control using Advair 115 mcg and switched to Advair 230 mcg. Unfortunately she reports minimal change and continues with dyspnea, wheezing and chest tightness. She also reports productive cough with yellowish brown sputum with associated chest congestion. Denies fevers, chills or sick contacts. She denies any visits to urgent care or hospitalizations related to respiratory distress since the last visit. Today she presents to review CTA and RAST results. [facility] Medical History Anemia Asthma Elevated cholesterol HTN (hypertension) Morbid obesity Lymphedema Hypothyroidism Surgical History History of endoscopy Family History Father No problems noted. Mother Hypertension Hypothyroidism Maternal Grandmother Lung cancer Maternal Grandfather Colon cancer Maternal Uncle Bone cancer Social History Housing: Apartment Alcohol intake: current Alcohol intake frequency: holidays/special occasions only Patient Tobacco Use Status: Current everyday Tobacco user Tobacco use type: Cigarette Cigarette Packs Per Day: 1 Cigarettes Per Day: 20 e-Cigarette/Vaping Use: Never Used Second Hand Smoke Exposure: Yes Substance Use Type: Marijuana service: No Current occupational status: unemployed Cognitive needs: No Hearing needs: No Vision needs: Yes (glasses) Review of Systems Const Denies chills, Denies excessive sweating, Denies fever(s), Denies headache(s) and Denies night sweats Eyes Denies dry eyes, Denies irritation and Denies itchy eyes ENT Reports Normal hearing present, Denies headache(s), Reports nasal congestion, Denies nasal discharge, Reports post nasal drip and Denies sore throat Card Denies chest pain, Denies chest pain at rest, Denies chest pain with activity, Denies claudication, Denies leg edema, Reports dyspnea on exertion, Denies orthopnea and Denies paroxysmal nocturnal dyspnea Resp Reports change in phlegm color, Reports chest congestion, Reports cough, Denies hemoptysis, Denies excessive phlegm production, Denies pain on inspiration, Denies pain with cough, Reports dyspnea on exertion, Denies stridor and Reports wheezing Musc Denies myalgias Neuro Reports Normal hearing present and Denies headache(s) Endo Denies excessive sweating Kristian/Lymph Denies lymphadenopathy Aller/Immun Denies itchy eyes and Reports wheezing Physical Exam Vital Signs: Last Vital Signs Pulse 75 02/23/25 09:48 Resp 18 02/23/25 09:48 BP 118/69 02/23/25 09:48 Pulse Ox 97 02/23/25 09:48 Oxygen Delivery Method Room Air 02/23/25 09:48 BMI result Body Mass Index 58.3 Const General: cooperative, healthy appearing, comfortable, no acute distress, well developed and alert Nutritional Appearance: obese Orientation/consciousness: patient oriented x3 Limitations: no limitations HEENT Head: Yes normal to inspection, Yes normocephalic and Yes atraumatic Ears: hearing grossly normal bilaterally and external ears normal Eyes General: appearance normal, both eyes and all related structures Eyelids: Yes eyelids normal Sclerae: sclerae normal EOM: EOMs intact bilaterally Neck Neck: Yes normal visual inspection and Yes no lymphadenopathy Lymphatic: no lymphadenopathy noted Chest Chest palpation & inspection: normal inspection of the chest Resp Effort & Inspection: normal respiratory effort, able to speak in complete sentences, no audible wheezes, no cough, no stridor, not tachypneic, no tripod positioning and no use of accessory muscles Auscultation: diminished lung sounds Cardio Jugular venous distension: no JVD Rate: regular rate Rhythm: regular rhythm Skin Other: warm, dry General skin exam: no rashes or lesions noted Neuro General: patient oriented x3 Cranial nerves: Yes Normal hearing present Cognition (Neuro): normal cognition Gait exam (Neuro): Normal gait present Extrem General: Yes normal to inspection, Yes capillary refill normal, Yes no clubbing, cyanosis or edema and Yes no pedal edema Psych Appearance: grossly normal and well kempt Speech and movement: Normal speech and movement present and Clear speech present Affect: normal affect Attitude: cooperative Thought process: Normal thought process present Thought content: Normal thought content present Insight: Good insight present (Psych) Judgement: Good judgement present (Psych) Assessment & Plan Assessment & Plan (1) Asthma: Code(s): J45.909 - Unspecified asthma, uncomplicated Category: Medical Qualifiers: Asthma complication type: uncomplicated Asthma persistence: intermittent Asthma severity: mild Qualified Code(s): J45.20 - Mild intermittent asthma, uncomplicated (2) Nicotine dependence, cigarettes, uncomplicated: Code(s): F17.210 - Nicotine dependence, cigarettes, uncomplicated Category: Medical Plan Patient continues with suboptimal control on Advair 230 mcg, will trial Trelegy as well as Flonase for allergic rhinitis. She currently reports bronchitic symptoms, will send in azithromycin. She is aware to call if symptoms do not improve. She was sent for CTA to assess for any underlying vascular malformations as she previously reported intermittent hemoptypsis which has since resolved and no significant abnormalities on CTA however poor visualization. May need further testing if hemoptypsis returns. RAST + dust mites, discussed ways to minimize allergen exposure. Smoking cessation reviewed, patient working towards quitting. All questions were answered and patient is in agreement of plan. Will follow up in 6-8 weeks or sooner if needed. Medications: New azithromycin For 250 mg dose pack: take 500 mg today (day 1), then 250 mg for 4 days (days 2-5) PO 6 tabs 0RF nhtbtqlhgqi-nnmbusgfn-qbsjmvno 200-62.5-25 mcg (Trelegy Ellipta) 1 inh inha lation DAILY 60 ea 3RF fluticasone propionate 50 mcg/actuation (Flonase Allergy Relief) administer into each nostril 1 spray intranasal DAILY 16 grams 3RF Discontinued fluticasone propion-salmeterol 230-21 mcg/actuation (Advair HFA) Discontinued Reason: Patient Completed Course 2 puffs inhalation Q12H 12 gr ams 6RF fluticasone propion-salmeterol 115-21 mcg/actuation (Advair HFA) Discontinued Reason: Patient Completed Course 2 puffs inhalation BID 30 days 12 grams 3RF J45.20 - Mild intermittent asthma, uncomplicated Coding Level of Care Code Est Pt Level 4 (58586) Diagnoses Mild intermittent asthma without complication J45.20 Asthma complication type: uncomplicated Asthma persistence: intermittent Asthma severity: mild Nicotine dependence, cigarettes, uncomplicated F17.210
[2025-02-23 09:48] VITALS: BP 118/69; PULSE 75; RESP 18; O2SAT 97; BMI 58.3
--- OUTSIDE RECORDS SUMMARY | 2025-02-23 10:14 | XMS_ITS | Clinical Summary ---
Author Organization 175 [facility] Address [address] [place] [address] Phone Care Team Providers Care Hand Sewer Name Role Phone Hima Mccloud Primary Care [...] 10:45 AM EDT Consult Orthopedic Surgery - [place] [address] [place] [address] [place] [id number] Kolby Blankenship, DPFara Pain in left foot (Primary Dx); Calcaneal [...] Vaccine (2023-2 5 season) 2024 Depression Screening 07/23/2024 HIV Screening 09/29/2024 Hepatitis C Screening 09/29/2024 [...] patient's age to complete this topic Insurance [facility] [place] [address] Care Teams Hand Sewer Relationship Specialty Start Date End Date Hima Mccloud PA PCP - General Physician Photo Technician 09/29/24
== END 2025-02-23 10:17 | disposition home or self-care (01) ==
LOC: HO.HPS 09:42
PROVIDERS: PCP Physician Assistant; Visit Provider Nurse Practitioner Family
DX: J45.20 Mild intermittent asthma, uncomplicated (principal); F17.210 Nicotine dependence, cigarettes, uncomplicated
CPT/HCPCS: 99214

== ENCOUNTER → 2025-02-23 09:41 | Outpatient (BNVA) | payer OTHER, SELFPAY | PROVIDERS: PCP Physician Assistant; Visit Provider Nurse Practitioner Family | DX: J45.20 Mild intermittent asthma, uncomplicated (principal); Z91.09 Other allergy status, other than to drugs and biological substances; F17.210 Nicotine dependence, cigarettes, uncomplicated | CPT/HCPCS: 99212 ==

== ENCOUNTER 2025-03-13 09:22 | Outpatient (REF) | payer OTHER, SELFPAY ==
--- OUTSIDE RECORDS SUMMARY | 2025-03-13 09:29 | XMS_ITS | Clinical Summary ---
Author Organization 175 [facility] Address [address] [place] [address] Phone Care Team Providers Care Fruit Tester Name Role Phone Hima Mccloud Primary Care [...] skin. 400 g 2 05/0511/25/19 26 Active Social History Tobacco Use Types Packs/Day Years [...] age to complete this topic Insurance [facility] Care Teams Fruit Tester Relationship Specialty Start Date End Date Hima Mccloud PA PCP - General Physician Desk Reporter 09/29/24
[2025-03-13 11:10] LABS: Free T4 (Free Thyroxine) 1.44 ng/dL (0.71-1.85); Thyroid Stimulating Hormone 1.84 uIU/mL (0.32-4.0)
== END 2025-03-13 09:23 | disposition home or self-care (01) ==
LOC: HO.LAB 09:22
PROVIDERS: PCP Physician Assistant; Visit Provider Student in an Organized Health Care Education/Training Program
DX: E06.3 Autoimmune thyroiditis (principal)
CPT/HCPCS: 36415; 84439; 84443

== ENCOUNTER 2025-03-26 08:22 | Outpatient (AMB) | payer OTHER, SELFPAY ==
[2025-03-26 08:24] VITALS: BP 118/78; PULSE 80; O2SAT 96; BMI 57.8
--- NOTE | 2025-03-26 08:24 | A.OFFVIS_ITS ---
Vital Signs 03/26/25 08:24 Height 5 ft 5.5 in Weight 352 lb 11.834 oz BMI 57.8 BP 118/78 Blood Pressure Location Rt brachial Position Sitting Pulse 80 Pulse Source Pulse Oximeter Pulse Oximetry (%) 96 Oxygen Delivery Method Room Air Intake Visit Reasons: Hypothyroidism (Adult) Intake Note: Patient present today for adult Hypothyroidism office visit. Installment Account Checker Required: No Accompanied by: Self / Same As Patient Allergies dog dander (DOG) Allergy (Unknown, Verified 03/26/25 08:26) SNEEZING/ITCHY pollen extracts (POLLEN) Allergy (Unknown, Verified 03/26/25 08:26) SNEEZING, ITCHY Medication List - Last Reconciled 03/26/25 by Loida Jacobsen MD albuterol sulfate 90 mcg/actuation 1 inh inhalation QID PRN 90 days fluticasone furoate-vilanterol 200-25 mcg/dose (Breo Ellipta) 1 inh inhalation DAILY fluticasone propionate 50 mcg/actuation (Flonase Allergy Relief) 1 spray intranasal DAILY pitprrvtrsl-lunvrxcpp-sbxerueo 200-62.5-25 mcg (Trelegy Ellipta) 1 inh inhalation DAILY hydrochlorothiazide 12.5 mg PO DAILY 90 days levothyroxine 200 mcg PO DAILY 30 days magnesium oxide 250 mg PO BID 90 days polyethylene glycol 3350 (Miralax) 17 grams PO DAILY 30 days riboflavin (vitamin B2) (Vitamin B-2) 200 mg PO BID riboflavin (vitamin B2) 400 mg PO DAILY 90 days simvastatin 20 mg PO DAILY sumatriptan succinate take 1 tab at onset of headache; if no relief may repeat 1 tab after at least 2 hrs; max = 4 tabs/24 hr PO 30 days umeclidinium 62.5 mcg/actuation (Incruse Ellipta) 1 inh inhalation DAILY HPI Comments Details: 44-year-old female here today for follow up of hypothyroidism. Hypothyroidism diagnosed sometime around 2014 Reports initially was not good about taking the medication but now for the past 2 years good about taking the medicine Now on levothyroxine 200 mcg daily, was previously on 175 for at least a year , increased 12/23/24. Says in the last month she might have missed it 3-4 times. Back in August 2024 TSH was normal at 2.8, then in November 2024 TSH went up to 25.16 with free T4 normal at 0.82, labs repeated 12/29/2024 showed TSH improved but still high at 19.98 with a free T4 of 1.07. Patient currently denies hair loss, , mood changes, changes in appearance of eyes or vision changes,, increased diaphoresis or dry skin. Reports some increased tiredness. Has constipation resolved with miralax. no palpitations. Has some history of anxiety and associated tremors. ?has lost some weight but seeing bariatric surgery with plan for sleeve gastrectomy in the future and working on weight loss with them. Reports some difficulty swallowing. Feels she is getting a lisp intermittently Patient denies any history of childhood neck radiation. Denies having ever used lithium, amiodarone or biotin supplements. Patient denies any family history of thyroid cancer. Mother: hypothyroidism Maternal uncle: hypothyroidism. Interval history 03/26/2025 Blood work from February shows normal TSH and free T4 Continues on levothyroxine 200 mcg daily Physical exam General: sitting comfortably in no acute distress HEENT: normocephalic/atraumatic, skin tags noted on the neck Neck: supple, symmetrical Cardiac: normal heart sounds Pulm: normal breath sounds B/L, no added breath sounds Abd: not distended, no tenderness Extremities: no edema, no signs of myxedema Neuro: AAO x3, Speech: normal, no facial droop, moving all 4 extremities Laboratory Tests 01/22/19 04/25/19 12/11/23 15:49 09:35 07:49 Free T4 < 0.40 L 1.00 TSH 9.68 H Thyroid Peroxidase Ab 1774 H 09/12/24 12/17/24 12/29/24 10:23 09:25 11:11 Free T4 0.82 1.07 TSH 2.80 25.16 H 19.98 H Thyroid Peroxidase Ab Laboratory Tests 12/29/24 02/02/25 03/13/25 11:11 09:16 09:42 TSH 19.98 H 5.86 H 1.84 Free T4 1.07 1.15 1.44 Human Growth Hormone 0.1 Somatomedin-C 126 PFSH Medical History Anemia Asthma Elevated cholesterol HTN (hypertension) Morbid obesity Lymphedema Hypothyroidism Surgical History History of endoscopy Family History Father No problems noted. Mother Hypertension Hypothyroidism Maternal Grandmother Lung cancer Maternal Grandfather Colon cancer Maternal Uncle Bone cancer Social History Housing: Apartment Alcohol intake: current Alcohol intake frequency: holidays/special occasions only Patient Tobacco Use Status: Current everyday Tobacco user Tobacco use type: Cigarette Cigarette Packs Per Day: 1 Cigarettes Per Day: 20 e-Cigarette/Vaping Use: Never Used Second Hand Smoke Exposure: Yes Substance Use Type: Marijuana service: No Current occupational status: unemployed Cognitive needs: No Hearing needs: No Vision needs: Yes (glasses) Physical Exam Vital Signs: Oxygen Delivery Method Room Air 03/26/25 08:24 BMI result Body Mass Index 57.8 Assessment & Plan Assessment & Plan (1) Hypothyroidism: Code(s): E03.9 - Hypothyroidism, unspecified Category: Medical Qualifiers: 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 Most recent blood work from February 2025 shows normal TSH and free T4 Plan: -continue levothyroxine 200 mcg daily -do blood work ordered TSH, free T4 few days prior to follow up in 1 year -follow up in 1 year Plan See above Orders: Orders Free T4 (Free Thyroxine) 03/05/26 E06.3 - Autoimmune thyroiditis Thyroid Stimulating Hormone 03/05/26 E06.3 - Autoimmune thyroiditis Medications: Refilled levothyroxine 200 mcg PO DAILY 90 tabs 4RF 30 days E03.9 - Hypothyroidism, unspecified Patient Instructions: Do blood work a week prior to your next appointment in 1 year Continue levothyroxine as it is Coding Level of Care Code Est Pt Level 3 (28802) Diagnoses 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
--- OUTSIDE RECORDS SUMMARY | 2025-03-26 08:47 | XMS_ITS | Clinical Summary ---
Author Organization 175 [facility] Address [address] [place] [address] Phone Care Team Providers Care Refractory Specialist Name Role Phone Hima Mccloud Primary Care [...] Cervical Cancer Screening: P ap Smear 2002 Depression Screening 07/23/2024 HIV Screening 09/29/2024 Hepatitis C Screening 09/29/2024 Social Influencers of Health Screening 09/29/2024 COVID-19 Vaccine (2023-2 5 season) 2025 Influenza Vaccine (#1) 2025 HIB Vaccines Aged [...] patient's age to complete this topic Insurance [facility] [employer] Care Teams Refractory Specialist Relationship Specialty Start Date End Date Hima Mccloud PA PCP - General Physician Welder Gas Automatic 09/29/24
== END 2025-03-26 08:34 | disposition home or self-care (01) ==
LOC: HO.ENCR 08:23
PROVIDERS: PCP Physician Assistant; Visit Provider Student in an Organized Health Care Education/Training Program
DX: E06.3 Autoimmune thyroiditis (principal)
CPT/HCPCS: 99213

== ENCOUNTER → 2025-03-26 08:22 | Outpatient (BNVA) | payer OTHER, SELFPAY | PROVIDERS: PCP Physician Assistant; Visit Provider Student in an Organized Health Care Education/Training Program | DX: E06.3 Autoimmune thyroiditis (principal) | CPT/HCPCS: 99212 ==

== ENCOUNTER 2025-04-13 09:44 | Outpatient (AMB) | payer OTHER, SELFPAY ==
--- NOTE | 2025-04-13 10:08 | MHC.OFFVIS ---
Vital Signs 04/13/25 10:09 Height 5 ft 5.5 in Weight 358 lb 4.019 oz BMI 58.7 BP 144/88 H Blood Pressure Location Rt brachial Position Sitting Pulse 76 Pulse Source Pulse Oximeter Pulse Oximetry (%) 96 Oxygen Delivery Method Room Air Intake Visit Reasons: Asthma Allergies dog dander (DOG) Allergy (Unknown, Verified 04/13/25 10:13) SNEEZING/ITCHY pollen extracts (POLLEN) Allergy (Unknown, Verified 04/13/25 10:13) SNEEZING, ITCHY HPI HPI Asthma: Details: Gabby is a pleasant 44 year old female, current 40 pack year smoker, with underlying asthma, HTN, hypothyroidism, and HLD. At the last visit she was switched from Advair 230 mcg to Trelegy but difficult to assess effectiveness as she developed a productive cough with tenacious mucus, increased dyspnea, chest congestion with inability to expectorate shortly after completing azithromycin prescribed at the last visit. She denies fevers, chills or sick contacts. She denies any visits to urgent care or hospitalizations related to respiratory distress since the last visit. Of note, she has also reported ongoing daytime fatigue and reports prior h/o DEVI. She also reports witnessed apneas, morning headaches, loud snoring, paroxsymal nocturnal dyspnea and nonrestorative sleep. Denies recent PSG. [facility] Medical History Anemia Asthma Elevated cholesterol HTN (hypertension) Morbid obesity Lymphedema Hypothyroidism Surgical History History of endoscopy Family History Father No problems noted. Mother Hypertension Hypothyroidism Maternal Grandmother Lung cancer Maternal Grandfather Colon cancer Maternal Uncle Bone cancer Social History Housing: Apartment Alcohol intake: current Alcohol intake frequency: holidays/special occasions only Patient Tobacco Use Status: Current everyday Tobacco user Tobacco use type: Cigarette Cigarette Packs Per Day: 1 Cigarettes Per Day: 20 e-Cigarette/Vaping Use: Never Used Second Hand Smoke Exposure: Yes Substance Use Type: Marijuana service: No Current occupational status: unemployed Cognitive needs: No Hearing needs: No Vision needs: Yes (glasses) Review of Systems Const Denies chills, Denies excessive sweating, Denies fever(s), Reports headache(s) and Denies night sweats Eyes Denies dry eyes, Denies irritation and Denies itchy eyes ENT Reports Normal hearing present, Reports headache(s), Reports nasal congestion, Denies nasal discharge, Reports post nasal drip and Denies sore throat Card Denies chest pain, Denies chest pain at rest, Denies chest pain with activity, Denies claudication, Denies leg edema, Reports dyspnea on exertion, Denies orthopnea and Denies paroxysmal nocturnal dyspnea Resp Reports change in phlegm color, Reports chest congestion, Reports cough, Denies hemoptysis, Denies excessive phlegm production, Denies pain on inspiration, Denies pain with cough, Reports dyspnea on exertion, Denies stridor and Reports wheezing Musc Denies myalgias Neuro Reports Normal hearing present and Reports headache(s) Endo Denies excessive sweating Kristian/Lymph Denies lymphadenopathy Aller/Immun Denies itchy eyes and Reports wheezing Physical Exam Vital Signs: Last Vital Signs Pulse 76 04/13/25 10:09 BP 144/88 H 04/13/25 10:09 Pulse Ox 96 04/13/25 10:09 Oxygen Delivery Method Room Air 04/13/25 10:09 BMI result Body Mass Index 58.7 Const General: cooperative, healthy appearing, comfortable, no acute distress, well developed and alert Nutritional Appearance: obese Orientation/consciousness: patient oriented x3 Limitations: no limitations HEENT Head: Yes normal to inspection, Yes normocephalic and Yes atraumatic Ears: hearing grossly normal bilaterally and external ears normal Eyes General: appearance normal, both eyes and all related structures Eyelids: Yes eyelids normal Sclerae: sclerae normal EOM: EOMs intact bilaterally Neck Neck: Yes normal visual inspection and Yes no lymphadenopathy Lymphatic: no lymphadenopathy noted Chest Chest palpation & inspection: normal inspection of the chest Resp Effort & Inspection: normal respiratory effort, able to speak in complete sentences, no audible wheezes, no cough, no stridor, not tachypneic, no tripod positioning and no use of accessory muscles Auscultation: diminished lung sounds Cardio Jugular venous distension: no JVD Rate: regular rate Rhythm: regular rhythm Skin Other: warm, dry General skin exam: no rashes or lesions noted Neuro General: patient oriented x3 Cranial nerves: Yes Normal hearing present Cognition (Neuro): normal cognition Gait exam (Neuro): Normal gait present Extrem General: Yes normal to inspection, Yes capillary refill normal, Yes no clubbing, cyanosis or edema and Yes no pedal edema Psych Appearance: grossly normal and well kempt Speech and movement: Normal speech and movement present and Clear speech present Affect: normal affect Attitude: cooperative Thought process: Normal thought process present Thought content: Normal thought content present Insight: Good insight present (Psych) Judgement: Good judgement present (Psych) Assessment & Plan Assessment & Plan (1) Asthma: Code(s): J45.909 - Unspecified asthma, uncomplicated Category: Medical Qualifiers: Asthma complication type: uncomplicated Asthma persistence: intermittent Asthma severity: mild Qualified Code(s): J45.20 - Mild intermittent asthma, uncomplicated (2) Nicotine dependence, cigarettes, uncomplicated: Code(s): F17.210 - Nicotine dependence, cigarettes, uncomplicated Category: Medical (3) Witnessed episode of apnea: Code(s): R06.81 - Apnea, not elsewhere classified Category: Medical (4) Daytime somnolence: Code(s): R40.0 - Somnolence Category: Medical Plan Will treat bronchitic symptoms with Augmentin. She is aware to call if symptoms do not improve. Encouraged continued use of Trelegy. Patient reports prior h/o DEVI and continues with significant symptoms suggestive of DEVI. Will send for home sleep study. Smoking cessation reviewed, patient working towards quitting. All questions were answered and patient is in agreement of plan. Will follow up in 6-8 weeks or sooner if needed. Orders: Orders RT home sleep study Today R06.81 - Apnea, not elsewhere classified, R40.0 - Somnolence Medications: New amoxicillin-pot clavulanate 875-125 mg 1 tab PO Q12H 20 tabs 0RF Coding Level of Care Code Est Pt Level 4 (39350) Diagnoses Mild intermittent asthma without complication J45.20 Asthma complication type: uncomplicated Asthma persistence: intermittent Asthma severity: mild Nicotine dependence, cigarettes, uncomplicated F17.210 Witnessed episode of apnea R06.81 Daytime somnolence R40.0
[2025-04-13 10:09] VITALS: BP 144/88; PULSE 76; O2SAT 96; BMI 58.7
--- OUTSIDE RECORDS SUMMARY | 2025-04-13 11:39 | XMS_ITS | Clinical Summary ---
Author Organization 175 [facility] Address [address] [place] [address] Phone Care Team Providers Care Engineer Second Assistant Name Role Phone Hima Mccloud Primary Care [...] Influencers of Health Screening 09/29/2024 COVID-19 Vaccine (1 - 2023-2 5 season) 2025 Influenza Vaccine (#1) 2025 RSV Immunization Adult Patie nts (1 - 1-dose 75+ series) 2056 HIB Vaccines Aged Out No longer eligi [...] patient's age to complete this topic Insurance [facility] [employer] Care Teams Engineer Second Assistant Relationship Specialty Start Date End Date Hima Mccloud PA PCP - General Physician Home Health Administrator 09/29/24
== END 2025-04-13 10:39 | disposition home or self-care (01) ==
LOC: HO.HPS 09:45
PROVIDERS: PCP Physician Assistant; Visit Provider Nurse Practitioner Family
DX: J45.20 Mild intermittent asthma, uncomplicated (principal); F17.210 Nicotine dependence, cigarettes, uncomplicated; R06.81 Apnea, not elsewhere classified; R40.0 Somnolence
CPT/HCPCS: 99214

== ENCOUNTER → 2025-04-13 09:44 | Outpatient (BNVA) | payer OTHER, SELFPAY | PROVIDERS: PCP Physician Assistant; Visit Provider Nurse Practitioner Family | DX: J45.20 Mild intermittent asthma, uncomplicated (principal); Z91.09 Other allergy status, other than to drugs and biological substances; F17.210 Nicotine dependence, cigarettes, uncomplicated; R06.81 Apnea, not elsewhere classified; R40.0 Somnolence | CPT/HCPCS: 99212 ==

== ENCOUNTER 2025-04-14 12:09 | Outpatient (AMB) | payer OTHER, SELFPAY ==
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
--- OUTSIDE RECORDS SUMMARY | 2025-04-14 15:03 | XMS_ITS | Clinical Summary ---
Author Organization [address] [facility] Address [address] [place] [address] Phone Care Team Providers Care Assistant Terminal Manager Name Role Phone Hima Mccloud Primary [...] patient's age to complete this topic Insurance [facility] Care Teams Assistant Terminal Manager Relationship Specialty Start Date End Date Hima Mccloud PA PCP - General Physician Conductor/Engineer 09/29/24
== END 2025-04-14 13:13 | disposition home or self-care (01) ==
LOC: HO.HBST 12:09
PROVIDERS: PCP Physician Assistant; Visit Provider Counselor Mental Health
DX: F43.9 Reaction to severe stress, unspecified (principal); F32.A Depression, unspecified; F41.3 Other mixed anxiety disorders; Z72.4 Inappropriate diet and eating habits; Z71.89 Other specified counseling
CPT/HCPCS: 90837

== ENCOUNTER 2025-05-05 09:21 | Outpatient (AMB) | payer OTHER, SELFPAY ==
--- NOTE | 2025-05-05 09:15 | A.OFFWM_ITS ---
Intake Intake Visit Reasons: VIDEO Intake Part 2 Allergies dog dander (DOG) Allergy (Unknown, Verified 04/21/25 09:41) SNEEZING/ITCHY pollen extracts (POLLEN) Allergy (Unknown, Verified 04/21/25 09:41) SNEEZING, ITCHY PFSH Medical History Anemia Asthma Elevated cholesterol HTN (hypertension) Morbid obesity Lymphedema Hypothyroidism Surgical History History of endoscopy Family History Father No problems noted. Mother Hypertension Hypothyroidism Maternal Grandmother Lung cancer Maternal Grandfather Colon cancer Maternal Uncle Bone cancer Social History Housing: Apartment Alcohol intake: current Alcohol intake frequency: holidays/special occasions only Patient Tobacco Use Status: Current everyday Tobacco user Tobacco use type: Cigarette Cigarette Packs Per Day: 1 Cigarettes Per Day: 20 e-Cigarette/Vaping Use: Never Used Second Hand Smoke Exposure: Yes Substance Use Type: Marijuana service: No Current occupational status: unemployed Cognitive needs: No Hearing needs: No Vision needs: Yes (glasses) Behavioral Health Assessment Weight Management Therapy Therapy Notes Details Subjective: Patient reports she was referred to a prescriber at her therapy location and has been prescribed Lexapro 10 mg, which she started 4 days ago. She attended a weight check on 04/28, with a recorded weight of 347 lbs, and plans to attend her weekly weight check today. Patient reports some difficulty using [employer] platform; this provider assisted her during the session. She expresses motivation to continue with her weight management plan but notes ongoing challenges with consistency in meal planning and exercise routines. Objective: Patient presents for a pre-operative behavioral health follow-up visit. Discussed progress, current functioning, and ongoing challenges related to weight management and medication initiation. Assisted patient in creating a structured meal and exercise plan using [employer] site. Utilized CBT techniques to support habit-building by identifying small, achievable behavioral changes. Updated RN-program with current progress and interventions. Assessment/Response: * Mental status: Patient is alert and oriented x3, mood euthymic, affect appropriate, thought process logical, no evidence of psychosis or cognitive im pairment. * Risk reported/identified: none Patient is making gradual progress toward pre-operative goals. She is adherent to weekly weight checks and is open to behavioral interventions. Some difficulty with technology and consistency, but demonstrates willingness to learn and engage. Assessment & Plan Assessment & Plan (1) Trauma and stressor-related disorder: Code(s): F43.9 - Reaction to severe stress, unspecified (2) Depression, unspecified: Code(s): F32.A - Depression, unspecified (3) Anxiety disorder: Code(s): F41.9 - Anxiety disorder, unspecified Plan Follow up in 2 weeks to continue working on readiness for weight-loss surgery. Patient to continue attending weekly in-person weight checks. Continue Lexapro as prescribed and monitor for side effects. Reinforce use of CBT strategies for habit formation and self-monitoring. * Next appointment: 05/19 at 12:00 PM (phone call). Telehealth Telehealth Telehealth Platform: [employer] Location of provider rendering services: other (Home office. [place], [place]) Location of patient: address on file Patient Identification confirmed using: Name, : Yes Telehealth method: voice only Patient verbally consented to treatment: Yes Patient verbally consented to billing insurance company: Yes Patient informed of any privacy concerns related to visit: Yes Minutes spent on Phone/Video with Pt.: 45 Coding Level of Care Code Established Pt Tele Psytx 45 mins ([id number]) Patient Type Established Diagnoses Trauma and stressor-related disorder F43.9 Depression, unspecified F32.A Anxiety disorder F41.9 Time Spent (min) 45
--- OUTSIDE RECORDS SUMMARY | 2025-05-05 10:13 | XMS_ITS | Clinical Summary ---
Author Organization [address] [facility] Address [address] [place] [address] Phone Care Team Providers Care Railroad Engineer Name Role Phone Hiam Mccloud Primary Care Provider Allergies Active Allergy [...] Cervical Cancer Screening: P ap Smear 2002 HPV Vaccines (1 - 3-dose SCD M series) 2008 Depression Screening 07/23/2024 HIV Screening 09/29/2024 Hepatitis C Screening 09/29/2024 Social Influencers of Health Screening 09/29/2024 COVID-19 Vaccine ( - 2023-2 5 season) 2025 Influenza Vaccine [...] patient's age to complete this topic Insurance [facility] Care Teams Railroad Engineer Relationship Specialty Start Date End Date Hima Mccloud PA PCP - General Physician Distributor Advertising Material 09/29/24
== END 2025-05-05 10:04 | disposition home or self-care (01) ==
PROVIDERS: PCP Physician Assistant; Visit Provider Counselor Mental Health
DX: F43.9 Reaction to severe stress, unspecified (principal); F32.A Depression, unspecified; F41.9 Anxiety disorder, unspecified
CPT/HCPCS: 90834

== ENCOUNTER 2025-06-15 11:24 | Outpatient (AMB) | payer OTHER, SELFPAY ==
--- NOTE | 2025-06-15 11:37 | MHC.OFFVIS ---
Vital Signs 06/15/25 11:39 Height 5 ft 5.5 in Weight 356 lb 0.745 oz BMI 58.3 BP 136/72 Blood Pressure Location Rt radial Position Sitting Pulse 77 Pulse Source Pulse Oximeter Pulse Oximetry (%) 97 Oxygen Delivery Method Room Air Intake Visit Reasons: Asthma Allergies dog dander (DOG) Allergy (Unknown, Verified 06/15/25 11:42) SNEEZING/ITCHY pollen extracts (POLLEN) Allergy (Unknown, Verified 06/15/25 11:42) SNEEZING, ITCHY HPI HPI Asthma: Details: Gabby is a pleasant 44 year old female, current 40 pack year smoker, with underlying asthma, HTN, hypothyroidism, and HLD. At the last visit she reported bronchitic symptoms that improved with Augmentin, now cough with clear sputum however continues with dyspnea and wheezing. She has been using Breo and Incruse although reports suboptimal control, unfortunately continues to smoke 1 ppd. She denies fevers, chills or sick contacts. She denies any visits to urgent care or hospitalizations related to respiratory distress since the last visit. Prior IgE elevated, 238 with +RAST. Of note, she has also reported symptoms suggestive of DEVI and is awaiting HST to be scheduled. [facility] Medical History Anemia Asthma Elevated cholesterol HTN (hypertension) Morbid obesity Lymphedema Hypothyroidism Surgical History History of endoscopy Family History Father No problems noted. Mother Hypertension Hypothyroidism Maternal Grandmother Lung cancer Maternal Grandfather Colon cancer Maternal Uncle Bone cancer Social History Housing: Apartment Alcohol intake: current Alcohol intake frequency: holidays/special occasions only Patient Tobacco Use Status: Current everyday Tobacco user Tobacco use type: Cigarette Cigarette Packs Per Day: 1 Cigarettes Per Day: 20 e-Cigarette/Vaping Use: Never Used Second Hand Smoke Exposure: Yes Substance Use Type: Marijuana service: No Current occupational status: unemployed Cognitive needs: No Hearing needs: No Vision needs: Yes (glasses) Review of Systems Const Denies chills, Denies excessive sweating, Denies fever(s) and Denies night sweats Eyes Denies dry eyes, Denies irritation and Denies itchy eyes ENT Reports Normal hearing present, Reports nasal congestion, Denies nasal discharge, Reports post nasal drip and Denies sore throat Card Denies chest pain, Denies chest pain at rest, Denies chest pain with activity, Denies claudication, Denies leg edema, Reports dyspnea on exertion and Denies orthopnea Resp Denies change in phlegm color, Reports chest congestion, Reports cough, Denies hemoptysis, Denies excessive phlegm production, Denies pain on inspiration, Denies pain with cough, Reports dyspnea on exertion, Denies stridor and Reports wheezing Musc Denies myalgias Neuro Reports Normal hearing present Endo Denies excessive sweating Kristian/Lymph Denies lymphadenopathy Aller/Immun Denies itchy eyes and Reports wheezing Physical Exam Vital Signs: Last Vital Signs Pulse 77 06/15/25 11:39 BP 136/72 06/15/25 11:39 Pulse Ox 97 06/15/25 11:39 Oxygen Delivery Method Room Air 06/15/25 11:39 BMI result Body Mass Index 58.3 Const General: cooperative, comfortable, no acute distress, well developed and alert Nutritional Appearance: obese Orientation/consciousness: patient oriented x3 Limitations: no limitations HEENT Head: Yes normal to inspection, Yes normocephalic and Yes atraumatic Ears: hearing grossly normal bilaterally and external ears normal Eyes General: appearance normal, both eyes and all related structures Eyelids: Yes eyelids normal Sclerae: sclerae normal EOM: EOMs intact bilaterally Neck Neck: Yes normal visual inspection and Yes no lymphadenopathy Lymphatic: no lymphadenopathy noted Chest Chest palpation & inspection: normal inspection of the chest Resp Effort & Inspection: normal respiratory effort, able to speak in complete sentences, no audible wheezes, no cough, no stridor, not tachypneic, no tripod positioning and no use of accessory muscles Auscultation: diminished lung sounds Cardio Jugular venous distension: no JVD Rate: regular rate Rhythm: regular rhythm Skin Other: warm, dry General skin exam: no rashes or lesions noted Neuro General: patient oriented x3 Cranial nerves: Yes Normal hearing present Cognition (Neuro): normal cognition Gait exam (Neuro): Normal gait present Extrem General: Yes normal to inspection, Yes capillary refill normal, Yes no clubbing, cyanosis or edema and Yes no pedal edema Psych Appearance: grossly normal and well kempt Speech and movement: Normal speech and movement present and Clear speech present Affect: normal affect Attitude: cooperative Thought process: Normal thought process present Thought content: Normal thought content present Insight: Good insight present (Psych) Judgement: Good judgement present (Psych) Assessment & Plan Assessment & Plan (1) Asthma: Code(s): J45.909 - Unspecified asthma, uncomplicated Category: Medical Qualifiers: Asthma severity: mild Asthma persistence: intermittent Asthma complication type: uncomplicated Qualified Code(s): J45.20 - Mild intermittent asthma, uncomplicated (2) Nicotine dependence, cigarettes, uncomplicated: Code(s): F17.210 - Nicotine dependence, cigarettes, uncomplicated Category: Medical (3) Witnessed episode of apnea: Code(s): R06.81 - Apnea, not elsewhere classified Category: Medical (4) Daytime somnolence: Code(s): R40.0 - Somnolence Category: Medical Plan Gabby continues to report suboptimal control on current regimen, of Breo and Incruse, will add nebulized therapy to use PRN. If no improvements may need to consider biologic therapy however we did discuss importance of smoking cessation and weight loss. She is aware to call if symptoms do not improve. Awaiting HST to be scheduled. All questions were answered and patient is in agreement of plan. Will follow up in 6-8 weeks or sooner if needed. Medications: New ipratropium-albuterol 0.5 mg-3 mg(2.5 mg base)/3 mL 3 mL inhalation Q6H PRN 180 mL 3RF wheezing Coding Level of Care Code Est Pt Level 4 (19577) Diagnoses Mild intermittent asthma without complication J45.20 Asthma severity: mild Asthma persistence: intermittent Asthma complication type: uncomplicated Nicotine dependence, cigarettes, uncomplicated F17.210 Witnessed episode of apnea R06.81 Daytime somnolence R40.0
[2025-06-15 11:39] VITALS: BP 136/72; PULSE 77; O2SAT 97; BMI 58.3
--- OUTSIDE RECORDS SUMMARY | 2025-06-15 15:03 | XMS_ITS | Clinical Summary ---
Author Organization [address] [facility] Address [address] [place] [address] Phone Care Team Providers Care Gl Accountant Name Role Phone Hima Mccloud Primary Care Provider [phone] Allergies Active Allergy Reactions Criticality Noted Date [...] Health Screening 09/29/2024 COVID-19 Vaccine ( - 2024-2 6 season) 2025 Influenza Vaccine (#1) 2025 RSV [...] complete this topic RSV Immunization Patients Un ojhnna 20 months Aged Out No longer eligible b ased on patient's age to complete this topic Varicella Vaccines Aged Out No longer eligible based on patient's age to complete this topic Insurance [facility] [place] [address] Care Teams Gl Accountant Relationship Specialty Start Date End Date Hima Mccloud PA PCP - General Physician Nursing Home Admissions Director 09/29/24
== END 2025-06-15 12:05 | disposition home or self-care (01) ==
LOC: HO.HPS 11:25
PROVIDERS: PCP Physician Assistant; Visit Provider Nurse Practitioner Family
DX: J45.20 Mild intermittent asthma, uncomplicated (principal); F17.210 Nicotine dependence, cigarettes, uncomplicated; R06.81 Apnea, not elsewhere classified; R40.0 Somnolence
CPT/HCPCS: 99214

== ENCOUNTER → 2025-06-15 11:24 | Outpatient (BNVA) | payer OTHER, SELFPAY | PROVIDERS: PCP Physician Assistant; Visit Provider Nurse Practitioner Family | DX: J45.20 Mild intermittent asthma, uncomplicated (principal); Z91.09 Other allergy status, other than to drugs and biological substances; F17.210 Nicotine dependence, cigarettes, uncomplicated; R06.81 Apnea, not elsewhere classified; R40.0 Somnolence | CPT/HCPCS: 99212 ==